=== PATIENT | female | born 1995 | race Caucasian/White ===

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

== ENCOUNTER 2017-04-17 13:39 | Emergency (ER) | payer OTHER ==
[~2017-04-17] VITALS: Ht 167.6 cm; Wt 81.6 kg
[~2017-04-17 13:39] MED LIST changes: +NAPR-695 PO; -NAPR375T3 PO
[2017-04-17 14:49] LABS: BASO # 0.1 x10^3/uL (0.0-0.2); BASO % 1 % (0-3); EOS % 1 % (0-3); HEMATOCRIT 27.6 % (36.0-47.0); HEMOGLOBIN 8.4 g/dL (12.0-15.5); LYMPH # 2.3 x10^3/uL (1.0-4.8); LYMPH % 31 % (24-48); MEAN CORPUSCULAR HEMOGLOBIN 21 pg (25-35); MEAN CORPUSCULAR HGB CONC 30 g/dL (31-37); MEAN CORPUSCULAR VOLUME 68 fL (79-100); MONO # 0.9 x10^3/uL (0.0-1.1); MONO % 13 % (0-9); NEUT % 55 % (31-73); PLATELET COUNT 348 x10^3/uL (140-400); RED BLOOD COUNT 4.08 x10^6/uL (3.50-5.40); RED CELL DISTRIBUTION WIDTH 18.6 % (11.5-14.5); WHITE BLOOD COUNT 7.3 x10^3/uL (4.0-11.0)
[2017-04-17 15:04] LABS: CALCIUM 9.5 mg/dL (8.5-10.1); CREATININE 0.9 mg/dL (0.6-1.0); GFR 80.7; MAGNESIUM 2.2 mg/dL (1.8-2.4); POTASSIUM 3.6 mmol/L (3.5-5.1); TOTAL BILIRUBIN 0.2 mg/dL (0.2-1.0); TOTAL PROTEIN 8.2 g/dL (6.4-8.2)
[2017-04-17] MEDS ORDERED: IV NORMAL SALINE 500ML 500 ML ONE (15:24)
[2017-04-17] MEDS ORDERED: VANCOMYCIN 1 GM VIAL. ONE (15:24)
[2017-04-17] MEDS ORDERED: VANCOMYCIN PER PHARMACY MC PRN (15:30)
[2017-04-17] MEDS ORDERED: PIPERACILLIN/TAZO IV Push 3.375 GM VIAL. IVP ONE (15:30)
[2017-04-17] MEDS ORDERED: PIPERACILLIN/TAZOBACTAM 3.375 GM in IV NORMAL SALINE 50ML 50 ML IV ONE (15:30)
[2017-04-17] MEDS ORDERED: VANCOMYCIN 2 GM in IV NORMAL SALINE 500ML 500 ML IV ONE (15:30)
[2017-04-17] MEDS ORDERED: ONDANSETRON PF 4 MG/2 ML VIAL. IV ONE (15:45)
--- NOTE | 2017-04-17 17:46 | PHYS DOC ---
Past History Past Medical History: Asthma Past Surgical History: No Surgical History Smoking: Cigarettes Alcohol Use: Occasionally Drug Use: Methamphetamine Adult General Chief Complaint Chief Complaint: UPPER EXTREMITY PAIN HPI HPI Patient is a 21-year-old female presenting to the emergency department for evaluation of left arm numbness status post methamphetamine injection 3 days ago. She is a IV drug abuser and has had intermittent numbness before in the past but has never lasted this long and now she is having fevers chills and dizziness weakness and some left shoulder numbness as well. She showed me that she injected to the proximal and superior of her antecubital fossa on the left side and she has numbness on her entire volar surface with intermittent dorsal numbness as well with sparing of her palm. Review of Systems Review of Systems Constitutional: + fever, chills [] Eyes: Denies change in visual acuity, redness, or eye pain [] HENT: Denies nasal congestion or sore throat [] Respiratory: Denies cough or shortness of breath [] Cardiovascular: No additional information not addressed in HPI [] GI: Denies abdominal pain, nausea, vomiting, bloody stools or diarrhea [] : Denies dysuria or hematuria [] Musculoskeletal: Denies back pain. + joint pain [] Integument: Denies rash or skin lesions [] Neurologic: Denies headache, focal weakness. + sensory changes [] All other systems were reviewed and found to be within normal limits, except as documented in this note. Current Medications Current Medications Current Medications Medications (Trade) Dose Ordered Sig/Freedom Start Time Stop Time Status Last Admin Dose Admin Ondansetron HCl (Zofran) 4 mg 1X ONCE 04/17/17 15:45 04/17/17 15:46 DC 04/17/17 15:38 4 MG Piperacillin Sod/ Tazobactam Sod (Zosyn) 3.375 gm 1X ONCE 04/17/17 15:30 04/17/17 15:31 DC 04/17/17 15:38 3.375 GM Piperacillin Sod/ Tazobactam Sod 3.375 gm/Sodium Chloride 50 ml @ 100 mls/hr 1X ONCE 04/17/17 15:30 04/17/17 15:30 DC Sodium Chloride 500 ml @ As Directed STK-MED ONCE 04/17/17 15:24 04/17/17 15:25 DC Vancomycin HCl 1 gm STK-MED ONCE 04/17/17 15:24 04/17/17 15:25 DC Vancomycin HCl (Vanco Per Pharmacy) 1 each PRN DAILY PRN 04/17/17 15:30 Vancomycin HCl 2 gm/Sodium Chloride 500 ml @ 250 mls/hr 1X ONCE 04/17/17 15:30 04/17/17 17:30 DC 04/17/17 15:39 250 MLS/HR Allergies Allergies Allergies Coded Allergies Type Severity Reaction Last Updated Verified No Known Drug Allergies 03/25/14 No Physical Exam Physical Exam Constitutional: Well developed, well nourished, no acute distress, non-toxic appearance. [] HENT: Normocephalic, atraumatic, bilateral external ears normal, oropharynx moist, no oral exudates, nose normal. [] Eyes: PERRLA, EOMI, conjunctiva normal, no discharge. [] Neck: Normal range of motion, no tenderness, supple, no stridor. [] Cardiovascular:Heart rate regular rhythm, no murmur [] Lungs & Thorax: Bilateral breath sounds clear to auscultation [] Abdomen: Bowel sounds normal, soft, no tenderness, no masses, no pulsatile masses. [] Skin: Warm, dry, no erythema, no rash. [] Back: No tenderness, no CVA tenderness. [] Extremities: No tenderness, no cyanosis, no clubbing, ROM intact, no edema. [] Neurologic: Alert and oriented X 3, normal motor function. Numbness to pinprick on the volar forearm. Intact sensation on palm of left hand. Intermittent numbness on the dorsal surface as well. Current Patient Data Lab Results Laboratory Tests Test 04/17/17 14:34 White Blood Count 7.3 x10^3/uL (4.0-11.0) Red Blood Count 4.08 x10^6/uL (3.50-5.40) Hemoglobin 8.4 g/dL (12.0-15.5) L Hematocrit 27.6 % (36.0-47.0) L Mean Corpuscular Volume 68 fL (79-100) L Mean Corpuscular Hemoglobin 21 pg (25-35) L Mean Corpuscular Hemoglobin Concent 30 g/dL (31-37) L Red Cell Distribution Width 18.6 % (11.5-14.5) H Platelet Count 348 x10^3/uL (140-400) Neutrophils (%) (Auto) 55 % (31-73) Lymphocytes (%) (Auto) 31 % (24-48) Monocytes (%) (Auto) 13 % (0-9) H Eosinophils (%) (Auto) 1 % (0-3) Basophils (%) (Auto) 1 % (0-3) Neutrophils # (Auto) 4.0 x10^3uL (1.8-7.7) Lymphocytes # (Auto) 2.3 x10^3/uL (1.0-4.8) Monocytes # (Auto) 0.9 x10^3/uL (0.0-1.1) Eosinophils # (Auto) 0.0 x10^3/uL (0.0-0.7) Basophils # (Auto) 0.1 x10^3/uL (0.0-0.2) Platelet Estimate Pending Prothrombin Time 11.4 SEC (9.4-11.4) Prothrombin Time INR 1.1 (0.9-1.1) PTT 24 SEC (23-33) Sodium Level 139 mmol/L (136-145) Potassium Level 3.6 mmol/L (3.5-5.1) Chloride Level 104 mmol/L (98-107) Carbon Dioxide Level 23 mmol/L (21-32) Anion Gap 12 (6-14) Blood Urea Nitrogen 15 mg/dL (7-20) Creatinine 0.9 mg/dL (0.6-1.0) Estimated GFR (Cockcroft-Gault) 80.7 BUN/Creatinine Ratio 17 (6-20) Glucose Level 83 mg/dL (70-99) Lactic Acid Level 1.8 mmol/L (0.4-2.0) Calcium Level 9.5 mg/dL (8.5-10.1) Magnesium Level 2.2 mg/dL (1.8-2.4) Total Bilirubin 0.2 mg/dL (0.2-1.0) Aspartate Amino Transferase (AST) 17 U/L (15-37) Alanine Aminotransferase (ALT) 15 U/L (14-59) Alkaline Phosphatase 44 U/L (46-116) L Creatine Kinase 73 U/L (26-192) C-Reactive Protein 1.1 mg/L (0-3.3) Total Protein 8.2 g/dL (6.4-8.2) Albumin 4.0 g/dL (3.4-5.0) Albumin/Globulin Ratio 1.0 (1.0-1.7) EKG EKG [] Radiology/Procedures Radiology/Procedures [] Course & Med Decision Making Course & Med Decision Making Patient is starting to have systemic symptoms with this numbness. Most likely she injected right into her nerve possibly her radial nerve. My concern is a numbness that is spreading up proximal to her arm and there is some concern for spinal epidural abscess. She was started on vancomycin and Zosyn and will be transferred to [facility] for possible further imaging studies such as MRI. Patient transferred in guarded condition. Dragon Disclaimer Dragon Disclaimer This electronic medical record was generated, in whole or in part, using a voice recognition dictation system. Departure Departure: Impression: Primary Impression: Numbness and tingling in left arm Additional Impressions: IVDU (intravenous drug user) Anemia Disposition: 05 XFER OTHER ([facility]) Condition: GUARDED Referrals: PCP,NO (PCP) Problem Qualifiers DILCIA COLLAZO DO Apr 17, 2017 17:46
[2017-04-17 20:00] VITALS: BP 109/61
[2017-04-17] MEDS ORDERED: methylPREDNISolone SOD SUCC PF 125 MG/2 ML VIAL. ONE (20:02)
[2017-04-17] MEDS ORDERED: diphenhydrAMINE 50 MG/ML VIAL ONE (20:02)
[2017-04-17] MEDS ORDERED: diphenhydrAMINE 50 MG/ML VIAL IVP ONE (20:30)
[2017-04-17] MEDS ORDERED: methylPREDNISolone SOD SUCC PF 125 MG/2 ML VIAL. IV ONE (20:30)
[2017-04-17 22:12] LABS: OVALOCYTES OCC; PLT ESTIMATE INCREASED (ADEQUATE); POLYCHROMASIA SLIGHT; SCHISTOCYTES OCC
== END 2017-04-17 20:00 | disposition short-term general hospital (02) ==
LOC: ER 13:39
DX: R20.0 Anesthesia of skin (principal); R20.2 Paresthesia of skin; F15.10 Other stimulant abuse, uncomplicated; D64.9 Anemia, unspecified; J45.909 Unspecified asthma, uncomplicated; F17.210 Nicotine dependence, cigarettes, uncomplicated
CPT/HCPCS: 36415; 80053; 82550; 83605; 83735; 85025; 85610; 85730; 86140; 87040; 96365; 96366; 96375; 99285; J1200; J2405; J2543; J2930; J3370; J7040

== ENCOUNTER 2017-05-30 19:58 | Emergency (ER) | payer SELFPAY ==
[~2017-05-30] VITALS: Ht 170.2 cm; Wt 80.5 kg
[2017-05-30 21:15] VITALS: BP 114/76
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
--- NOTE | 2017-05-31 08:00 | RAD ---
3 views of each wrist 05/30/2017 10:27 PM Indication: WRIST PAIN Comparison: None Findings: There is no fracture or dislocation identified. Articular surfaces are uninterrupted. Soft tissues are unremarkable. Impression: No evidence of acute osseous abnormality
== END 2017-05-30 21:23 | disposition home or self-care (01) ==
LOC: ER 19:58
DX: S63.501A Unspecified sprain of right wrist, initial encounter (principal); S63.502A Unspecified sprain of left wrist, initial encounter; F31.9 Bipolar disorder, unspecified; J45.909 Unspecified asthma, uncomplicated; F15.10 Other stimulant abuse, uncomplicated; F17.210 Nicotine dependence, cigarettes, uncomplicated; Z71.6 Tobacco abuse counseling; Y09 Assault by unspecified means; Y93.89 Activity, other specified; Y99.8 Other external cause status; Y92.89 Other specified places as the place of occurrence of the external cause
CPT/HCPCS: 73110; 99284

== ENCOUNTER 2017-09-10 19:12 | Emergency (ER) | payer OTHER ==
[~2017-09-10] VITALS: Ht 167.6 cm; Wt 81.6 kg
--- NOTE | 2017-09-10 19:20 | ED.ADGEN ---
Past History Past Medical History: Asthma, Bipolar Past Surgical History: Tonsillectomy Smoking: Cigarettes Alcohol Use: Occasionally Drug Use: Methamphetamine Adult General Chief Complaint Chief Complaint " .. I had some bleeding and cramping.. I am about 6 weeks.. ... but I had about 1/2 pad of blood on a pad.. and I just wanted get checked out... I had a US... they said it was in the right place at [place] last week.. and got a rhogram shot... " HPI HPI Patient is a 22 year old female who presents with above hx and complaints cramping and vaginal bleeding. Pt. estimated 6 weeks gravid. This is patient' s first . Patient denies any history of STDs. Patient has had 6 lifetime sex partners. No history of trauma. No history of contacts. Has not been taking vitamins. Patient denies drug use. Patient does smoke. Patient localizes pain in lower abdomen. And some back pain. Patient denies any specific ill contacts no recent travel. She states had normal stools. Has had some nausea. No history of bad food intake. Review of Systems Review of Systems Constitutional: Denies fever or chills [] Eyes: Denies change in visual acuity, redness, or eye pain [] HENT: Denies nasal congestion or sore throat [] Respiratory: Denies cough or shortness of breath [] Cardiovascular: No additional information not addressed in HPI [] GI: Complaints of abdominal pain, nausea,. Denies vomiting, bloody stools or diarrhea [] : Denies dysuria or hematuria []history of vaginal bleeding and cramping Musculoskeletal: Denies back pain or joint pain [] Integument: Denies rash or skin lesions [] Neurologic: Denies headache, focal weakness or sensory changes [] Endocrine: Denies polyuria or polydipsia [] All other systems were reviewed and found to be within normal limits, except as documented in this note. Family History Family History Noncontributory Current Medications Current Medications Current Medications Medications (Trade) Dose Ordered Sig/Freedom Start Time Stop Time Status Last Admin Dose Admin Lactated Ringer's 1,000 ml @ 1,000 mls/hr Q1H 09/10/17 19:54 09/10/17 20:53 DC 09/10/17 20:00 1,000 MLS/HR Allergies Allergies Allergies Coded Allergies Type Severity Reaction Last Updated Verified No Known Drug Allergies 03/25/14 No Physical Exam Physical Exam Constitutional: Mild to moderate distress, non-toxic appearance. [] HENT: Normocephalic, atraumatic, bilateral external ears normal, oropharynx moist, no oral exudates, nose normal. [] Eyes: PERRLA, EOMI, conjunctiva normal, no discharge. [] Neck: Normal range of motion, no tenderness, supple, no stridor. [] Cardiovascular:Heart rate regular rhythm, no murmur [] Lungs & Thorax: Bilateral breath sounds equal apex with scattered wheezes auscultation [] Abdomen: Bowel sounds normal, soft lower pelvic tenderness, no masses, no pulsatile masses. [] Vaginal exam shows minimal spotting from os. No significant cervical motion tenderness. No localization to either adnexal area. Rectal nontender. Skin: Warm, dry, no erythema, no rash. [] Back: No tenderness, no CVA tenderness. [] Extremities: No tenderness, no cyanosis, no clubbing, ROM intact, no edema. [] No psoas or obturator sign. Neurologic: Alert and oriented X 3, normal motor function, normal sensory function, no focal deficits noted. [] Psychologic: Affect anxious, judgement normal, mood normal. [] Current Patient Data Vital Signs Vital Signs Date Time Temp Pulse Resp B/P (MAP) Pulse Ox O2 Delivery O2 Flow Rate FiO2 09/10/17 21:35 98.1 88 20 120/62 (81) 99 Room Air Lab Results Laboratory Tests Test 09/10/17 18:54 09/10/17 19:35 09/10/17 20:50 POC Urine HCG, Qualitative hcg positive (Negative) Urine Collection Type Unknown Urine Color Yellow Urine Clarity Cloudy Urine pH 7.0 Urine Specific [place] 1.025 Urine Protein Trace (NEG-TRACE) Urine Glucose (UA) Neg mg/dL (NEG) Urine Ketones (Stick) Neg mg/dL (NEG) Urine Blood Neg (NEG) Urine Nitrite Neg (NEG) Urine Bilirubin Neg (NEG) Urine Urobilinogen Dipstick 1 mg/dL (0.2 mg/dL) Urine Leukocyte Esterase Neg (NEG) Urine RBC 3-5 /HPF (0-2) Urine WBC 1-4 /HPF (0-4) Urine Squamous Epithelial Cells Many /LPF Urine Bacteria Mod /HPF (0-FEW) Urine Mucus Mod /LPF Urine Opiates Screen Neg (NEG) Urine Methadone Screen Neg (NEG) Urine Barbiturates Neg (NEG) Urine Phencyclidine Screen Neg (NEG) Urine Amphetamine/Methamphetamine Neg (NEG) Urine Benzodiazepines Screen Neg (NEG) Urine Cocaine Screen Neg (NEG) Urine Cannabinoids Screen Pos (NEG) Urine Ethyl Alcohol Neg (NEG) Prothrombin Time 10.3 SEC (9.4-11.4) Prothrombin Time INR 1.0 (0.9-1.1) PTT 29 SEC (23-33) Maternal Serum HCG Beta Subunit 84860 mIU/mL (0-6) H Sodium Level 138 mmol/L (136-145) Potassium Level 3.5 mmol/L (3.5-5.1) Chloride Level 105 mmol/L (98-107) Carbon Dioxide Level 20 mmol/L (21-32) L Anion Gap 13 (6-14) Blood Urea Nitrogen 12 mg/dL (7-20) Creatinine 0.7 mg/dL (0.6-1.0) Estimated GFR (Cockcroft-Gault) 106.7 Glucose Level 105 mg/dL (70-99) H Calcium Level 8.0 mg/dL (8.5-10.1) L Total Bilirubin 0.1 mg/dL (0.2-1.0) L Direct Bilirubin < 0.1 mg/dL (0.0-0.2) Aspartate Amino Transferase (AST) 16 U/L (15-37) Alanine Aminotransferase (ALT) 14 U/L (14-59) Alkaline Phosphatase 61 U/L (46-116) Total Protein 7.3 g/dL (6.4-8.2) Albumin 3.5 g/dL (3.4-5.0) Lipase 71 U/L (73-393) L Microbiology 09/10/17 Wet Prep - Final, Complete Microbiology 09/10/17 Wet Prep - Final, Complete EKG EKG [] Radiology/Procedures Radiology/Procedures Ultrasound shows normal adnexal. Intrauterine of 6 weeks 4 days heart rate 124[] Course & Med Decision Making Course & Med Decision Making Pertinent Labs and Imaging studies reviewed. (See chart for details). Patient became inpatient waiting on blood work- begged patient to stay to complete her workup and receive rhogram. Explained risk of auto sensitization. Patient left AMA stated she was going to go eat. Patient to stay return anytime to complete her workup. Begged patient to follow-up cultures taken here. Patient take Tylenol for pain. Patient take vitamin. Patient follow-up with OB. Note- Pt. labs canceled by lab. This was not canceled by nursing. [] Final Impression Final Impression 1. Threaten 2. Blood Type-?? canceled by lab 3. []Marijuana and tobacco use 4. [facility] [place]- [id number] Dragon Disclaimer Chase Disclaimer This electronic medical record was generated, in whole or in part, using a voice recognition dictation system. NINI TRUJILLO MD September 10, 2017 19:20
[2017-09-10] MEDS ORDERED: IV RINGERS SOLUTION,LACTATED 1,000 ML IV SCH (19:54)
[2017-09-10 20:29] LABS: BACTERIA,URINE MOD /HPF (0-FEW); BILIRUBIN,URINE NEG (NEG); CLARITY,URINE CLOUDY; COLOR,URINE YELLOW; GLUCOSE,URINE NEG (NEG); NITRITE,URINE NEG (NEG); SQUAMOUS EPITHELIAL CELL,UR MANY /LPF; UROBILINOGEN,URINE 1 mg/dL (0.2 mg/dL)
[2017-09-10 21:35] VITALS: BP 120/62
--- NOTE | 2017-09-10 21:37 | RAD ---
First trimester OB ultrasound dated 09/10/2017. No comparison available. Clinical indication: Bleeding with . FINDINGS: Transabdominal and transvaginal imaging performed. Uterus measures 7.3 x 7.2 x 5.4 cm and is retroverted in location. Cervical length estimated at 3.2 cm. Gestational sac, yolk sac and pole in the endometrial canal. [place]-rump length measures 0.5 cm, correlating with a 6 week 2 days gestation. Gestational sac measures 1.8 cm, correlating with a 6 week 5 day gestation. Overall the estimated sonographic gestational age is 6 weeks 4 days for an estimated date of delivery of 05/02/2018. No subchorionic collection. pole grossly normal in morphology. Amniotic fluid volume appears appropriate. The placenta is not well evaluated. The right ovary measures 3.0 x 1.6 x 2.2 cm. Left ovary measures 3.4 x 1.5 x 2.0 cm. No adnexal mass or free fluid. IMPRESSION: Single viable intrauterine gestation with estimated sonographic gestational age of 6 weeks 4 days. No acute findings. Electronically signed by: Noé Lewis MD (09/10/2017 9:34 PM) [facility]
[2017-09-10 21:38] LABS: ALBUMIN 3.5 g/dL (3.4-5.0); ALK PHOS 61 U/L (46-116); ALT (SGPT) 14 U/L (14-59); ANION GAP 13 (6-14); AST (SGOT) 16 U/L (15-37); BLOOD UREA NITROGEN 12 mg/dL (7-20); CARBON DIOXIDE 20 mmol/L (21-32); CHLORIDE 105 mmol/L (98-107); CREATININE 0.7 mg/dL (0.6-1.0); GFR 106.7; GLUCOSE 105 mg/dL (70-99); LIPASE 71 U/L (73-393); POTASSIUM 3.5 mmol/L (3.5-5.1); SODIUM 138 mmol/L (136-145); TOTAL BILIRUBIN 0.1 mg/dL (0.2-1.0); TOTAL PROTEIN 7.3 g/dL (6.4-8.2)
[2017-09-10 21:39] LABS: DIRECT BILIRUBIN < 0.1 mg/dL (0.0-0.2)
[2017-09-10 22:03] LABS: BARBITURATES NEG (NEG); BENZODIAZEPINES NEG (NEG); CANNABINOIDS POS (NEG); COCAINE NEG (NEG); METHADONE NEG (NEG); OPIATES NEG (NEG); PHENCYCLIDINE NEG (NEG)
[2017-09-10 22:04] LABS: AMPHETAMINE/METHAMPHETAMINE NEG (NEG)
[2017-09-12 12:11] LABS: HCV ANTIBODY 0.5 s/co ratio (0.0-0.9); HEP A IGM ABDY Negative (Negative)
[2017-09-12 14:11] LABS: CHLAMYDIA PROBE Negative (Negative)
== END 2017-09-10 22:05 | disposition home or self-care (01) ==
LOC: ER 19:12
DX: O20.0 Threatened abortion (principal); O99.511 Diseases of the respiratory system complicating pregnancy, first trimester; O99.321 Drug use complicating pregnancy, first trimester; O99.331 Smoking (tobacco) complicating pregnancy, first trimester; J45.909 Unspecified asthma, uncomplicated; F15.10 Other stimulant abuse, uncomplicated; F31.9 Bipolar disorder, unspecified; Z3A.01 Less than 8 weeks gestation of pregnancy
CPT/HCPCS: 36415; 76801; 76817; 80048; 80074; 80076; 80307; 81001; 81025; 83690; 84702; 85610; 85730; 87491; 87591; 99285; J7120; Q0111; 87086; G0479

== ENCOUNTER 2018-06-10 16:33 | Emergency (ER) | payer OTHER ==
[~2018-06-10] VITALS: Ht 167.6 cm; Wt 92.5 kg
[~2018-06-10 16:33] MED LIST changes: +ALBU2.5V8 INH; -ALBU8.5H8 INH
--- NOTE | 2018-06-10 17:18 | PHYS DOC ---
Past History Past Medical History: Asthma, Bipolar Past Surgical History: Tonsillectomy Smoking: Cigarettes Alcohol Use: None Drug Use: None Adult General Chief Complaint Chief Complaint: WRIST PAIN HPI HPI 22-year-old female presents with left wrist pain. The patient was walking outside when she slipped on some ice and she fell on her outstretched left hand. She has pain along the radial side and there appears to be some ulnar deviation. She took 800 mg by her profound at home but this did not help with the pain. It is painful to the touch and painful to move. It is swollen. She denies any other injuries or complaints. Review of Systems Review of Systems Constitutional: Denies fever or chills [] Eyes: Denies change in visual acuity, redness, or eye pain [] HENT: Denies nasal congestion or sore throat [] Respiratory: Denies cough or shortness of breath [] Cardiovascular: No additional information not addressed in HPI [] GI: Denies abdominal pain, nausea, vomiting, bloody stools or diarrhea [] : Denies dysuria or hematuria [] Musculoskeletal: Left wrist pain[] Integument: Denies rash or skin lesions [] Neurologic: Denies headache, focal weakness or sensory changes [] Endocrine: Denies polyuria or polydipsia [] All other systems were reviewed and found to be within normal limits, except as documented in this note. Allergies Allergies Allergies Coded Allergies Type Severity Reaction Last Updated Verified No Known Drug Allergies 03/25/14 No Physical Exam Physical Exam Constitutional: Well developed, well nourished, no acute distress, non-toxic appearance. [] HENT: Normocephalic, atraumatic, bilateral external ears normal, oropharynx moist, no oral exudates, nose normal. [] Eyes: PERRLA, EOMI, conjunctiva normal, no discharge. [] Neck: Normal range of motion, no tenderness, supple, no stridor. [] Cardiovascular:Heart rate regular rhythm, no murmur [] Lungs & Thorax: Bilateral breath sounds clear to auscultation [] Abdomen: Bowel sounds normal, soft, no tenderness, no masses, no pulsatile masses. [] Skin: Warm, dry, no erythema, no rash. [] Back: No tenderness, no CVA tenderness. [] Extremities: Left wrist tender to palpation, some ulnar deviation at the wrist, swelling of the radial side left wrist. No ecchymosis.[] Neurologic: Alert and oriented X 3, normal motor function, normal sensory function, no focal deficits noted. [] Psychologic: Affect normal, judgement normal, mood normal. [] Current Patient Data Vital Signs Vital Signs Date Time Temp Pulse Resp B/P (MAP) Pulse Ox O2 Delivery O2 Flow Rate FiO2 06/10/18 16:40 97.5 81 16 98 Room Air EKG EKG [] Radiology/Procedures Radiology/Procedures [] Impressions: Pulmonary interpretation: No fracture or dislocation seen in the left wrist. Course & Med Decision Making Course & Med Decision Making Pertinent Labs and Imaging studies reviewed. (See chart for details) The wrist x-rays are negative for fracture. Believe she just has a sprained wrist. I will put her in a splint and give her a short course of [place] for pain relief. If the pain does not improve in one week, she will seek further orthopedic follow-up. [] Dragon Disclaimer Dragon Disclaimer This electronic medical record was generated, in whole or in part, using a voice recognition dictation system. Departure Departure: Impression: Primary Impression: Left wrist sprain Disposition: HOME, SELF-CARE Condition: STABLE Referrals: PCP,NO (PCP) Patient Instructions: Wrist Sprain with Rehab-[facility] Scripts Hydrocodone Bit/Acetaminophen (NORCO 5-325 TABLET) 1 Each Tablet 1 TAB PO PRN Q6HRS PRN for PAIN, #10 TAB 0 Refills Prov: SAWYER THORNE DO 06/10/18 Problem Qualifiers Primary Impression: Left wrist sprain Encounter type: initial encounter Qualified Codes: S63.502A - Unspecified sprain of left wrist, initial encounter SAWYER THORNE DO Jun 10, 2018 17:17
[2018-06-10] MEDS ORDERED: HYDR-3165 PO (17:55)
[2018-06-10] MEDS ORDERED: HYDROcodone/APAP 5/325MG 1 TAB TABLET PO ONE (18:00)
[2018-06-10 18:05] VITALS: BP 136/77
--- NOTE | 2018-06-10 21:25 | RAD ---
Indication: Injury to the left wrist TECHNIQUE: 3 views of the left wrist COMPARISON: None Findings/ impression: No acute fracture or dislocation. Electronically signed by: Jimy Rendon DO (06/10/2018 9:22 PM) [facility]
== END 2018-06-10 18:07 | disposition home or self-care (01) ==
LOC: ER 16:33
DX: S63.502A Unspecified sprain of left wrist, initial encounter (principal); J45.909 Unspecified asthma, uncomplicated; F31.9 Bipolar disorder, unspecified; F17.210 Nicotine dependence, cigarettes, uncomplicated; W00.0XXA Fall on same level due to ice and snow, initial encounter; Y93.01 Activity, walking, marching and hiking; Y92.89 Other specified places as the place of occurrence of the external cause; Y99.8 Other external cause status
CPT/HCPCS: 29125; 73110; 99283

== ENCOUNTER 2018-06-19 14:21 | Emergency (ER) | payer OTHER ==
[~2018-06-19] VITALS: Ht 167.6 cm; Wt 92.5 kg
[~2018-06-19 14:21] MED LIST changes: +HYDR-3165 PO
[2018-06-19 14:32] VITALS: BP 122/88
--- NOTE | 2018-06-19 15:06 | PHYS DOC ---
Past History Past Medical History: No Pertinent History Past Surgical History: Tonsillectomy Smoking: Cigarettes Additional Smoking Information: 04/17 PPD Alcohol Use: None Drug Use: None Adult General Chief Complaint Chief Complaint: UPPER EXTREMITY PAIN HPI HPI Patient is a 22 year old left-handed female who presents with complaining of left wrist pain. Patient states she had a fall 10 days ago and seen in this emergency room and treated for just a strain after negative x-ray with [place] and this is pending but her pain is not getting better and she was not able to see orthopedic physician because of insurance problem. She rated her pain 9/10 and denies focal neuro deficit & states her pain did not get better with ibuprofen. Review of Systems Review of Systems Constitutional: Denies fever or chills [] Eyes: Denies change in visual acuity, redness, or eye pain [] HENT: Denies nasal congestion or sore throat [] Respiratory: Denies cough or shortness of breath [] Cardiovascular: No additional information not addressed in HPI [] GI: Denies abdominal pain, nausea, vomiting, bloody stools or diarrhea [] : Denies dysuria or hematuria [] Musculoskeletal: Denies back pain or joint pain [] Integument: Denies rash or skin lesions [] Neurologic: Denies headache, focal weakness or sensory changes [] Endocrine: Denies polyuria or polydipsia [] All other systems were reviewed and found to be within normal limits, except as documented in this note. Allergies Allergies Allergies Coded Allergies Type Severity Reaction Last Updated Verified No Known Drug Allergies 03/25/14 No Physical Exam Physical Exam Constitutional: Well developed, well nourished, no acute distress, non-toxic appearance. [] HENT: Normocephalic, atraumatic Eyes: PERRLA, EOMI, conjunctiva normal, no discharge. [] Neck: Normal range of motion, no tenderness, supple, no stridor. [] Cardiovascular:Heart rate regular rhythm, no murmur [] Lungs & Thorax: Bilateral breath sounds clear to auscultation [] Extremities: Left wrist with no deformity, mild edema in medial side of his, no neurovascular deficit Neurologic: Alert and oriented X 3, normal motor function, normal sensory function, no focal deficits noted. [] Psychologic: Affect normal, judgement normal, mood normal. [] Current Patient Data Vital Signs Vital Signs Date Time Temp Pulse Resp B/P (MAP) Pulse Ox O2 Delivery O2 Flow Rate FiO2 06/19/18 14:32 98.4 90 14 100 Room Air EKG EKG [] Radiology/Procedures Radiology/Procedures [address] [id number] IMAGING REPORT Signed PATIENT: HARIS ORTA ACCOUNT: [id number] : 1995 LOCATION: ER AGE: 22 SEX: F EXAM STATUS: REG ER ORD. PHYSICIAN: AMARIS CASTRO MD REASON: left wrist injury PROCEDURE: CT UPPR EXTREMTY WO CONTRST LT CT of the left wrist without contrast, 06/19/2018: HISTORY: Previous fall, continued wrist pain Noncontrast scans were obtained with multiplanar reconstructions produced. No fracture or dislocation is identified. No mass or abnormal fluid collection is seen. There is mild subcutaneous edema. IMPRESSION: No acute bony abnormality is detected. RS Compliance Statement: One or more of the following individualized dose reduction techniques were utilized for this examination: 1. Automated exposure control 2. Adjustment of the mA and/or kV according to patient size 3. Use of iterative reconstruction technique Electronically signed by: Spike Maya MD (06/19/2018 3:14 PM) [facility] DICTATED AND SIGNED BY: SPIKE MAYA MD DATE: 06/19/18 1509 CC: AMARIS CASTRO MD; PCP,NO ~ Course & Med Decision Making Course & Med Decision Making Pertinent Imaging studies reviewed. (See chart for details) discharge: I've spoken with the patient and/or caregivers. I've explained the patient's condition, diagnosis and treatment plan based on information available to me at this time. I've answered the patient's and/or caregivers questions and addressed any concerns. The patient and/or caregivers have a good understanding the patient's diagnosis, condition and treatment plan as can be expected at this point. Vital signs have been stabilized. The patient's condition is stable for discharge from the emergency department. The patient will pursue further outpatient evaluation with her primary care provider or other designated consulting physician as outlined in the discharge instructions. Patient and/or caregivers are agreeable to this plan of care and follow-up instructions have been explained in detail. The patient and/or caregivers have received these instructions in written format and expressed understanding of these discharge instructions. The patient and her caregivers are aware that if any significant change in condition or worsening of symptoms should prompt him to immediately return to this of the closest emergency department. If an emergent department is not readily available I would encourage him to call 911. Chase Disclaimer Dragon Disclaimer This electronic medical record was generated, in whole or in part, using a voice recognition dictation system. Departure Departure: Impression: Primary Impression: Left wrist sprain Disposition: HOME, SELF-CARE (at 1527) Condition: STABLE Referrals: PCP,NO (PCP) Patient Instructions: Wrist Sprain with Rehab-SportsMed Additional Instructions: Use home with the splint Follow-up with primary care physician in 2 or 3 days Scripts Naproxen (NAPROSYN) 500 Mg Tablet 500 MG PO BID for pain, #20 TAB Prov: AMARIS CASTRO MD 06/19/18 Cyclobenzaprine Hcl (CYCLOBENZAPRINE HCL) 10 Mg Tablet 1 TAB PO TID for pain, #20 TAB Prov: AMARIS CASTRO MD 06/19/18 AMARIS CASTRO MD Jun 19, 2018 15:06
--- NOTE | 2018-06-19 15:16 | RAD ---
CT of the left wrist without contrast, 06/19/2018: HISTORY: Previous fall, continued wrist pain Noncontrast scans were obtained with multiplanar reconstructions produced. No fracture or dislocation is identified. No mass or abnormal fluid collection is seen. There is mild subcutaneous edema. IMPRESSION: No acute bony abnormality is detected. PQRS Compliance Statement: One or more of the following individualized dose reduction techniques were utilized for this examination: 1. Automated exposure control 2. Adjustment of the mA and/or kV according to patient size 3. Use of iterative reconstruction technique Electronically signed by: Spike Maya MD (06/19/2018 3:14 PM) [facility] [place]
[2018-06-19] MEDS ORDERED: CYCL-331 PO (15:28)
[2018-06-19] MEDS ORDERED: NAPR-683 PO (15:29)
== END 2018-06-19 15:31 | disposition home or self-care (01) ==
LOC: ER 14:21
DX: S63.502D Unspecified sprain of left wrist, subsequent encounter (principal); F17.210 Nicotine dependence, cigarettes, uncomplicated; W18.30XD Fall on same level, unspecified, subsequent encounter
CPT/HCPCS: 73200; 99284-25

== ENCOUNTER 2018-07-31 14:13 | Emergency (ER) | payer OTHER ==
[~2018-07-31] VITALS: Ht 167.6 cm; Wt 102.2 kg
[2018-07-31 14:13] VITALS: BP 120/72
[~2018-07-31 14:13] MED LIST changes: +CYCL-331 PO; +NAPR-683 PO
--- NOTE | 2018-07-31 15:14 | RAD ---
Examination: CT MAXILLOFACIAL WO CONTRAST History: Right jaw, ear, cheek pain after being hit with a softball 07/30/18 Comparison/Correlation: None Findings: Axial images of maxillofacial structures were obtained. Sagittal and coronal reformatted images were provided. Globes and optic nerves are unremarkable. Extra ocular muscles are unremarkable. Submandibular and parotid glands are unremarkable. Pharynx is unremarkable. Minimal mucosal opacification of the left fracture sinus is noted. Maxillary sinus ostia are patent. Temporomandibular joints are symmetric and unremarkable. No displaced fracture or bony destruction. Mastoid air cells and external auditory canals are unremarkable. Piercing involving the left upper lip is present. Right upper first premolar dental caries noted. Impression: No hematoma collection. No fracture. Right upper first premolar dental caries noted. PQRS Compliance Statement: One or more of the following individualized dose reduction techniques were utilized for this examination: 1. Automated exposure control 2. Adjustment of the mA and/or kV according to patient size 3. Use of iterative reconstruction technique Electronically signed by: Jamal Lomeli MD (07/31/2018 3:12 PM) [id number]
[2018-07-31] MEDS ORDERED: MELO7.5T29 PO (15:47)
[2018-07-31] MEDS ORDERED: TRAM50TA PO (15:47)
--- NOTE | 2018-07-31 15:47 | PHYS DOC ---
Past History Past Medical History: No Pertinent History Past Surgical History: Tonsillectomy Smoking: Cigarettes Alcohol Use: None Drug Use: None Adult General Chief Complaint Chief Complaint: FACE PROBLEM HPI HPI Patient is a 23-year-old female presents complaining of right jaw pain after a softball was thrown accidentally striking her in the jaw yesterday. Increased pain with movement. No home medicines have been taken. Patient denies any chance of her being since her IUD was just removed yesterday. Denies any nausea or vomiting. No difficulty swallowing. No head trauma. [] Review of Systems Review of Systems Constitutional: Denies fever or chills [] Eyes: Denies change in visual acuity, redness, or eye pain [] HENT: Denies nasal congestion or sore throat [] Respiratory: Denies cough or shortness of breath [] Cardiovascular: No chest pain or palpitations[] GI: Denies abdominal pain, nausea, vomiting, bloody stools or diarrhea [] : Denies dysuria or hematuria [] Musculoskeletal: Denies back pain or joint pain [] Integument: Denies rash or skin lesions [] Neurologic: Denies headache, focal weakness or sensory changes [] Endocrine: Denies polyuria or polydipsia [] All other systems were reviewed and found to be within normal limits, except as documented in this note. Allergies Allergies Allergies Coded Allergies Type Severity Reaction Last Updated Verified No Known Drug Allergies 03/25/14 No Physical Exam Physical Exam Constitutional: Well developed, well nourished, mild discomfort, non-toxic appearance. [] HENT: Normocephalic, tenderness along the right jaw. There is no step-off along the jaw. Limited mouth opening secondary to pain. No inner oral lesions or bleeding noted, bilateral external ears normal, oropharynx moist, no oral exudates, nose normal. [] Eyes: PERRLA, EOMI, conjunctiva normal, no discharge. [] Neck: Normal range of motion, no tenderness, supple, no stridor. [] Cardiovascular:Heart rate regular rhythm, no murmur [] Lungs & Thorax: Bilateral breath sounds clear to auscultation [] Abdomen: Examined. [] Skin: Warm, dry, no erythema, no rash. [] Back: No tenderness, no CVA tenderness. [] Extremities: No tenderness, no cyanosis, no clubbing, ROM intact, no edema. [] Neurologic: Alert and oriented X 3, normal motor function, normal sensory function, no focal deficits noted. [] Psychologic: Affect normal, judgement normal, mood normal. [] EKG EKG [] Radiology/Procedures Radiology/Procedures PROCEDURE: CT MAXILLOFACIAL WO CONTRAST Examination: CT MAXILLOFACIAL WO CONTRAST History: Right jaw, ear, cheek pain after being hit with a softball 07/30/18 Comparison/Correlation: None Findings: Axial images of maxillofacial structures were obtained. Sagittal and coronal reformatted images were provided. Globes and optic nerves are unremarkable. Extra ocular muscles are unremarkable. Submandibular and parotid glands are unremarkable. Pharynx is unremarkable. Minimal mucosal opacification of the left fracture sinus is noted. Maxillary sinus ostia are patent. Temporomandibular joints are symmetric and unremarkable. No displaced fracture or bony destruction. Mastoid air cells and external auditory canals are unremarkable. Piercing involving the left upper lip is present. Right upper first premolar dental caries noted. Impression: No hematoma collection. No fracture. Right upper first premolar dental caries noted. [] Course & Med Decision Making Course & Med Decision Making Pertinent Labs and Imaging studies reviewed. (See chart for details) Medical decision making: There is no evidence of a fracture or dislocation. We will cover the patient for pain management and have her follow-up with her primary care team.[] Dragon Disclaimer Dragon Disclaimer This electronic medical record was generated, in whole or in part, using a voice recognition dictation system. Departure Departure: Impression: Primary Impression: Contusion of jaw Additional Impression: Dental caries Disposition: 01 HOME, SELF-CARE Condition: IMPROVED Referrals: PCP,NO (PCP) Patient Instructions: Contusion, Dental Caries, Jaw, Range of Motion Exercises , [id number] Additional Instructions: Follow-up with your regular doctor and dentist. If you do not have a regular doctor dentist a list of local providers will be given to you. Return to the ER if worsening pain or any other concerns. Scripts Tramadol Hcl (TRAMADOL HCL) 50 Mg Tablet 50 MG PO PRN Q6HRS PRN for PAIN, #20 TAB Prov: LEIDY TAPIA DO 07/31/18 Meloxicam (MELOXICAM) 7.5 Mg Tablet 7.5 MG PO DAILY for PAIN, #20 TAB Prov: LEIDY TAPIA DO 07/31/18 Problem Qualifiers Primary Impression: Contusion of jaw Encounter type: initial encounter Qualified Codes: S00.83XA - Contusion of other part of head, initial encounter LEIDY TAPIA DO Jul 31, 2018 15:47
[2018-07-31] MEDS ORDERED: IBUPROFEN 600 MG TABLET. PO ONE (16:00)
== END 2018-07-31 15:53 | disposition home or self-care (01) ==
LOC: ER 14:13
DX: S00.83XA Contusion of other part of head, initial encounter (principal); K02.9 Dental caries, unspecified; F17.210 Nicotine dependence, cigarettes, uncomplicated; W21.07XA Struck by softball, initial encounter; Y93.89 Activity, other specified; Y92.89 Other specified places as the place of occurrence of the external cause; Y99.8 Other external cause status
CPT/HCPCS: 70486; 99284-25

== ENCOUNTER 2018-08-07 00:39 | Emergency (ER) | payer SELFPAY ==
[~2018-08-07] VITALS: Ht 167.6 cm; Wt 99.8 kg
[~2018-08-07 00:39] MED LIST changes: +MELO7.5T29 PO; +TRAM50TA PO
--- NOTE | 2018-08-07 00:42 | ED.ADGEN ---
Past History Past Medical History: Asthma Past Surgical History: Tonsillectomy, Other Smoking: Cigarettes Alcohol Use: None Drug Use: None Adult General Chief Complaint Chief Complaint " .. I am vomiting.. may stomach hurt like when I had a hernia.. and the surgery to repair it when I was [age].. and again when I was 17.. .. they said I had a l ot of scar tissue.. I did eat [employer] [place] about three hours ago..." HPI HPI Patient is a 23 year old female who presents with above hx of nausea, vomiting and abd. pain.,. Pain is generalized and described as severe.. Pt. has had previous umbilicus hernia repair age 7, and repeat surgery for scaring and infection in same area age 17. Does have history of previous partial bowel ileus is because of adhesions. History of prior ovarian cysts and recent diagnosed with a persistent complex cyst on right ovarian. Pt. denies any history of bad food intake. No history of vaginal discharge. Did eat approximately 3 hours ago [employer]. Patient had a stool yesterday. Patient denies any trauma. Patient denies any specific ill contacts. Patient actively vomiting in the emergency department what appears to be the [employer]. meal. Pt. has rebound to epigastric and Rt. upper quadrant. Denies history of vaginal discharge. Denies history of STDs. Patient did have reportedly a normal stool yesterday. Patient has had some history of constipation. Review of Systems Review of Systems Constitutional: Denies fever or chills [] Eyes: Denies change in visual acuity, redness, or eye pain [] HENT: Denies nasal congestion or sore throat [] Respiratory: Denies cough or shortness of breath [] Cardiovascular: No additional information not addressed in HPI [] GI: Complains of generalized abdominal pain, nausea, vomiting,. Denies bloody stools or diarrhea [] : Denies dysuria or hematuria [] Musculoskeletal: Denies back pain or joint pain [] Integument: Denies rash or skin lesions [] Neurologic: Denies headache, focal weakness or sensory changes [] Endocrine: Denies polyuria or polydipsia [] All other systems were reviewed and found to be within normal limits, except as documented in this note. Family History Family History Noncontributory Current Medications Current Medications Current Medications Medications (Trade) Dose Ordered Sig/Freedom Start Time Stop Time Status Last Admin Dose Admin Famotidine (Pepcid Vial) 20 mg 1X ONCE 08/07/18 01:00 08/07/18 01:06 DC 08/07/18 01:40 20 MG Info (Do NOT chart on this entry -- for MONITORING) 1 each PRN DAILY PRN 08/07/18 02:30 08/07/18 05:45 DC Iohexol (Omnipaque 240 Mg/ml) 30 ml 1X ONCE 08/07/18 02:30 08/07/18 02:31 DC 08/07/18 03:47 30 ML Iohexol (Omnipaque 300 Mg/ml) 75 ml 1X ONCE 08/07/18 02:30 08/07/18 02:31 DC 08/07/18 03:47 75 ML Lactated Ringer's 1,000 ml @ 1,000 mls/hr 1X ONCE 08/07/18 05:15 08/07/18 05:45 DC 08/07/18 05:07 1,000 MLS/HR Magnesium Hydroxide (Milk Of Magnesia) 2,400 mg 1X ONCE 08/07/18 01:00 08/07/18 01:06 DC 08/07/18 02:29 2,400 MG Morphine Sulfate (Morphine 10mg Syringe) 10 mg 1X ONCE 08/07/18 05:30 08/07/18 05:31 UNV Nicotine (Nicoderm Cq 21mg) 1 patch 1X ONCE 08/07/18 05:30 08/07/18 05:31 DC 08/07/18 05:34 1 PATCH Ondansetron HCl (Zofran) 8 mg 1X ONCE 08/07/18 04:30 08/07/18 04:31 DC 08/07/18 04:24 8 MG Allergies Allergies Allergies Coded Allergies Type Severity Reaction Last Updated Verified No Known Drug Allergies 03/25/14 No Physical Exam Physical Exam Constitutional: in acute distress, non-toxic appearance. [] HENT: Normocephalic, atraumatic, bilateral external ears normal, oropharynx moist, no oral exudates, nose normal. Lip stud. Eyes: PERRLA, EOMI, conjunctiva normal, no discharge. [] Neck: Normal range of motion, no tenderness, supple, no stridor. [] Cardiovascular:Heart rate regular rhythm, no murmur [] Lungs & Thorax: Bilateral breath sounds equal apex scattered wheezes auscultation [] Abdomen: Bowel sounds are proactive, soft, generalized tenderness, no masses, no pulsatile masses. [] Some rebound to epigastric and right upper quadrant. Old umbilicus surgery hernia repair scar. Declined rectal at this time. Skin: Warm, dry, no erythema, no rash. [] Back: No tenderness, no CVA tenderness. [] Extremities: No tenderness, no cyanosis, no clubbing, ROM intact, no edema. [] Neurologic: Alert and oriented X 3, normal motor function, normal sensory function, no focal deficits noted. [] Psychologic: Affect anxious, judgement normal, mood normal. [] Current Patient Data Vital Signs Vital Signs Date Time Temp Pulse Resp B/P (MAP) Pulse Ox O2 Delivery O2 Flow Rate FiO2 08/07/18 05:35 18 100 08/07/18 05:11 97.6 78 130/83 (99) Room Air Lab Results Laboratory Tests Test 08/07/18 00:45 08/07/18 01:07 08/07/18 01:20 Urine Collection Type Unknown Urine Color Yellow Urine Clarity Clear Urine pH 6.0 Urine Specific [place] 1.025 Urine Protein Neg (NEG-TRACE) Urine Glucose (UA) Neg mg/dL (NEG) Urine Ketones (Stick) Neg mg/dL (NEG) Urine Blood Neg (NEG) Urine Nitrite Neg (NEG) Urine Bilirubin Neg (NEG) Urine Urobilinogen Dipstick 0.2 mg/dL (0.2 mg/dL) Urine Leukocyte Esterase Neg (NEG) Urine RBC 0 /HPF (0-2) Urine WBC Occ /HPF (0-4) Urine Squamous Epithelial Cells Few /LPF Urine Bacteria 0 /HPF (0-FEW) Urine Opiates Screen Neg (NEG) Urine Methadone Screen Neg (NEG) Urine Barbiturates Neg (NEG) Urine Phencyclidine Screen Neg (NEG) Urine Amphetamine/Methamphetamine Neg (NEG) Urine Benzodiazepines Screen Pos (NEG) Urine Cocaine Screen Neg (NEG) Urine Cannabinoids Screen Neg (NEG) Urine Ethyl Alcohol Neg (NEG) POC Urine HCG, Qualitative hcg negative (Negative) White Blood Count 9.4 x10^3/uL (4.0-11.0) Red Blood Count 4.21 x10^6/uL (3.50-5.40) Hemoglobin 12.4 g/dL (12.0-15.5) Hematocrit 37.3 % (36.0-47.0) Mean Corpuscular Volume 89 fL (79-100) Mean Corpuscular Hemoglobin 30 pg (25-35) Mean Corpuscular Hemoglobin Concent 33 g/dL (31-37) Red Cell Distribution Width 13.8 % (11.5-14.5) Platelet Count 265 x10^3/uL (140-400) Neutrophils (%) (Auto) 50 % (31-73) Lymphocytes (%) (Auto) 38 % (24-48) Monocytes (%) (Auto) 10 % (0-9) H Eosinophils (%) (Auto) 2 % (0-3) Basophils (%) (Auto) 1 % (0-3) Neutrophils # (Auto) 4.6 x10^3uL (1.8-7.7) Lymphocytes # (Auto) 3.5 x10^3/uL (1.0-4.8) Monocytes # (Auto) 0.9 x10^3/uL (0.0-1.1) Eosinophils # (Auto) 0.2 x10^3/uL (0.0-0.7) Basophils # (Auto) 0.1 x10^3/uL (0.0-0.2) Prothrombin Time 9.7 SEC (9.4-11.4) Prothrombin Time INR 1.0 (0.9-1.1) PTT 27 SEC (23-33) Maternal Serum HCG Beta Subunit < 1 mIU/mL (0-6) Sodium Level 139 mmol/L (136-145) Potassium Level 3.7 mmol/L (3.5-5.1) Chloride Level 105 mmol/L (98-107) Carbon Dioxide Level 25 mmol/L (21-32) Anion Gap 9 (6-14) Blood Urea Nitrogen 13 mg/dL (7-20) Creatinine 0.7 mg/dL (0.6-1.0) Estimated GFR (Cockcroft-Gault) 105.6 Glucose Level 98 mg/dL (70-99) Calcium Level 9.3 mg/dL (8.5-10.1) Total Bilirubin 0.2 mg/dL (0.2-1.0) Direct Bilirubin < 0.1 mg/dL (0.0-0.2) Aspartate Amino Transferase (AST) 8 U/L (15-37) L Alanine Aminotransferase (ALT) 11 U/L (14-59) L Alkaline Phosphatase 54 U/L (46-116) Troponin I Quantitative < 0.017 ng/mL (0-0.055) Total Protein 7.6 g/dL (6.4-8.2) Albumin 3.5 g/dL (3.4-5.0) Amylase Level 72 U/L (25-115) Lipase 71 U/L (73-393) L EKG EKG [] Radiology/Procedures Radiology/Procedures My interpretation of acute abdomen film shows no acute cardiopulmonary findings. No findings of free air under the diaphragm. Nonspecific bowel gas pattern. Does have increased stool throughout the colon cystoscopy constipation. CT interpretation reportedly showed right adnexal cystic lesion-ovarian. No hydronephrosis. Appendix was dilated but no findings of adjacent inflammatory changes.-Possible early appendicitis[] Course & Med Decision Making Course & Med Decision Making Pertinent Labs and Imaging studies reviewed. (See chart for details) Transfer to [facility] - Dr. Fournier accepting. Consult with Dr. Miner. Patient report to have repeat CT and ultrasound [] Final Impression Final Impression 1. Abdomen pain 2. Nausea and vomiting 3. History of umbilicus hernia repair / repeat surgery scar.[] 4. Rt.Ovarian Cyst- Hx. of Ovarian Cysts 5. Appendix Dilated- No definite adjacent inflammatory changes 6. History of prior bowel adhesions and partial ileus 7. History of constipation Dragon Disclaimer Dragon Disclaimer This electronic medical record was generated, in whole or in part, using a voice recognition dictation system. Discharge Summary Visit Information Final Diagnosis Problems Medical Problems: (1) Nausea and vomiting Status: Acute (2) Pain in the abdomen Status: Acute Brief Hospital Course Allergies Allergies Coded Allergies Type Severity Reaction Last Updated Verified No Known Drug Allergies 03/25/14 No Vital Signs Vital Signs Date Time Temp Pulse Resp B/P (MAP) Pulse Ox O2 Delivery O2 Flow Rate FiO2 08/07/18 05:35 18 100 08/07/18 05:11 97.6 78 130/83 (99) Room Air Lab Results Laboratory Tests Test 08/07/18 00:45 08/07/18 01:07 08/07/18 01:20 Urine Collection Type Unknown Urine Color Yellow Urine Clarity Clear Urine pH 6.0 Urine Specific [place] 1.025 Urine Protein Neg (NEG-TRACE) Urine Glucose (UA) Neg mg/dL (NEG) Urine Ketones (Stick) Neg mg/dL (NEG) Urine Blood Neg (NEG) Urine Nitrite Neg (NEG) Urine Bilirubin Neg (NEG) Urine Urobilinogen Dipstick 0.2 mg/dL (0.2 mg/dL) Urine Leukocyte Esterase Neg (NEG) Urine RBC 0 /HPF (0-2) Urine WBC Occ /HPF (0-4) Urine Squamous Epithelial Cells Few /LPF Urine Bacteria 0 /HPF (0-FEW) Urine Opiates Screen Neg (NEG) Urine Methadone Screen Neg (NEG) Urine Barbiturates Neg (NEG) Urine Phencyclidine Screen Neg (NEG) Urine Amphetamine/Methamphetamine Neg (NEG) Urine Benzodiazepines Screen Pos (NEG) Urine Cocaine Screen Neg (NEG) Urine Cannabinoids Screen Neg (NEG) Urine Ethyl Alcohol Neg (NEG) Bedside Urine HCG, Qualitative hcg negative (Negative) White Blood Count 9.4 x10^3/uL (4.0-11.0) Red Blood Count 4.21 x10^6/uL (3.50-5.40) Hemoglobin 12.4 g/dL (12.0-15.5) Hematocrit 37.3 % (36.0-47.0) Mean Corpuscular Volume 89 fL (79-100) Mean Corpuscular Hemoglobin 30 pg (25-35) Mean Corpuscular Hemoglobin Concent 33 g/dL (31-37) Red Cell Distribution Width 13.8 % (11.5-14.5) Platelet Count 265 x10^3/uL (140-400) Neutrophils (%) (Auto) 50 % (31-73) Lymphocytes (%) (Auto) 38 % (24-48) Monocytes (%) (Auto) 10 % (0-9) Eosinophils (%) (Auto) 2 % (0-3) Basophils (%) (Auto) 1 % (0-3) Neutrophils # (Auto) 4.6 x10^3uL (1.8-7.7) Lymphocytes # (Auto) 3.5 x10^3/uL (1.0-4.8) Monocytes # (Auto) 0.9 x10^3/uL (0.0-1.1) Eosinophils # (Auto) 0.2 x10^3/uL (0.0-0.7) Basophils # (Auto) 0.1 x10^3/uL (0.0-0.2) Prothrombin Time 9.7 SEC (9.4-11.4) Prothromb Time International Ratio 1.0 (0.9-1.1) Activated Partial Thromboplast Time 27 SEC (23-33) Maternal Serum HCG Beta Subunit < 1 mIU/mL (0-6) Sodium Level 139 mmol/L (136-145) Potassium Level 3.7 mmol/L (3.5-5.1) Chloride Level 105 mmol/L (98-107) Carbon Dioxide Level 25 mmol/L (21-32) Anion Gap 9 (6-14) Blood Urea Nitrogen 13 mg/dL (7-20) Creatinine 0.7 mg/dL (0.6-1.0) Estimated GFR (Cockcroft-Gault) 105.6 Glucose Level 98 mg/dL (70-99) Calcium Level 9.3 mg/dL (8.5-10.1) Total Bilirubin 0.2 mg/dL (0.2-1.0) Direct Bilirubin < 0.1 mg/dL (0.0-0.2) Aspartate Amino Transf (AST/SGOT) 8 U/L (15-37) Alanine Aminotransferase (ALT/SGPT) 11 U/L (14-59) Alkaline Phosphatase 54 U/L (46-116) Troponin I Quantitative < 0.017 ng/mL (0-0.055) Total Protein 7.6 g/dL (6.4-8.2) Albumin 3.5 g/dL (3.4-5.0) Amylase Level 72 U/L (25-115) Lipase 71 U/L (73-393) Brief Hospital Course Ms. Cutler is a 23 old female who presented with abd. pain. Transfer to [facility] Dr Debbie Fournier - Surgical consult - possible early appendicitis. Dr. Miner -History of complex right Ovarian cyst. Discharge Information Condition at Discharge: Stable Dischare Medications Current Medications Lactated Ringer's 1,000 ml @ 1,000 mls/hr Q1H IV Last administered on 08/07/18at 01:40; Admin Dose 1,000 MLS/HR; Start 08/07/18 at 01:00; Stop 08/07/18 at 01:59; Status DC Ondansetron HCl (Zofran) 8 mg 1X ONCE IV Last administered on 08/07/18at 01:40; Admin Dose 8 MG; Start 08/07/18 at 01:00; Stop 08/07/18 at 01:06; Status DC Famotidine (Pepcid Vial) 20 mg 1X ONCE IVP Last administered on 08/07/18at 01:40; Admin Dose 20 MG; Start 08/07/18 at 01:00; Stop 08/07/18 at 01:06; Stat us DC Magnesium Hydroxide (Milk Of Magnesia) 2,400 mg 1X ONCE PO Last administered on 08/07/18at 02:29; Admin Dose 2,400 MG; Start 08/07/18 at 01:00; Stop 08/07/18 at 01:06; Status DC Iohexol (Omnipaque 240 Mg/ml) 30 ml 1X ONCE PO Last administered on 08/07/18at 03:47; Admin Dose 30 ML; Start 08/07/18 at 02:30; Stop 08/07/18 at 02:31; Status DC Iohexol (Omnipaque 300 Mg/ml) 75 ml 1X ONCE IV Last administered on 08/07/18at 03:47; Admin Dose 75 ML; Start 08/07/18 at 02:30; Stop 08/07/18 at 02:31; Status DC Morphine Sulfate (Morphine 10mg Syringe) 10 mg 1X ONCE SQ Last administered on 08/07/18at 02:36; Admin Dose 10 MG; Start 08/07/18 at 02:30; Stop 08/07/18 at 02:31; Status DC Info (Do NOT chart on this entry -- for MONITORING) 1 each PRN DAILY PRN MC SEE COMMENTS; Start 08/07/18 at 02:30; Stop 08/07/18 at 05:45; Status DC Ondansetron HCl (Zofran) 8 mg 1X ONCE IV Last administered on 08/07/18at 04:24; Admin Dose 8 MG; Start 08/07/18 at 04:30; Stop 08/07/18 at 04:31; Status DC Lactated Ringer's 1,000 ml @ 1,000 mls/hr 1X ONCE IV Last administered on 08/07/18at 05:07; Admin Dose 1,000 MLS/HR; Start 08/07/18 at 05:15; Stop 08/07/18 at 05:45; Status DC Nicotine (Nicoderm Cq 21mg) 1 patch 1X ONCE TD Last administered on 08/07/18at 05:34; Admin Dose 1 PATCH; Start 08/07/18 at 05:30; Stop 08/07/18 at 05:31; Status DC Morphine Sulfate (Morphine 10mg Syringe) 10 mg 1X ONCE SQ Last administered on 08/07/18at 05:35; Admin Dose 10 MG; Start 08/07/18 at 05:30; Stop 08/07/18 at 05:31; Status DC Morphine Sulfate (Morphine 10mg Syringe) 10 mg 1X ONCE SQ ; Start 08/07/18 at 05:30; Stop 08/07/18 at 05:31; Status UNV Active Scripts Active Tramadol Hcl (Tramadol HCl) 50 Mg Tablet 50 Mg PO PRN Q6HRS PRN Meloxicam 7.5 Mg Tablet 7.5 Mg PO DAILY Naprosyn (Naproxen) 500 Mg Tablet 500 Mg PO BID Cyclobenzaprine Hcl 10 Mg Tablet 1 Tab PO TID Carpenter 5-325 Tablet (Hydrocodone Bit/Acetaminophen) 1 Each Tablet 1 Tab PO PRN Q6HRS PRN Doxycycline Hyclate 100 Mg Capsule 1 Cap PO BID Proair Hfa Inhaler (Albuterol Sulfate) 8.5 Gm Hfa.aer.ad 1 Puff INH PRN Q6HRS PRN 30 Days Doxycycline Hyclate 100 Mg Capsule 100 Mg PO BID 10 Days Naproxen 375 Mg Tablet 375 Mg PO BID Reported Ibuprofen 800 Mg Tablet 800 Mg PO 1X Dragon Disclaimer This chart was dictated in whole or in part using Voice Recognition software in a busy, high-work load, and often noisy Emergency Department environment. It may contain unintended and wholly unrecognized errors or omissions. NINI TRUJILLO MD Aug 07, 2018 00:42
[2018-08-07] MEDS ORDERED: IV RINGERS SOLUTION,LACTATED 1,000 ML IV SCH (01:00)
[2018-08-07] MEDS ORDERED: FAMOTIDINE 20 MG/2 ML VIAL IVP ONE (01:00)
[2018-08-07] MEDS ORDERED: MAGNESIUM HYDROXIDE 2,400 MG/30 ML ORAL.SUSP. PO ONE (01:00)
[2018-08-07] MEDS ORDERED: ONDANSETRON PF 4 MG/2 ML VIAL. IV ONE ×2 (01:00→04:30)
[2018-08-07 01:30] LABS: BACTERIA,URINE 0 /HPF (0-FEW); BILIRUBIN,URINE NEG (NEG); CLARITY,URINE CLEAR; COLOR,URINE YELLOW; GLUCOSE,URINE NEG (NEG); NITRITE,URINE NEG (NEG); RBC,URINE 0 /HPF (0-2); SQUAMOUS EPITHELIAL CELL,UR FEW /LPF; UROBILINOGEN,URINE 0.2 mg/dL (0.2 mg/dL); WBC,URINE OCC /HPF (0-4)
[2018-08-07 01:32] LABS: BARBITURATES NEG (NEG); BENZODIAZEPINES POS (NEG); CANNABINOIDS NEG (NEG); COCAINE NEG (NEG); METHADONE NEG (NEG); OPIATES NEG (NEG); PHENCYCLIDINE NEG (NEG)
[2018-08-07 01:36] LABS: AMPHETAMINE/METHAMPHETAMINE NEG (NEG)
[2018-08-07 01:55] LABS: BASO # 0.1 x10^3/uL (0.0-0.2); BASO % 1 % (0-3); EOS # 0.2 x10^3/uL (0.0-0.7); EOS % 2 % (0-3); HEMATOCRIT 37.3 % (36.0-47.0); HEMOGLOBIN 12.4 g/dL (12.0-15.5); LYMPH # 3.5 x10^3/uL (1.0-4.8); LYMPH % 38 % (24-48); MEAN CORPUSCULAR HEMOGLOBIN 30 pg (25-35); MEAN CORPUSCULAR HGB CONC 33 g/dL (31-37); MEAN CORPUSCULAR VOLUME 89 fL (79-100); MONO # 0.9 x10^3/uL (0.0-1.1); MONO % 10 % (0-9); NEUT # 4.6 x10^3uL (1.8-7.7); NEUT % 50 % (31-73); PLATELET COUNT 265 x10^3/uL (140-400); RED BLOOD COUNT 4.21 x10^6/uL (3.50-5.40); RED CELL DISTRIBUTION WIDTH 13.8 % (11.5-14.5); WHITE BLOOD COUNT 9.4 x10^3/uL (4.0-11.0)
[2018-08-07 02:09] LABS: ALBUMIN 3.5 g/dL (3.4-5.0); ALK PHOS 54 U/L (46-116); ALT (SGPT) 11 U/L (14-59); AMYLASE 72 U/L (25-115); ANION GAP 9 (6-14); AST (SGOT) 8 U/L (15-37); BLOOD UREA NITROGEN 13 mg/dL (7-20); CALCIUM 9.3 mg/dL (8.5-10.1); CARBON DIOXIDE 25 mmol/L (21-32); CHLORIDE 105 mmol/L (98-107); CREATININE 0.7 mg/dL (0.6-1.0); GFR 105.6; GLUCOSE 98 mg/dL (70-99); LIPASE 71 U/L (73-393); POTASSIUM 3.7 mmol/L (3.5-5.1); SODIUM 139 mmol/L (136-145); TOTAL BILIRUBIN 0.2 mg/dL (0.2-1.0); TOTAL PROTEIN 7.6 g/dL (6.4-8.2)
[2018-08-07 02:22] LABS: DIRECT BILIRUBIN < 0.1 mg/dL (0.0-0.2)
[2018-08-07] MEDS ORDERED: MORPHINE SULFATE 10 MG/ML SYRINGE. SQ ONE ×3 (02:30→05:30)
[2018-08-07] MEDS ORDERED: IOHEXOL 300 MG/ML 75 ML VIAL. IV ONE (02:30)
[2018-08-07] MEDS ORDERED: CONTRAST GIVEN MC PRN (02:30)
[2018-08-07] MEDS ORDERED: IOHEXOL 240 MG/ML 50ML VIAL. PO ONE (02:30)
--- NOTE | 2018-08-07 04:36 | RAD ---
INDICATION: Omni 300 75cc: Nausea, vomiting, abdomen pain, hx adhesions, prior hernia surg COMPARISON: None. TECHNIQUE: Axial CT images obtained through the abdomen and pelvis with contrast. One or more of the following individualized dose reduction techniques were utilized for this examination: 1. Automated exposure control; 2. Adjustment of the mA and/or kV according to patient size; 3. Use of iterative reconstruction technique. FINDINGS: Abdominal aorta is not aneurysmal. No intrahepatic bile duct dilation. No peripancreatic fluid collection. Spleen unremarkable. No left-sided hydronephrosis. Urinary bladder somewhat distended at time of exam. Fluid attenuation structure left adnexa measuring up to 62 x 30 mm. Suspected appendix measures up to 9 mm. No dilated loops of bowel to suggest obstruction. Suspected smaller cystic lesion right adnexa. Pars defects of L5. IMPRESSION: 1. Fluid attenuation structures in the left greater than right adnexa. Could be from ovarian cystic lesions but it could be helpful to obtain a follow-up pelvic ultrasound to further evaluate for internal complexity. 2. No hydronephrosis. 3. The appendix is dilated however a portion this measurement is secondary to air and debris within the lumen. There is no definite adjacent inflammatory changes at this time. Given the lack of adjacent inflammatory changes this does not fulfill all of the CT criteria for appendicitis given that some patients can have a dilated appendix at baseline. If there is high clinical concern for appendicitis and further imaging evaluation is desired further workup option includes obtaining a follow-up CT at a later time to ensure that there is not further increase in size the appendix or development of adjacent inflammatory changes that would be more diagnostic of appendicitis Electronically signed by: Roc Rodríguez MD (08/07/2018 4:33 AM) [id number]
[2018-08-07 05:11] VITALS: BP 130/83
[2018-08-07] MEDS ORDERED: IV RINGERS SOLUTION,LACTATED 1,000 ML IV ONE (05:15)
[2018-08-07] MEDS ORDERED: NICOTINE 21MG PATCH. TD ONE (05:30)
--- NOTE | 2018-08-07 08:49 | RAD ---
Acute abdominal series without comparison for nausea, vomiting, abdominal pain, history of adhesions, prior hernia surgery. FINDINGS: Lungs are clear. Cardiomediastinum is grossly unremarkable. No free air beneath the diaphragm. Scattered abdominal bowel gas in a nonobstructive pattern with stool seen to the vicinity of the rectum. No radiopaque foreign bodies. No pathologic calcifications. Suggestion of bilateral pars interarticularis defects at L5. This could be better evaluated with radiographs of lumbar spine including oblique views. IMPRESSION: 1. No acute cardiopulmonary abnormality. 2. Nonobstructive bowel gas pattern with a moderate amount of stool. 3. 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 This could be better evaluated with radiographs of the lumbar spine including oblique views. Electronically signed by: Felix Maldonado MD (08/07/2018 8:46 AM) [id number]
== END 2018-08-07 05:44 | disposition short-term general hospital (02) ==
LOC: ER 00:39
DX: R11.2 Nausea with vomiting, unspecified (principal); R10.84 Generalized abdominal pain; N83.201 Unspecified ovarian cyst, right side; J45.909 Unspecified asthma, uncomplicated; F17.210 Nicotine dependence, cigarettes, uncomplicated; Z98.890 Other specified postprocedural states
CPT/HCPCS: 36415; 74022; 74177; 80048; 80076; 80307; 81001; 81025; 82150; 83690; 84484; 84702; 85025; 85610; 85730; 96361; 96372; 96374; 96375; 96376; 99285; J2270; J2405; J3490; J7120; Q9966; Q9967

== ENCOUNTER 2018-08-18 08:11 | Emergency (ER) | payer SELFPAY ==
[~2018-08-18] VITALS: Ht 167.6 cm; Wt 102.2 kg
[2018-08-18] MEDS ORDERED: ACETAMINOPHEN 500 MG TABLET PO ONE ×2 (08:30→08:45)
[2018-08-18 08:33] VITALS: BP 116/67
[2018-08-18] MEDS ORDERED: DICL50TA4 PO (08:37)
--- NOTE | 2018-08-18 08:37 | PHYS DOC ---
Past History Past Medical History: Anxiety, Asthma Past Surgical History: Appendectomy, Tonsillectomy, Other Smoking: Cigarettes Alcohol Use: None Drug Use: None Adult General Chief Complaint Chief Complaint: WOUND CHECK [facility] HPI Patient is a 23-year-old female who presents with complaint of wound dehiscence and pain at wound site. Patient had undergone appendectomy little over a week ago and states that yesterday she noted that the wound had, open. She states that it had been bleeding last night. She states the pain is very bad and states that she is out of the Percocet that was prescribed for her. She denies any nausea, vomiting or fever. Review of Systems Review of Systems Constitutional: Denies fever or chills [] Respiratory: Denies cough or shortness of breath [] Cardiovascular: No additional information not addressed in HPI [] GI: Complains of abdominal wall pain without vomiting or diarrhea [] : Denies dysuria or hematuria [] Integument: Positive wound dehiscence[] Current Medications Current Medications Current Medications Medications (Trade) Dose Ordered Sig/Freedom Start Time Stop Time Status Last Admin Dose Admin Acetaminophen (Tylenol) 500 mg STK-MED ONCE 08/18/18 08:30 08/18/18 08:31 DC Allergies Allergies Allergies Coded Allergies Type Severity Reaction Last Updated Verified No Known Drug Allergies 03/25/14 No Physical Exam Physical Exam Constitutional: Well developed, well nourished, no acute distress, non-toxic appearance. [] Neck: Normal range of motion, no tenderness, supple, no stridor. [] Cardiovascular:Heart rate regular rhythm, no murmur [] Lungs & Thorax: Bilateral breath sounds clear to auscultation [] Abdomen: Bowel sounds normal, soft. Surgical wound and right mid abdomen shows small area of dehiscence extending into subcutaneous tissue no bleeding or other drainage present. No signs of infection. [] Skin: Warm, dry, no erythema, no rash. [] Current Patient Data Vital Signs Vital Signs Date Time Temp Pulse Resp B/P (MAP) Pulse Ox O2 Delivery O2 Flow Rate FiO2 08/18/18 08:11 97.9 86 16 100 Room Air EKG EKG [] Radiology/Procedures Radiology/Procedures [] Course & Med Decision Making Course & Med Decision Making Pertinent Labs and Imaging studies reviewed. (See chart for details) [] Dragon Disclaimer Dragon Disclaimer This electronic medical record was generated, in whole or in part, using a voice recognition dictation system. Departure Departure: Impression: Primary Impression: Wound dehiscence Disposition: 01 HOME, SELF-CARE Condition: STABLE Referrals: RODRI MACE (PCP) Patient Instructions: Wound Dehiscence Scripts Diclofenac Sodium (DICLOFENAC SODIUM) 50 Mg Tablet. 1 TAB PO BID PRN for PAIN, #20 TAB Prov: JUAQUIN PERAZA Jr. DO 08/18/18 JUAQUIN PERAZA Jr. DO August 18, 2018 08:37
== END 2018-08-18 08:49 | disposition home or self-care (01) ==
LOC: ER 08:11
DX: T81.31XA Disruption of external operation (surgical) wound, not elsewhere classified, initial encounter (principal); G89.18 Other acute postprocedural pain; R10.9 Unspecified abdominal pain; F41.9 Anxiety disorder, unspecified; J45.909 Unspecified asthma, uncomplicated; F17.210 Nicotine dependence, cigarettes, uncomplicated; Z90.89 Acquired absence of other organs
CPT/HCPCS: 12001; 99283; 99284

== ENCOUNTER 2018-10-20 00:50 | Emergency (ER) | payer SELFPAY ==
[~2018-10-20] VITALS: Ht 167.6 cm; Wt 104.0 kg
[~2018-10-20 00:50] MED LIST changes: +DICL50TA4 PO
--- NOTE | 2018-10-20 00:52 | ED.ADGEN ---
Past History Past Medical History: Anxiety, Asthma, Bipolar, Depression, UTI Past Surgical History: Appendectomy, Tonsillectomy, Other Smoking: Cigarettes Alcohol Use: None Drug Use: None Adult General Chief Complaint Chief Complaint ".. I was at birthday constitution party.. and had been drinking.. so.. I was not paying attention.. and I accidently took a double dose of BuSpar ... "..." I am feeling a little sleepy... It was no suicide thing.. it was just an accident.." HPI HPI Patient is a 23 year old female who presents with above hx and complaints she accidentally took an overdose dose or 2 times a regular depression med Buspar.. Patient states she she has no suicidal ideation and this was just an accidental overdose. Patient had been drinking tonight. Patient only complaint is that she's feeling sleepy. No recent travel. No significant ill contacts. No history of trauma. Normally follows with [facility] for health care. ( Note dosage of Buspar not consistent with normal dosage regimens) Review of Systems Review of Systems Constitutional: Denies fever or chills [] Eyes: Denies change in visual acuity, redness, or eye pain [] HENT: Denies nasal congestion or sore throat [] Respiratory: Denies cough or shortness of breath [] Cardiovascular: No additional information not addressed in HPI [] GI: Denies abdominal pain, nausea, vomiting, bloody stools or diarrhea [] : Denies dysuria or hematuria [] Musculoskeletal: Denies back pain or joint pain [] Integument: Denies rash or skin lesions [] Neurologic: Denies headache, focal weakness or sensory changes [] " Feels sleepy" Endocrine: Denies polyuria or polydipsia [] All other systems were reviewed and found to be within normal limits, except as documented in this note. Family History Family History Non-contributory Current Medications Current Medications Current Medications Medications (Trade) Dose Ordered Sig/Freedom Start Time Stop Time Status Last Admin Dose Admin Folic Acid (FOLIC ACID SYRINGE for ER) 5 mg STK-MED ONCE 10/20/18 01:18 10/20/18 01:19 DC Lactated Ringer's 1,000 ml @ 1,000 mls/hr Q1H 10/20/18 01:30 10/20/18 02:29 DC 10/20/18 01:22 1,000 MLS/HR Magnesium Hydroxide (Milk Of Magnesia) 2,400 mg STK-MED ONCE 10/20/18 01:21 10/20/18 01:22 DC Multivitamins/ Minerals (Infuvite Adult) 10 ml STK-MED ONCE 10/20/18 01:18 10/20/18 01:19 DC Multivitamins/ Minerals 10 ml/ Folic Acid 1 mg/ Thiamine HCl 100 mg/Lactated Ringer's 1,011.2 ml @ 1,011.2 mls/hr 1X ONCE 10/20/18 01:30 10/20/18 02:29 DC 10/20/18 01:22 1,011.2 MLS/HR Potassium Chloride (KCl Oral Soln) 40 meq 1X ONCE 10/20/18 03:00 10/20/18 03:00 DC 10/20/18 02:28 40 MEQ Sodium Bicarbonate (Sodium Bicarb Adult 8.4% Syr) 50 meq 1X ONCE 10/20/18 01:30 10/20/18 01:31 DC 10/20/18 01:22 50 MEQ Thiamine HCl (Thiamine Vial) 200 mg STK-MED ONCE 10/20/18 01:18 10/20/18 01:19 DC Trimethoprim/ Sulfamethoxazole (Bactrim Ds) 1 tab 1X ONCE 10/20/18 03:00 10/20/18 03:00 DC 10/20/18 02:28 1 TAB See Nursing for home meds. Allergies Allergies Allergies Coded Allergies Type Severity Reaction Last Updated Verified No Known Drug Allergies 03/25/14 No Physical Exam Physical Exam Constitutional: Well developed, well nourished, no acute distress, non-toxic appearance. [] HENT: Normocephalic, atraumatic, bilateral external ears normal, oropharynx moist, no oral exudates, nose normal. [] Eyes: PERRLA, EOMI, conjunctiva normal, no discharge. [] Neck: Normal range of motion, no tenderness, supple, no stridor. [] Cardiovascular:Heart rate regular rhythm, no murmur [] Lungs & Thorax: Bilateral breath sounds equal with scattered wheezes on auscultation [] Abdomen: Bowel sounds normal, soft, no tenderness, no masses, no pulsatile masses. [] Skin: Warm, dry, no erythema, no rash. [] Back: No tenderness, no CVA tenderness. [] Extremities: No tenderness, no cyanosis, no clubbing, ROM intact, no edema. [] Neurologic: Alert and oriented X 3, normal motor function, normal sensory function, no focal deficits noted. []DTR + 2 patella and brachial. Ambulatory without problem. Psychologic: Affect anxious., judgement normal, mood normal. [] Current Patient Data Vital Signs Vital Signs Date Time Temp Pulse Resp B/P (MAP) Pulse Ox O2 Delivery O2 Flow Rate FiO2 10/20/18 02:34 94 18 99 10/20/18 00:50 98.2 Lab Results Laboratory Tests Test 10/20/18 01:00 10/20/18 01:10 10/20/18 01:21 Urine Collection Type Unknown Urine Color Yellow Urine Clarity Hazy Urine pH 6.0 Urine Specific [place] 1.010 Urine Protein Neg (NEG-TRACE) Urine Glucose (UA) Neg mg/dL (NEG) Urine Ketones (Stick) Neg mg/dL (NEG) Urine Blood Trace (NEG) Urine Nitrite Neg (NEG) Urine Bilirubin Neg (NEG) Urine Urobilinogen Dipstick 0.2 mg/dL (0.2 mg/dL) Urine Leukocyte Esterase Mod (NEG) Urine RBC 1-2 /HPF (0-2) Urine WBC 20-40 /HPF (0-4) Urine Squamous Epithelial Cells Many /LPF Urine Bacteria Mod /HPF (0-FEW) Urine Opiates Screen Neg (NEG) Urine Methadone Screen Neg (NEG) Urine Barbiturates Neg (NEG) Urine Phencyclidine Screen Neg (NEG) Urine Amphetamine/Methamphetamine Neg (NEG) Urine Benzodiazepines Screen Neg (NEG) Urine Cocaine Screen Neg (NEG) Urine Cannabinoids Screen Neg (NEG) Urine Ethyl Alcohol Pos (NEG) White Blood Count 12.4 x10^3/uL (4.0-11.0) H Red Blood Count 4.18 x10^6/uL (3.50-5.40) Hemoglobin 11.6 g/dL (12.0-15.5) L Hematocrit 36.0 % (36.0-47.0) Mean Corpuscular Volume 86 fL (79-100) Mean Corpuscular Hemoglobin 28 pg (25-35) Mean Corpuscular Hemoglobin Concent 32 g/dL (31-37) Red Cell Distribution Width 15.6 % (11.5-14.5) H Platelet Count 221 x10^3/uL (140-400) Neutrophils (%) (Auto) 65 % (31-73) Lymphocytes (%) (Auto) 26 % (24-48) Monocytes (%) (Auto) 8 % (0-9) Eosinophils (%) (Auto) 1 % (0-3) Basophils (%) (Auto) 1 % (0-3) Neutrophils # (Auto) 8.1 x10^3uL (1.8-7.7) H Lymphocytes # (Auto) 3.2 x10^3/uL (1.0-4.8) Monocytes # (Auto) 0.9 x10^3/uL (0.0-1.1) Eosinophils # (Auto) 0.1 x10^3/uL (0.0-0.7) Basophils # (Auto) 0.1 x10^3/uL (0.0-0.2) Prothrombin Time 10.2 SEC (9.4-11.4) Prothrombin Time INR 1.0 (0.9-1.1) PTT 26 SEC (23-33) Sodium Level 140 mmol/L (136-145) Potassium Level 3.3 mmol/L (3.5-5.1) L Chloride Level 106 mmol/L (98-107) Carbon Dioxide Level 20 mmol/L (21-32) L Anion Gap 14 (6-14) Blood Urea Nitrogen 14 mg/dL (7-20) Creatinine 0.8 mg/dL (0.6-1.0) Estimated GFR (Cockcroft-Gault) 109.6 Glucose Level 88 mg/dL (70-99) Calcium Level 8.9 mg/dL (8.5-10.1) Magnesium Level 2.0 mg/dL (1.8-2.4) Total Bilirubin 0.1 mg/dL (0.2-1.0) L Direct Bilirubin < 0.1 mg/dL (0.0-0.2) Aspartate Amino Transferase (AST) 17 U/L (15-37) Alanine Aminotransferase (ALT) 16 U/L (14-59) Alkaline Phosphatase 53 U/L (46-116) Total Protein 7.8 g/dL (6.4-8.2) Albumin 3.8 g/dL (3.4-5.0) Salicylates Level 3.2 mg/dL (2.8-20.0) Salicylate Last Dose Date Unknown Salicylate Last Dose Time Unknown Acetaminophen Level < 2 mcg/mL (10-30) L Acetaminophen Last Dose Date Unknown Acetaminophen Last Dose Time Unknown Ethyl Alcohol Level 95 mg/dL (0-10) H POC Urine HCG, Qualitative hcg negative (Negative) EKG EKG Interpretation EKG shows a sinus rhythm at 93 beats per minute. No acute morphology appreciated.[] Radiology/Procedures Radiology/Procedures [] Course & Med Decision Making Course & Med Decision Making Pertinent Labs and Imaging studies reviewed. (See chart for details) Contacted Poison Control. 0230 hrs. Pt. demanding discharge. [] Final Impression Final Impression 1. Accident Over dosage[]- 2. Hypokalemia 3.3 3. Alcohol 95 4. Mild Leukocytosis 12.4 5. Anemia 11.6 6 UTI ? Dragon Disclaimer Dragon Disclaimer This electronic medical record was generated, in whole or in part, using a voice recognition dictation system. Discharge Summary Visit Information Final Diagnosis Problems Medical Problems: (1) Accidental drug overdose Status: Acute Brief Hospital Course Allergies Allergies Coded Allergies Type Severity Reaction Last Updated Verified No Known Drug Allergies 03/25/14 No Vital Signs Vital Signs Date Time Temp Pulse Resp B/P (MAP) Pulse Ox O2 Delivery O2 Flow Rate FiO2 10/20/18 02:34 94 18 99 10/20/18 00:50 98.2 Lab Results Laboratory Tests Test 10/20/18 01:00 10/20/18 01:10 10/20/18 01:21 Urine Collection Type Unknown Urine Color Yellow Urine Clarity Hazy Urine pH 6.0 Urine Specific [place] 1.010 Urine Protein Neg (NEG-TRACE) Urine Glucose (UA) Neg mg/dL (NEG) Urine Ketones (Stick) Neg mg/dL (NEG) Urine Blood Trace (NEG) Urine Nitrite Neg (NEG) Urine Bilirubin Neg (NEG) Urine Urobilinogen Dipstick 0.2 mg/dL (0.2 mg/dL) Urine Leukocyte Esterase Mod (NEG) Urine RBC 1-2 /HPF (0-2) Urine WBC 20-40 /HPF (0-4) Urine Squamous Epithelial Cells Many /LPF Urine Bacteria Mod /HPF (0-FEW) Urine Opiates Screen Neg (NEG) Urine Methadone Screen Neg (NEG) Urine Barbiturates Neg (NEG) Urine Phencyclidine Screen Neg (NEG) Urine Amphetamine/Methamphetamine Neg (NEG) Urine Benzodiazepines Screen Neg (NEG) Urine Cocaine Screen Neg (NEG) Urine Cannabinoids Screen Neg (NEG) Urine Ethyl Alcohol Pos (NEG) White Blood Count 12.4 x10^3/uL (4.0-11.0) Red Blood Count 4.18 x10^6/uL (3.50-5.40) Hemoglobin 11.6 g/dL (12.0-15.5) Hematocrit 36.0 % (36.0-47.0) Mean Corpuscular Volume 86 fL (79-100) Mean Corpuscular Hemoglobin 28 pg (25-35) Mean Corpuscular Hemoglobin Concent 32 g/dL (31-37) Red Cell Distribution Width 15.6 % (11.5-14.5) Platelet Count 221 x10^3/uL (140-400) Neutrophils (%) (Auto) 65 % (31-73) Lymphocytes (%) (Auto) 26 % (24-48) Monocytes (%) (Auto) 8 % (0-9) Eosinophils (%) (Auto) 1 % (0-3) Basophils (%) (Auto) 1 % (0-3) Neutrophils # (Auto) 8.1 x10^3uL (1.8-7.7) Lymphocytes # (Auto) 3.2 x10^3/uL (1.0-4.8) Monocytes # (Auto) 0.9 x10^3/uL (0.0-1.1) Eosinophils # (Auto) 0.1 x10^3/uL (0.0-0.7) Basophils # (Auto) 0.1 x10^3/uL (0.0-0.2) Prothrombin Time 10.2 SEC (9.4-11.4) Prothromb Time International Ratio 1.0 (0.9-1.1) Activated Partial Thromboplast Time 26 SEC (23-33) Sodium Level 140 mmol/L (136-145) Potassium Level 3.3 mmol/L (3.5-5.1) Chloride Level 106 mmol/L (98-107) Carbon Dioxide Level 20 mmol/L (21-32) Anion Gap 14 (6-14) Blood Urea Nitrogen 14 mg/dL (7-20) Creatinine 0.8 mg/dL (0.6-1.0) Estimated GFR (Cockcroft-Gault) 109.6 Glucose Level 88 mg/dL (70-99) Calcium Level 8.9 mg/dL (8.5-10.1) Magnesium Level 2.0 mg/dL (1.8-2.4) Total Bilirubin 0.1 mg/dL (0.2-1.0) Direct Bilirubin < 0.1 mg/dL (0.0-0.2) Aspartate Amino Transf (AST/SGOT) 17 U/L (15-37) Alanine Aminotransferase (ALT/SGPT) 16 U/L (14-59) Alkaline Phosphatase 53 U/L (46-116) Total Protein 7.8 g/dL (6.4-8.2) Albumin 3.8 g/dL (3.4-5.0) Salicylates Level 3.2 mg/dL (2.8-20.0) Salicylate Last Dose Date Unknown Salicylate Last Dose Time Unknown Acetaminophen Level < 2 mcg/mL (10-30) Acetaminophen Last Dose Date Unknown Acetaminophen Last Dose Time Unknown Ethyl Alcohol Level 95 mg/dL (0-10) Bedside Urine HCG, Qualitative hcg negative (Negative) Brief Hospital Course Ms. Cutler is a 23 old female who presented with hx accident ingestion of depression med 2 x her usual dosage. Discharge Information Condition at Discharge: Improved Disposition/Orders: D/C to Home Dischare Medications Current Medications Lactated Ringer's 1,000 ml @ 1,000 mls/hr Q1H IV Last administered on 10/20/18at 01:22; Admin Dose 1,000 MLS/HR; Start 10/20/18 at 01:30; Stop 10/20/18 at 02:29; Status DC Multivitamins/ Minerals 10 ml/ Folic Acid 1 mg/ Thiamine HCl 100 mg/Lactated Ringer's 1,011.2 ml @ 1,011.2 mls/hr 1X ONCE IV Last administered on 10/20/18at 01:22; Admin Dose 1,011.2 MLS/HR; Start 10/20/18 at 01:30; Stop 10/20/18 at 02:29; Status DC Sodium Bicarbonate (Sodium Bicarb Adult 8.4% Syr) 50 meq 1X ONCE IV Last administered on 10/20/18at 01:22; Admin Dose 50 MEQ; Start 10/20/18 at 01:30; Stop 10/20/18 at 01:31; Status DC Magnesium Hydroxide (Milk Of Magnesia) 2,400 mg 1X ONCE PO Last administered on 10/20/18at 01:22; Admin Dose 2,400 MG; Start 10/20/18 at 01:30; Stop 10/20/18 at 01:31; Status DC Thiamine HCl (Thiamine Vial) 200 mg STK-MED ONCE IV ; Start 10/20/18 at 01:18; Stop 10/20/18 at 01:19; Status DC Multivitamins/ Minerals (Infuvite Adult) 10 ml STK-MED ONCE IV ; Start 10/20/18 at 01:18; Stop 10/20/18 at 01:19; Status DC Folic Acid (FOLIC ACID SYRINGE for ER) 5 mg STK-MED ONCE IV ; Start 10/20/18 at 01:18; Stop 10/20/18 at 01:19; Status DC Magnesium Hydroxide (Milk Of Magnesia) 2,400 mg STK-MED ONCE .ROUTE ; Start 10/20/18 at 01:21; Stop 10/20/18 at 01:22; Status DC Trimethoprim/ Sulfamethoxazole (Bactrim Ds) 1 tab 1X ONCE PO Last administered on 10/20/18at 02:28; Admin Dose 1 TAB; Start 10/20/18 at 03:00; Stop 10/20/18 at 03:00; Status DC Potassium Chloride (KCl Oral Soln) 40 meq 1X ONCE PO Last administered on 10/20/18at 02:28; Admin Dose 40 MEQ; Start 10/20/18 at 03:00; Stop 10/20/18 at 03:00; Status DC Active Scripts Active Bactrim Ds Tablet (Sulfamethoxazole/Trimethoprim) 1 Each Tablet 1 Tab PO BID Diclofenac Sodium 50 Mg Tablet.dr 1 Tab PO BID PRN Tramadol Hcl (Tramadol HCl) 50 Mg Tablet 50 Mg PO PRN Q6HRS PRN Meloxicam 7.5 Mg Tablet 7.5 Mg PO DAILY Naprosyn (Naproxen) 500 Mg Tablet 500 Mg PO BID Cyclobenzaprine Hcl 10 Mg Tablet 1 Tab PO TID [place] 5-325 Tablet (Hydrocodone Bit/Acetaminophen) 1 Each Tablet 1 Tab PO PRN Q6HRS PRN Doxycycline Hyclate 100 Mg Capsule 1 Cap PO BID Proair Hfa Inhaler (Albuterol Sulfate) 8.5 Gm Hfa.aer.ad 1 Puff INH PRN Q6HRS PRN 30 Days Doxycycline Hyclate 100 Mg Capsule 100 Mg PO BID 10 Days Naproxen 375 Mg Tablet 375 Mg PO BID Reported Ibuprofen 800 Mg Tablet 800 Mg PO 1X Dragon Disclaimer This chart was dictated in whole or in part using Voice Recognition software in a busy, high-work load, and often noisy Emergency Department environment. It may contain unintended and wholly unrecognized errors or omissions. NINI TRUJILLO MD Oct 20, 2018 00:51
[2018-10-20] MEDS ORDERED: FOLIC ACID 5 MG/ML SYRINGE for ER IV ONE (01:18)
[2018-10-20] MEDS ORDERED: MVI, ADULT NO.4 WITH VIT K 10 ML VIAL IV ONE (01:18)
[2018-10-20] MEDS ORDERED: THIAMINE 200 MG/2 ML VIAL. IV ONE (01:18)
[2018-10-20] MEDS ORDERED: MAGNESIUM HYDROXIDE 2,400 MG/30 ML ORAL.SUSP. ONE (01:21)
[2018-10-20] MEDS ORDERED: MVI, ADULT NO.4 WITH VIT K 10 ML, FOLIC ACID SYRINGE for ER 1 MG, THIAMINE INJ 100 MG i... IV ONE ×4 (01:30)
[2018-10-20] MEDS ORDERED: IV RINGERS SOLUTION,LACTATED 1,000 ML IV SCH (01:30)
[2018-10-20] MEDS ORDERED: MAGNESIUM HYDROXIDE 2,400 MG/30 ML ORAL.SUSP. PO ONE (01:30)
[2018-10-20] MEDS ORDERED: SODIUM BICARB ADULT 8.4% 50 MEQ/50 ML DISP.SYRIN. IV ONE (01:30)
[2018-10-20 01:36] LABS: BARBITURATES NEG (NEG); BENZODIAZEPINES NEG (NEG); CANNABINOIDS NEG (NEG); COCAINE NEG (NEG); METHADONE NEG (NEG); OPIATES NEG (NEG); PHENCYCLIDINE NEG (NEG)
[2018-10-20 01:41] LABS: BASO # 0.1 x10^3/uL (0.0-0.2); BASO % 1 % (0-3); EOS # 0.1 x10^3/uL (0.0-0.7); EOS % 1 % (0-3); HEMOGLOBIN 11.6 g/dL (12.0-15.5); LYMPH # 3.2 x10^3/uL (1.0-4.8); LYMPH % 26 % (24-48); MEAN CORPUSCULAR HEMOGLOBIN 28 pg (25-35); MEAN CORPUSCULAR HGB CONC 32 g/dL (31-37); MEAN CORPUSCULAR VOLUME 86 fL (79-100); MONO # 0.9 x10^3/uL (0.0-1.1); MONO % 8 % (0-9); NEUT # 8.1 x10^3uL (1.8-7.7); NEUT % 65 % (31-73); PLATELET COUNT 221 x10^3/uL (140-400); RED BLOOD COUNT 4.18 x10^6/uL (3.50-5.40); RED CELL DISTRIBUTION WIDTH 15.6 % (11.5-14.5); WHITE BLOOD COUNT 12.4 x10^3/uL (4.0-11.0)
[2018-10-20 01:43] LABS: ACETAMIN < 2 mcg/mL (10-30); ALBUMIN 3.8 g/dL (3.4-5.0); ALK PHOS 53 U/L (46-116); ALT (SGPT) 16 U/L (14-59); ANION GAP 14 (6-14); AST (SGOT) 17 U/L (15-37); BLOOD UREA NITROGEN 14 mg/dL (7-20); CALCIUM 8.9 mg/dL (8.5-10.1); CARBON DIOXIDE 20 mmol/L (21-32); CHLORIDE 106 mmol/L (98-107); CREATININE 0.8 mg/dL (0.6-1.0); DIRECT BILIRUBIN < 0.1 mg/dL (0.0-0.2); GFR 109.6; GLUCOSE 88 mg/dL (70-99); POTASSIUM 3.3 mmol/L (3.5-5.1); SALIC 3.2 mg/dL (2.8-20.0); SODIUM 140 mmol/L (136-145); TOTAL BILIRUBIN 0.1 mg/dL (0.2-1.0); TOTAL PROTEIN 7.8 g/dL (6.4-8.2)
[2018-10-20 01:46] LABS: AMPHETAMINE/METHAMPHETAMINE NEG (NEG)
[2018-10-20 01:56] LABS: BILIRUBIN,URINE NEG (NEG); CLARITY,URINE HAZY; COLOR,URINE YELLOW; GLUCOSE,URINE NEG (NEG); NITRITE,URINE NEG (NEG); UROBILINOGEN,URINE 0.2 mg/dL (0.2 mg/dL)
[2018-10-20 01:57] LABS: BACTERIA,URINE MOD /HPF (0-FEW); SQUAMOUS EPITHELIAL CELL,UR MANY /LPF; WBC,URINE 20-40 /HPF (0-4)
[2018-10-20] MEDS ORDERED: SULF1TAB24 PO (02:23)
[2018-10-20 02:34] VITALS: BP 163/99
[2018-10-20] MEDS ORDERED: POTASSIUM CHLORIDE 20 MEQ/15 ML ORAL LIQUID. PO ONE (03:00)
[2018-10-20] MEDS ORDERED: SMZ/TMP 800/160MG TABLET. PO ONE (03:00)
== END 2018-10-20 02:35 | disposition home or self-care (01) ==
LOC: ER 00:50
DX: T43.591A Poisoning by other antipsychotics and neuroleptics, accidental (unintentional), initial encounter (principal); E87.6 Hypokalemia; D72.829 Elevated white blood cell count, unspecified; D64.9 Anemia, unspecified; F41.9 Anxiety disorder, unspecified; J45.909 Unspecified asthma, uncomplicated; F31.9 Bipolar disorder, unspecified; F17.210 Nicotine dependence, cigarettes, uncomplicated; Z87.440 Personal history of urinary (tract) infections; Z79.899 Other long term (current) drug therapy; Y92.89 Other specified places as the place of occurrence of the external cause
CPT/HCPCS: 36415; 80048; 80076; 80307; 80329; 81001; 81025; 83735; 84443; 85025; 85610; 85730; 87086; 93005; 96365; 96375; 99285; G0480; J7120; 82003

== ENCOUNTER 2018-12-19 10:27 | Emergency (ER) | payer SELFPAY ==
[~2018-12-19] VITALS: Ht 167.6 cm; Wt 101.6 kg
[~2018-12-19 10:27] MED LIST changes: +SULF1TAB24 PO
--- NOTE | 2018-12-19 11:07 | PHYS DOC ---
Past History Past Medical History: Anxiety, Asthma, Bipolar, Depression, UTI Past Surgical History: Appendectomy, Tonsillectomy, Other Smoking: Cigarettes Alcohol Use: None Drug Use: None Adult General Chief Complaint Chief Complaint: SHORTNESS OF BREATH HPI HPI 23-year-old female presents with cough. The patient has had cough and congestion for the past 3 or 4 days. She has a history of asthma. She has been using her albuterol inhaler multiple times daily. She is still having quite a bit of coughing at night and it is keeping her awake. She denies fever or chills. Review of Systems Review of Systems Constitutional: Denies fever or chills [] Eyes: Denies change in visual acuity, redness, or eye pain [] HENT: Nasal congestion. Denies sore throat [] Respiratory: Cough with shortness of breath [] Cardiovascular: No additional information not addressed in HPI [] GI: Denies abdominal pain, nausea, vomiting, bloody stools or diarrhea [] : Denies dysuria or hematuria [] Musculoskeletal: Denies back pain or joint pain [] Integument: Denies rash or skin lesions [] Neurologic: Denies headache, focal weakness or sensory changes [] Endocrine: Denies polyuria or polydipsia [] All other systems were reviewed and found to be within normal limits, except as documented in this note. Allergies Allergies Allergies Coded Allergies Type Severity Reaction Last Updated Verified No Known Drug Allergies 03/25/14 No Physical Exam Physical Exam Constitutional: Well developed, well nourished, no acute distress, non-toxic appearance. [] HENT: Normocephalic, atraumatic, bilateral external ears normal, oropharynx moist, no oral exudates, nose normal. [] Eyes: PERRLA, EOMI, conjunctiva normal, no discharge. [] Neck: Normal range of motion, no tenderness, supple, no stridor. [] Cardiovascular:Heart rate regular rhythm, no murmur [] Lungs & Thorax: Bilateral breath sounds clear to auscultation [] Abdomen: Bowel sounds normal, soft, no tenderness, no masses, no pulsatile masses. [] Skin: Warm, dry, no erythema, no rash. [] Back: No tenderness, no CVA tenderness. [] Extremities: No tenderness, no cyanosis, no clubbing, ROM intact, no edema. [] Neurologic: Alert and oriented X 3, normal motor function, normal sensory function, no focal deficits noted. [] Psychologic: Affect normal, judgement normal, mood normal. [] Current Patient Data Vital Signs Vital Signs Date Time Temp Pulse Resp B/P (MAP) Pulse Ox O2 Delivery O2 Flow Rate FiO2 12/19/18 10:44 98.6 89 24 99 Room Air EKG EKG [] Radiology/Procedures Radiology/Procedures [] Impressions: Primary interpretation: Chest x-ray, no acute cardiopulmonary findings. Course & Med Decision Making Course & Med Decision Making Pertinent Labs and Imaging studies reviewed. (See chart for details) The patient's labs are unremarkable except for some mild anemia. Her chest x-ray is negative for acute findings. I will treat the patient with prednisone 40 mg for 3 days to see if this helps. I will also give her a prescription for Tessalon Perles. She is stable for discharge at this time. [] Dragon Disclaimer Dragon Disclaimer This electronic medical record was generated, in whole or in part, using a voice recognition dictation system. Departure Departure: Impression: Primary Impression: Cough Disposition: 01 HOME, SELF-CARE Condition: STABLE Referrals: RODRI MACE (PCP) Patient Instructions: Cough, Adult, [id number] Scripts Benzonatate (TESSALON PERLE) 100 Mg Capsule 1 CAP PO TID PRN for COUGH, #30 CAP Prov: SAWYER THORNE DO 12/19/18 Prednisone (PREDNISONE) 10 Mg Tablet 40 MG PO DAILY for cough for 3 Days, #12 TAB Prov: SAWYER THORNE DO 12/19/18 SAWYER THORNE DO Dec 19, 2018 11:07
[2018-12-19] MEDS ORDERED: IPRATRPIUM/ALBUTEROL 0.5/2.5MG 3 ML NEBU. NEB ONE (11:15)
[2018-12-19 12:23] LABS: BASO % 1 % (0-3); EOS # 0.2 x10^3/uL (0.0-0.7); EOS % 2 % (0-3); HEMATOCRIT 34.5 % (36.0-47.0); HEMOGLOBIN 11.2 g/dL (12.0-15.5); LYMPH # 2.2 x10^3/uL (1.0-4.8); LYMPH % 23 % (24-48); MEAN CORPUSCULAR HEMOGLOBIN 28 pg (25-35); MEAN CORPUSCULAR HGB CONC 33 g/dL (31-37); MEAN CORPUSCULAR VOLUME 87 fL (79-100); MONO # 0.8 x10^3/uL (0.0-1.1); MONO % 8 % (0-9); NEUT # 6.6 x10^3uL (1.8-7.7); NEUT % 67 % (31-73); PLATELET COUNT 229 x10^3/uL (140-400); RED BLOOD COUNT 3.98 x10^6/uL (3.50-5.40); RED CELL DISTRIBUTION WIDTH 16.5 % (11.5-14.5); WHITE BLOOD COUNT 9.8 x10^3/uL (4.0-11.0)
[2018-12-19 12:41] LABS: ALBUMIN 3.7 g/dL (3.4-5.0); ALBUMIN/GLOBULIN RATIO 0.9 (1.0-1.7); CALCIUM 8.8 mg/dL (8.5-10.1); CREATININE 0.9 mg/dL (0.6-1.0); GFR 95.6; POTASSIUM 3.1 mmol/L (3.5-5.1); TOTAL BILIRUBIN 0.2 mg/dL (0.2-1.0); TOTAL PROTEIN 7.7 g/dL (6.4-8.2)
[2018-12-19] MEDS ORDERED: PRED-220 PO (13:15)
[2018-12-19] MEDS ORDERED: BENZ100C PO (13:15)
[2018-12-19] MEDS ORDERED: PROM118S9 PO (13:21)
[2018-12-19 13:29] VITALS: BP 116/67
--- NOTE | 2018-12-19 13:48 | RAD ---
EXAM: PA and Lateral Views of the Chest DATE: 12/19/2018 11:38 AM INDICATION: Shortness of breath, cough COMPARISON: No Prior FINDINGS: The heart is not enlarged. Mediastinal and hilar contours are normal. No focal parenchymal airspace opacity. No pleural effusion or pneumothorax. IMPRESSION: 1. No radiographic evidence for acute cardiopulmonary process. Electronically signed by: Tolu Patterson MD (12/19/2018 1:45 PM) [facility]
== END 2018-12-19 13:29 | disposition home or self-care (01) ==
LOC: ER 10:27
DX: R05 Cough (principal); R09.81 Nasal congestion; R06.02 Shortness of breath; J45.909 Unspecified asthma, uncomplicated; F17.210 Nicotine dependence, cigarettes, uncomplicated; Z87.440 Personal history of urinary (tract) infections; Z90.89 Acquired absence of other organs
CPT/HCPCS: 36415; 71046; 80053; 85025; 94640; 99285; J7620

== ENCOUNTER 2019-01-25 12:51 | Emergency (ER) | payer SELFPAY ==
[~2019-01-25 12:51] MED LIST changes: +BENZ100C PO; +PRED-220 PO; +PROM118S9 PO
[2019-01-25] MEDS ORDERED: OXYC1TAB15 PO (13:26)
--- NOTE | 2019-01-25 13:26 | PHYS DOC ---
Past History Past Medical History: Anxiety, Asthma, Bipolar, Depression, UTI Past Surgical History: Appendectomy, Tonsillectomy, Other Smoking: Cigarettes Alcohol Use: None Drug Use: None Adult General Chief Complaint Chief Complaint: HAND PROBLEM HPI HPI 23-year-old female presents with report of pain to left hand at base of some after accidentally shutting her hand in the car door at 0900 this morning. Reports some subsequent swelling and bruising. Denies numbness or tingling. Reports pain significant and therefore decided to present to the ER for further evaluation. Denies . Review of Systems Review of Systems Constitutional: Denies fever or chills Eyes: Denies redness or eye pain HENT: Denies nasal congestion or sore throat Respiratory: Denies cough or shortness of breath Cardiovascular: Denies chest pain or palpitations GI: Denies abdominal pain, nausea, or vomiting : Denies dysuria or hematuria Musculoskeletal: Denies back pain; reports left hand pain Integument: Reports bruising and swelling to left hand denies laceration Neurologic: Denies headache, focal weakness or sensory changes Complete systems were reviewed and found to be within normal limits, except as documented in this note. Current Medications Current Medications Current Medications Medications (Trade) Dose Ordered Sig/Freedom Start Time Stop Time Status Last Admin Dose Admin Oxycodone/ Acetaminophen (Percocet 5/325) 1 tab 1X ONCE 01/25/19 13:30 01/25/19 13:31 Allergies Allergies Allergies Coded Allergies Type Severity Reaction Last Updated Verified No Known Drug Allergies 03/25/14 No Physical Exam Physical Exam Constitutional: Well developed, well nourished, no acute distress, non-toxic appearance HENT: Normocephalic, atraumatic Eyes: Conjunctiva normal, no discharge Neck: Normal range of motion, supple Cardiovascular: Left radial pulse +2, CR < 2 sec Lungs & Thorax: No respiratory distress Skin: Warm, dry, mild ecchymosis noted to palmar aspect of left 1st metacarpal Extremities: Mild tenderness on palpation of left 1st metacarpal, ROM intact, mild swelling to 1st metacarpal Neurologic: Alert and oriented X 3, no focal deficits noted Psychologic: Affect normal, judgement normal EKG EKG [] Radiology/Procedures Radiology/Procedures PROCEDURE: HAND LEFT 3V HAND LEFT 3V History: Pain in first metacarpal Comparison: None FINDINGS: 3 views of the left hand are submitted. No acute fracture or dislocation is identified. Joint spaces are maintained. Impression: 1. No acute osseous abnormality is identified by radiographs. Electronically signed by: Osito Light MD (01/25/2019 1:23 PM) [facility] Course & Med Decision Making Course & Med Decision Making Pertinent Imaging studies reviewed. (See chart for details) Patient presents with crush injury to left hand. Focal tenderness along left first metacarpal. Ice applied. Pain addressed. X-ray without acute fracture or dislocation. Corey wrap applied. Patient stable for discharge with outpatient follow-up with PCP/orthopedics. Orthopedic referral provided. Discussed findings and plan with patient, who acknowledges understanding and agreement. Dragon Disclaimer Dragon Disclaimer This electronic medical record was generated, in whole or in part, using a voice recognition dictation system. Splinting Splinting : Location: Left hand Pre-Made Type: COREY bandage Pre-Proc Neuro Vasc Exam: normal Post-Proc Neuro Vasc Exam: normal, unchanged from pre-exam Departure Departure: Impression: Primary Impression: Hand contusion Disposition: 01 HOME, SELF-CARE Condition: STABLE Referrals: RODRI MACE (PCP) DIALLO ORTEGA MD Patient Instructions: Hand Contusion, [id number] Scripts Oxycodone Hcl/Acetaminophen (PERCOCET 5-325 MG TABLET ) 1 Each Tablet 0.5-1 TAB PO Q6HRS PRN for MODERATE PAIN 4-6 MDD 2 Tablet(s), #10 TAB 0 Refills Prov: JANA POWERS DO 01/25/19 Problem Qualifiers Primary Impression: Hand contusion Encounter type: initial encounter Laterality: left Qualified Codes: S60.222A - Contusion of left hand, initial encounter JANA POWERS DO Jan 25, 2019 13:26
[2019-01-25] MEDS ORDERED: oxyCODONE/APAP 5/325 1 TAB TABLET PO ONE (13:30)
[2019-01-25 13:42] VITALS: BP 111/69
== END 2019-01-25 13:33 | disposition home or self-care (01) ==
LOC: ER 12:51
DX: S60.222A Contusion of left hand, initial encounter (principal); J45.909 Unspecified asthma, uncomplicated; F17.210 Nicotine dependence, cigarettes, uncomplicated; Z87.440 Personal history of urinary (tract) infections; W23.0XXA Caught, crushed, jammed, or pinched between moving objects, initial encounter; Y93.89 Activity, other specified; Y92.89 Other specified places as the place of occurrence of the external cause; Y99.8 Other external cause status
CPT/HCPCS: 73130; 99284

== ENCOUNTER 2019-03-31 16:11 | Emergency (ER) | payer OTHER ==
[~2019-03-31] VITALS: Ht 167.6 cm; Wt 103.5 kg
[~2019-03-31 16:11] MED LIST changes: +OXYC1TAB15 PO
--- NOTE | 2019-03-31 17:11 | RAD ---
RIGHT HAND, VIEWS 3 RIGHT WRIST, 3 VIEWS Indication: Pain Hand Findings: Views of the hand demonstrate normal alignment. No fractures or osseous lesions are present. No joint space narrowing. Mineralization is normal. There are no erosive changes. There is soft tissue swelling of the dorsal hand. Wrist findings: There is no acute fracture or dislocation. No osseous lesion is identified. The bony articulations are normal. The mineralization is normal. There is no soft tissue swelling or radiopaque foreign body IMPRESSION: No acute fracture or dislocation. Electronically signed by: Charly Agrawal MD (03/31/2019 5:08 PM) [facility]
[2019-03-31] MEDS ORDERED: ACETAMINOPHEN 500 MG TABLET PO ONE ×2 (17:18→17:30)
[2019-03-31] MEDS ORDERED: TRAM50TA PO (17:26)
--- NOTE | 2019-03-31 17:26 | PHYS DOC ---
Past History Past Medical History: Asthma Past Surgical History: Appendectomy, Tonsillectomy, Other Additional Past Surgical Histo: abd hernia repair Smoking: Cigarettes Alcohol Use: None Drug Use: None Adult General Chief Complaint Chief Complaint: HAND PROBLEM HPI HPI Patient is a[23-year-old right-handed who presents with a isolated right hand pain tenderness swelling/trauma to slipping on ice and falling with an outstretched hand. Injury occurred earlier this morning. Patient with tenderness swelling as well as right hand. Pain with palpation and movement. No wrist pain tenderness pain with range of motion. [] Review of Systems Review of Systems Review symptoms as per history of present illness. All other review symptoms are negative.] All other systems were reviewed and found to be within normal limits, except as documented in this note. Current Medications Current Medications Current Medications Medications (Trade) Dose Ordered Sig/Freedom Start Time Stop Time Status Last Admin Dose Admin Acetaminophen (Tylenol) 500 mg STK-MED ONCE 03/31/19 17:18 03/31/19 17:19 DC Ondansetron HCl (Zofran Odt) 4 mg 1X ONCE 03/31/19 17:30 03/31/19 17:31 UNV Allergies Allergies Allergies Coded Allergies Type Severity Reaction Last Updated Verified No Known Drug Allergies 03/25/14 No Physical Exam Physical Exam Constitutional: Well developed, well nourished, no acute distress, non-toxic appearance. [] HENT: Normocephalic, atraumatic, bilateral external ears normal, oropharynx moist, no oral exudates, nose normal. [] Eyes: PERRLA, EOMI, conjunctiva normal, no discharge. [] Extremities: Right Hand, tenderness swelling bruising of dorsum right hand, no obvious deformity, right wrist, no bony tenderness, pain on range of motion. [] Neurologic: Alert and oriented X 3, normal motor function, normal sensory function, no focal deficits noted. [] Psychologic: Affect normal, judgement normal, mood normal. [] Current Patient Data Vital Signs Vital Signs Date Time Temp Pulse Resp B/P (MAP) Pulse Ox O2 Delivery O2 Flow Rate FiO2 03/31/19 16:15 98.9 88 18 98 Room Air EKG EKG [] Radiology/Procedures Radiology/Procedures [Right hand/wrist x-ray: No obvious displaced fracture.] Course & Med Decision Making Course & Med Decision Making Pertinent Labs and Imaging studies reviewed. (See chart for details) [Patient placed in compression wrap given Tylenol. Recommendations are supportive care with PCP follow-up as needed.] Dragon Disclaimer Dragon Disclaimer This electronic medical record was generated, in whole or in part, using a voice recognition dictation system. Departure Departure: Impression: Primary Impression: Contusion of right hand Disposition: HOME, SELF-CARE Condition: STABLE Referrals: RODRI MACE (PCP) Patient Instructions: Contusion, [id number] Additional Instructions: Wear compression wrap, apply ice and take pain and tramadol as needed for additional relief. Follow up with PCP in 2-3 days if symptoms continue. Scripts Tramadol Hcl (TRAMADOL HCL) 50 Mg Tablet 50 MG PO PRN Q6HRS PRN for PAIN, #10 TAB Prov: SAWYER HARMAN DO 03/31/19 SAWYER HARMAN DO Mar 31, 2019 17:26
[2019-03-31] MEDS ORDERED: ONDANSETRON ODT 4 MG TAB.RAPDIS PO ONE (17:30)
[2019-03-31 17:46] VITALS: BP 104/57
== END 2019-03-31 17:30 | disposition home or self-care (01) ==
LOC: ER 16:11
DX: S60.221A Contusion of right hand, initial encounter (principal); J45.909 Unspecified asthma, uncomplicated; F17.210 Nicotine dependence, cigarettes, uncomplicated; Z90.49 Acquired absence of other specified parts of digestive tract; W01.0XXA Fall on same level from slipping, tripping and stumbling without subsequent striking against object, initial encounter; Y93.89 Activity, other specified; Y92.89 Other specified places as the place of occurrence of the external cause; Y99.8 Other external cause status
CPT/HCPCS: 73110; 73130; 99284; Q0162

== ENCOUNTER 2019-04-02 18:13 | Emergency (ER) | payer OTHER ==
[~2019-04-02] VITALS: Ht 167.6 cm; Wt 103.5 kg
[2019-04-02 18:25] VITALS: BP 142/61
[2019-04-02] MEDS ORDERED: HYDROcodone/APAP 5/325MG 1 TAB TABLET PO ONE (18:45)
[2019-04-02] MEDS ORDERED: HYDR-3165 PO (18:50)
--- NOTE | 2019-04-02 18:50 | PHYS DOC ---
Past History Past Medical History: Asthma Past Surgical History: Appendectomy, Tonsillectomy, Other Additional Past Surgical Histo: abd hernia repair Smoking: Cigarettes Alcohol Use: None Drug Use: None Adult General Chief Complaint Chief Complaint: HAND PROBLEM HPI HPI 23-year-old female presents for reevaluation of continued swelling and pain to dorsum of right hand. Patient was seen 2 days ago for same after mechanical slip striking the back of her hand. [facility] review noted patient reports seems x- rays of both hand and wrist without acute fracture or dislocation. Patient did receive an Corey bandage. Reports it is painful to wear. Denies additional trauma. Reports his been taking tramadol without improvement. Denies . Review of Systems Review of Systems Constitutional: Denies fever or chills Eyes: Denies redness or eye pain HENT: Denies nasal congestion or sore throat Respiratory: Denies cough or shortness of breath Cardiovascular: Denies chest pain or palpitations GI: Denies abdominal pain, nausea, or vomiting : Denies dysuria or hematuria Musculoskeletal: Denies back pain; reports right hand pain Integument: Reports bruising and swelling Neurologic: Denies headache, focal weakness or sensory changes Complete systems were reviewed and found to be within normal limits, except as documented in this note. Current Medications Current Medications Current Medications Medications (Trade) Dose Ordered Sig/Freedom Start Time Stop Time Status Last Admin Dose Admin Acetaminophen/ Hydrocodone Bitart (Lortab 5/325) 1 tab 1X ONCE 04/02/19 18:45 04/02/19 18:46 DC Allergies Allergies Allergies Coded Allergies Type Severity Reaction Last Updated Verified No Known Drug Allergies 03/25/14 No Physical Exam Physical Exam Constitutional: Well developed, well nourished, no acute distress, non-toxic appearance HENT: Normocephalic, atraumatic, oropharynx moist Eyes: Conjunctiva normal, no discharge Neck: Normal range of motion, no tenderness, supple Cardiovascular: Right radial pulse +2, CR < 2 sec Lungs & Thorax: No respiratory distress, atraumatic Skin: Warm, dry, no erythema, ecchymosis to dorsum of right hand Extremities: Pain to palpation of dorsum of right hand, full ROM of hand, no deformity Neurologic: Alert and oriented X 3, no focal deficits noted Psychologic: Affect normal, judgement normal Current Patient Data Vital Signs Vital Signs Date Time Temp Pulse Resp B/P (MAP) Pulse Ox O2 Delivery O2 Flow Rate FiO2 04/02/19 18:25 98.2 98 16 99 Room Air EKG EKG [] Radiology/Procedures Radiology/Procedures [] Course & Med Decision Making Course & Med Decision Making Patient presents with continued right hand pain and swelling after mechanical slip and fall 2 days ago. Patient had previously been seen in the ER and underwent x-ray imaging of both hand and wrist without acute fracture or dislocation. Patient was also prescribed tramadol. Patient was also placed in an Corey wrap previously. Patient reports unable to wear Corey wrap due to discomfort. Will hold repeat imaging at this time. Wrist splint applied. Ice given. Pain addressed. Patient stable for discharge with outpatient follow-up with PCP. Discussed findings and plan with patient, who acknowledges understanding and agreement. Dragon Disclaimer Dragon Disclaimer This electronic medical record was generated, in whole or in part, using a voice recognition dictation system. Splinting Splinting : Location: right hand Pre-Made Type: [place] wrist splint Pre-Proc Neuro Vasc Exam: normal Post-Proc Neuro Vasc Exam: normal, unchanged from pre-exam Departure Departure: Impression: Primary Impression: Hand contusion Disposition: HOME, SELF-CARE Condition: STABLE Referrals: RODRI MACE (PCP) Patient Instructions: Hand Contusion, [id number], Splint Care, [id number] Scripts Hydrocodone Bit/Acetaminophen (NORCO 5-325 TABLET) 1 Each Tablet 0.5-1 TAB PO Q6HRS PRN for PAIN, #6 TAB Prov: JANA POWERS DO 04/02/19 Problem Qualifiers Primary Impression: Hand contusion Encounter type: initial encounter Laterality: right Qualified Codes: S60.221A - Contusion of right hand, initial encounter JANA POWERS DO Apr 02, 2019 18:50
== END 2019-04-02 18:57 | disposition home or self-care (01) ==
LOC: ER 18:13
DX: S60.221D Contusion of right hand, subsequent encounter (principal); J45.909 Unspecified asthma, uncomplicated; F17.210 Nicotine dependence, cigarettes, uncomplicated; W01.198D Fall on same level from slipping, tripping and stumbling with subsequent striking against other object, subsequent encounter
CPT/HCPCS: 29125; 99283

== ENCOUNTER 2019-04-16 19:44 | Emergency (ER) | payer OTHER ==
[~2019-04-16] VITALS: Ht 167.6 cm; Wt 99.8 kg
--- NOTE | 2019-04-16 20:08 | PHYS DOC ---
Past History Past Medical History: Asthma, Gallstones, GERD Past Surgical History: Appendectomy, Tonsillectomy, Other Additional Past Surgical Histo: abd hernia repair Smoking: Cigarettes Alcohol Use: None Drug Use: None Adult General Chief Complaint Chief Complaint: FLANK PAIN... " Its.. my gall bladder.. same place.. I did eat a lot of greasey foods the last couple days.. youve seen me before for this... My aunt, and my mom, might grandmother they will have a gallbladder out... " HPI HPI Patient is a 23 year old female who presents with above hx and complaints nausea, vomiting, right upper quadrant and flank after intake of some greasy meals. Patient has had previous history of biliary colic. Has had previous previous appendectomy. No history of trauma. No history of bad food but high fat meals. No recent travel. Patient immunosuppression. Patient does continue to smoke. She denies any tarry stools. No history of renal stones. Pt. follow with [facility]. Review of Systems Review of Systems Constitutional: Denies fever or chills [] Eyes: Denies change in visual acuity, redness, or eye pain [] HENT: Denies nasal congestion or sore throat [] Respiratory: Denies cough or shortness of breath [] Cardiovascular: No additional information not addressed in HPI [] GI: Complaints of abdominal pain, nausea, vomiting,. Patient denies bloody stools or diarrhea [] : Denies dysuria or hematuria [] Musculoskeletal: Denies back pain or joint pain [] Integument: Denies rash or skin lesions [] Neurologic: Denies headache, focal weakness or sensory changes [] Endocrine: Denies polyuria or polydipsia [] All other systems were reviewed and found to be within normal limits, except as documented in this note. Family History Family History Multiple family members have had their gallbladder surgically removed Current Medications Current Medications See nursing for home meds Allergies Allergies Allergies Coded Allergies Type Severity Reaction Last Updated Verified No Known Drug Allergies 03/25/14 No Physical Exam Physical Exam Constitutional: in acute distress, non-toxic appearance. [] HENT: Normocephalic, atraumatic, bilateral external ears normal, oropharynx moist, no oral exudates, nose normal. [] Eyes: PERRLA, EOMI, conjunctiva normal, no discharge. [] Neck: Normal range of motion, no tenderness, supple, no stridor. [] Cardiovascular:Heart rate regular rhythm, no murmur [] Lungs & Thorax: Bilateral breath sounds equal at apexes with scattered wheezes on auscultation [] Abdomen: Bowel sounds hyperactive,, soft, epigastric and right upper quadrant tenderness, no masses, no pulsatile masses. [] Rebound to right upper quadrant and right flank. Old surgical scars from appendectomy. Skin: Warm, dry, no erythema, no rash. [] Back: No tenderness, no CVA tenderness. [] Extremities: No tenderness, no cyanosis, no clubbing, ROM intact, no edema. [] Mild psoas sign on right. Neurologic: Alert and oriented X 3, normal motor function, normal sensory function, no focal deficits noted. [] Psychologic: Affect anxious, judgement normal, mood normal. [] EKG EKG [] Radiology/Procedures Radiology/Procedures []IMAGING REPORT Signed PATIENT: HARIS ORTA ACCOUNT: [id number] : 1995 LOCATION: ER AGE: 23 SEX: F EXAM STATUS: REG ER ORD. PHYSICIAN: NINI TRUJILLO MD REASON: Severe right sided abdomen pain, hx biliary colic PROCEDURE: CT ABD PELV W/ORAL&IV CONTRAST Study: CT abdomen/pelvis with intravenous contrast Indication: Severe right-sided abdominal pain. Comparison: 08/07/2018 Technique: Helical CT imaging performed of the abdomen and pelvis after the intravenous administration of 74 cc Omnipaque 300 contrast. Sagittal and coronal reformats were obtained. One or more of the following individualized dose reduction techniques were utilized for this examination: 1. Automated exposure control 2. Adjustment of the mA and/or kV according to patient size 3. Use of iterative reconstruction technique. Findings: Portions of the study are degraded by motion artifact. No focal abnormality of the liver. Unremarkable gallbladder, pancreas, spleen and adrenal glands. Unremarkable kidneys and urinary bladder. No suspicious abnormality of the uterus or ovaries taking into consideration patient age. Unremarkable colon. Status post appendectomy. No findings to suggest small bowel obstruction. Contrast within the stomach that does not pass into the small bowel.Low-attenuation at the distal stomach/proximal duodenum, image 20 series 2, presumably ingested material. Unremarkable major vasculature. No free fluid is identified. No free air. No lymphadenopathy. Subcutaneous fatty reticulation with intermixed foci of air at the right lower quadrant ventral abdominal wall. A similar finding was present previously at the left lower quadrant and this is presumably injection related. Less pronounced subcutaneous fat stranding at the lower abdominal midline relative to the prior. No acute osseous abnormality. Impression: 1. Degraded study secondary to motion artifact however diagnostic utility is mostly maintained. 2. No acute abnormality is seen throughout the abdomen or pelvis. No CT evidence for acute cholecystitis and there are no findings of bowel obstruction. Note is made that oral contrast does not pass into the small bowel. This could be related to the timing of imaging after administration not allowing time for expected propagation. Additional consideration would be gastroparesis. No mechanical cause for obstruction is identified. Electronically signed by: BARBARA BERNAL MD (04/17/2019 1:50 AM) [facility] DICTATED AND SIGNED BY: BARBARA BERNAL MD DATE: 04/17/19 0150 CC: NINI TRUJILLO MD; RODRI MACE ~ Course & Med Decision Making Course & Med Decision Making Pertinent Labs and Imaging studies reviewed. (See chart for details) Patient to remain on a clear fluid diet only for the next 48 hours. Take Tylenol and ibuprofen for pain. Take Zofran for active vomiting. Follow-up primary care. Follow-up with surgery clinic and consider outpatient evaluation for biliary colic. Patient encouraged to stop smoking. Patient return of any concerns. Patient did leave before final CT results available because of child's nurse issues. Impression: 1. Abdomen Pain 2. Biliary Colic 3. Tobacco and Marijuana Use 4. Anemia Hgb 11.3 [] Dragon Disclaimer Dragon Disclaimer This electronic medical record was generated, in whole or in part, using a voice recognition dictation system. Departure Departure: Disposition: HOME/RESIDENCE PRIOR TO ADM Condition: STABLE Referrals: RODRI MACE (PCP) Scripts Ranitidine Hcl (ZANTAC) 150 Mg Tablet 150 MG PO BID for gastritis, #30 TAB Prov: NINI TRUJILLO MD 04/17/19 Ondansetron Hcl (ZOFRAN) 8 Mg Tablet 8 MG PO qidp for Active vomiting, #30 BOTTLE Prov: NINI TRUJILLO MD 04/17/19 [place] Disclaimer This chart was dictated in whole or in part using Voice Recognition software in a busy, high-work load, and often noisy Emergency Department environment. It may contain unintended and wholly unrecognized errors or omissions. NINI TRUJILLO MD Apr 16, 2019 20:08
[2019-04-16] MEDS ORDERED: IV RINGERS SOLUTION,LACTATED 1,000 ML IV SCH (20:44)
[2019-04-16] MEDS ORDERED: ONDANSETRON PF 4 MG/2 ML VIAL. ONE (20:44)
[2019-04-16] MEDS ORDERED: ONDANSETRON PF 4 MG/2 ML VIAL. IVP ONE ×2 (20:45→23:30)
[2019-04-16] MEDS ORDERED: MAGNESIUM HYDROXIDE 2,400 MG/30 ML ORAL.SUSP. PO ONE (20:45)
[2019-04-16] MEDS ORDERED: FAMOTIDINE 20 MG/2 ML VIAL IVP ONE (20:45)
[2019-04-16 21:23] LABS: BASO # 0.2 x10^3/uL (0.0-0.2); BASO % 2 % (0-3); EOS # 0.1 x10^3/uL (0.0-0.7); EOS % 2 % (0-3); HEMATOCRIT 34.7 % (36.0-47.0); HEMOGLOBIN 11.3 g/dL (12.0-15.5); LYMPH # 2.6 x10^3/uL (1.0-4.8); LYMPH % 27 % (24-48); MEAN CORPUSCULAR HEMOGLOBIN 27 pg (25-35); MEAN CORPUSCULAR HGB CONC 33 g/dL (31-37); MEAN CORPUSCULAR VOLUME 83 fL (79-100); MONO # 0.8 x10^3/uL (0.0-1.1); MONO % 9 % (0-9); NEUT # 5.7 x10^3uL (1.8-7.7); NEUT % 60 % (31-73); PLATELET COUNT 264 x10^3/uL (140-400); RED BLOOD COUNT 4.21 x10^6/uL (3.50-5.40); RED CELL DISTRIBUTION WIDTH 16.2 % (11.5-14.5); WHITE BLOOD COUNT 9.5 x10^3/uL (4.0-11.0)
[2019-04-16 21:26] LABS: CALCIUM 9.1 mg/dL (8.5-10.1); CREATININE 0.8 mg/dL (0.6-1.0); GFR 109.6
[2019-04-16 21:31] LABS: ALBUMIN 3.9 g/dL (3.4-5.0); DIRECT BILIRUBIN 0.1 mg/dL (0.0-0.2); TOTAL BILIRUBIN 0.2 mg/dL (0.2-1.0); TOTAL PROTEIN 7.7 g/dL (6.4-8.2)
[2019-04-16] MEDS ORDERED: MORPHINE SULFATE 10 MG/ML SYRINGE. SQ ONE ×2 (22:00)
[2019-04-16 22:38] LABS: BARBITURATES NEG (NEG); BENZODIAZEPINES NEG (NEG); CANNABINOIDS POS (NEG); COCAINE NEG (NEG); METHADONE NEG (NEG); OPIATES NEG (NEG); PHENCYCLIDINE NEG (NEG)
[2019-04-16 22:40] LABS: AMORPHOUS SEDIMENT,UR PRESENT /HPF; AMPHETAMINE/METHAMPHETAMINE NEG (NEG); BACTERIA,URINE 0 /HPF (0-FEW); BILIRUBIN,URINE NEG (NEG); CLARITY,URINE HAZY; COLOR,URINE YELLOW; GLUCOSE,URINE NEG (NEG); NITRITE,URINE NEG (NEG); SQUAMOUS EPITHELIAL CELL,UR OCC /LPF
[2019-04-16] MEDS ORDERED: IOHEXOL 240 MG/ML 50ML VIAL. PO ONE (23:15)
[2019-04-16] MEDS ORDERED: IOHEXOL 300 MG/ML 75 ML VIAL. IV ONE (23:15)
[2019-04-16] MEDS ORDERED: CONTRAST GIVEN MC PRN (23:30)
[2019-04-17] MEDS ORDERED: RANI-376 PO (00:28)
[2019-04-17] MEDS ORDERED: ONDA8TAB9 PO (00:28)
[2019-04-17 01:00] VITALS: BP 124/68
--- NOTE | 2019-04-17 01:53 | RAD ---
Study: CT abdomen/pelvis with intravenous contrast Indication: Severe right-sided abdominal pain. Comparison: 08/07/2018 Technique: Helical CT imaging performed of the abdomen and pelvis after the intravenous administration of 74 cc Omnipaque 300 contrast. Sagittal and coronal reformats were obtained. One or more of the following individualized dose reduction techniques were utilized for this examination: 1. Automated exposure control 2. Adjustment of the mA and/or kV according to patient size 3. Use of iterative reconstruction technique. Findings: Portions of the study are degraded by motion artifact. No focal abnormality of the liver. Unremarkable gallbladder, pancreas, spleen and adrenal glands. Unremarkable kidneys and urinary bladder. No suspicious abnormality of the uterus or ovaries taking into consideration patient age. Unremarkable colon. Status post appendectomy. No findings to suggest small bowel obstruction. Contrast within the stomach that does not pass into the small bowel.Low-attenuation at the distal stomach/proximal duodenum, image 20 series 2, presumably ingested material. Unremarkable major vasculature. No free fluid is identified. No free air. No lymphadenopathy. Subcutaneous fatty reticulation with intermixed foci of air at the right lower quadrant ventral abdominal wall. A similar finding was present previously at the left lower quadrant and this is presumably injection related. Less pronounced subcutaneous fat stranding at the lower abdominal midline relative to the prior. No acute osseous abnormality. Impression: 1. Degraded study secondary to motion artifact however diagnostic utility is mostly maintained. 2. No acute abnormality is seen throughout the abdomen or pelvis. No CT evidence for acute cholecystitis and there are no findings of bowel obstruction. Note is made that oral contrast does not pass into the small bowel. This could be related to the timing of imaging after administration not allowing time for expected propagation. Additional consideration would be gastroparesis. No mechanical cause for obstruction is identified. Electronically signed by: BARBARA BERNAL MD (04/17/2019 1:50 AM) [facility]
--- NOTE | 2019-04-17 07:45 | RAD ---
Examination: ACUTE ABDOMEN SERIES History: Right flank pain Comparison/Correlation: 08/07/2018 obstruction series Findings: Frontal view chest was obtained. Heart size and pulmonary vessels are normal. No infiltrate or pleural effusion. Supine and upright views of the abdomen were obtained. Moderate quantity of stool proximal colon noted. No obstruction. Fluid levels are present within nondistended bowel. No intraluminal gas. No abdominal calcifications identified. Surgical clips are present overlying the right L5-S1 level. Bony structures are unremarkable. Impression: No infiltrate. Fluid levels in nondistended bowel which may represent gastroenteritis. No obstruction. Electronically signed by: Jamal Lomeli MD (04/17/2019 7:42 AM) [facility]
[2019-04-17] MEDS ORDERED: DICY20TA3 PO (12:58)
== END 2019-04-17 01:00 | disposition home or self-care (01) ==
LOC: ER 19:44
DX: K80.50 Calculus of bile duct without cholangitis or cholecystitis without obstruction (principal); D64.9 Anemia, unspecified; J45.909 Unspecified asthma, uncomplicated; K21.9 Gastro-esophageal reflux disease without esophagitis; F17.210 Nicotine dependence, cigarettes, uncomplicated; R11.2 Nausea with vomiting, unspecified; Z90.89 Acquired absence of other organs
CPT/HCPCS: 36415; 74022; 74177; 80048; 80076; 80307; 81001; 81025; 82150; 83690; 84484; 85025; 85610; 85730; 96361; 96372; 96374; 96375; 96376; 99285; J2270; J2405; J3490; J7120; Q9966; Q9967

== ENCOUNTER 2019-04-17 10:19 | Emergency (ER) | payer OTHER ==
[~2019-04-17] VITALS: Ht 167.6 cm; Wt 103.5 kg
[~2019-04-17 10:19] MED LIST changes: +ONDA8TAB9 PO; +RANI-376 PO
--- NOTE | 2019-04-17 11:21 | PHYS DOC ---
Past History Past Medical History: Asthma, Gallstones, GERD Past Surgical History: Appendectomy, Tonsillectomy, Other Additional Past Surgical Histo: abd hernia repair Smoking: Cigarettes Alcohol Use: None Drug Use: None Adult General Chief Complaint Chief Complaint: [facility] Patient is a 23-year-old female who presented to ER today for evaluation of nausea, vomiting, abdominal pain radiated to her back and right shoulder for several Days. She was evaluated here last night for same symptom, CT scan of abdomen and pelvic did not show a problem. She denies any fever, no chest pain, no trouble breathing. She says she has history of gallbladder problem when she was . Denied Any recent travel or operation, no history of blood clot disorder. All other ROS is negative unless otherwise noted in HPI Review of Systems Review of Systems See above Allergies Allergies Allergies Coded Allergies Type Severity Reaction Last Updated Verified No Known Drug Allergies 03/25/14 No Physical Exam Physical Exam See above Constitutional: Well developed, well nourished, no acute distress, non-toxic appearance. [] HENT: Normocephalic, atraumatic, bilateral external ears normal, oropharynx moist, no oral exudates, nose normal. [] Eyes: PERRLA, EOMI, conjunctiva normal, no discharge. [] Neck: Normal range of motion, no tenderness, supple, no stridor. [] Cardiovascular:Heart rate regular rhythm, no murmur [] Lungs & Thorax: Bilateral breath sounds clear to auscultation [] Abdomen: Bowel sounds normal, soft, There is tenderness to palpation IN RUQ, no masses, no pulsatile masses. [] Skin: Warm, dry, no erythema, no rash. [] Back: No tenderness, no CVA tenderness. [] Extremities: No tenderness, no cyanosis, no clubbing, ROM intact, no edema. [] Neurologic: Alert and oriented X 3, normal motor function, normal sensory function, no focal deficits noted. [] Psychologic: Affect normal, judgement normal, mood normal. [] Current Patient Data Vital Signs Vital Signs Date Time Temp Pulse Resp B/P (MAP) Pulse Ox O2 Delivery O2 Flow Rate FiO2 04/17/19 10:29 98.2 64 16 97 Room Air EKG EKG [] Radiology/Procedures Radiology/Procedures [][address] [address] IMAGING REPORT Signed PATIENT: HARIS ORTA ACCOUNT: [id number] : 1995 LOCATION: ER AGE: 23 SEX: F EXAM STATUS: REG ER ORD. PHYSICIAN: LIBERTAD DE LA TORRE DO REASON: RUQ abdominal pain with nausea and vomiting PROCEDURE: ABDOMEN LTD EXAM: Abdomen sonogram. HISTORY: Pain. TECHNIQUE: Sonographic imaging of the abdomen was performed. COMPARISON: 04/16/2019. FINDINGS: The liver is normal in size. No focal hepatic lesion is seen. The common bile duct is normal in caliber. The gallbladder, pancreas, right kidney, and inferior cava are unremarkable. The aorta is not formally assessed. IMPRESSION: Unremarkable abdomen sonogram. Electronically signed by: Josiane Johnson MD (04/17/2019 12:17 PM) [facility] DICTATED AND SIGNED BY: JOSIANE JOHNSON MD DATE: 04/17/19 1217 CC: LIBERTAD DE LA TORRE DO; RODRI MACE ~ Course & Med Decision Making Course & Med Decision Making Pertinent Labs and Imaging studies reviewed. (See chart for details) [] Dragon Disclaimer Dragon Disclaimer This electronic medical record was generated, in whole or in part, using a voice recognition dictation system. Departure Departure: Impression: Primary Impression: Abdominal pain Disposition: HOME, SELF-CARE Condition: STABLE Referrals: RODRI MACE (PCP) please follow up with your doctor for further evaluation, GI REFERRAL. Patient Instructions: Abdominal Pain Scripts Dicyclomine Hcl (DICYCLOMINE HCL) 20 Mg Tablet 20 MG PO TID for ABDOMINAL CRAMPING, #30 TAB Prov: LIBERTAD DE LA TORRE DO 04/17/19 LIBERTAD DE LA TORRE DO Apr 17, 2019 11:21
[2019-04-17] MEDS ORDERED: IV NORMAL SALINE 1,000ML 1,000 ML IV ONE (11:30)
[2019-04-17] MEDS ORDERED: FAMOTIDINE 20 MG/2 ML VIAL IVP ONE (11:30)
[2019-04-17] MEDS ORDERED: MORPHINE SULFATE 4 MG/ML DISP.SYRIN. IV ONE (11:30)
[2019-04-17] MEDS ORDERED: METOCLOPRAMIDE HCL 10 MG/2 ML VIAL. IVP ONE (11:30)
[2019-04-17 11:51] LABS: BASO # 0.1 x10^3/uL (0.0-0.2); BASO % 1 % (0-3); EOS # 0.2 x10^3/uL (0.0-0.7); EOS % 2 % (0-3); HEMATOCRIT 33.6 % (36.0-47.0); HEMOGLOBIN 10.9 g/dL (12.0-15.5); LYMPH # 1.4 x10^3/uL (1.0-4.8); LYMPH % 21 % (24-48); MEAN CORPUSCULAR HEMOGLOBIN 27 pg (25-35); MEAN CORPUSCULAR HGB CONC 32 g/dL (31-37); MEAN CORPUSCULAR VOLUME 83 fL (79-100); MONO # 0.8 x10^3/uL (0.0-1.1); MONO % 11 % (0-9); NEUT # 4.4 x10^3uL (1.8-7.7); NEUT % 65 % (31-73); PLATELET COUNT 234 x10^3/uL (140-400); RED BLOOD COUNT 4.05 x10^6/uL (3.50-5.40); RED CELL DISTRIBUTION WIDTH 15.8 % (11.5-14.5); WHITE BLOOD COUNT 6.8 x10^3/uL (4.0-11.0)
[2019-04-17 11:56] LABS: CALCIUM 8.7 mg/dL (8.5-10.1); CREATININE 0.8 mg/dL (0.6-1.0); GFR 109.6; POTASSIUM 3.8 mmol/L (3.5-5.1)
[2019-04-17 12:01] LABS: ALBUMIN 3.6 g/dL (3.4-5.0); TOTAL BILIRUBIN 0.4 mg/dL (0.2-1.0); TOTAL PROTEIN 7.3 g/dL (6.4-8.2)
--- NOTE | 2019-04-17 12:20 | RAD ---
EXAM: Abdomen sonogram. HISTORY: Pain. TECHNIQUE: Sonographic imaging of the abdomen was performed. COMPARISON: 04/16/2019. FINDINGS: The liver is normal in size. No focal hepatic lesion is seen. The common bile duct is normal in caliber. The gallbladder, pancreas, right kidney, and inferior cava are unremarkable. The aorta is not formally assessed. IMPRESSION: Unremarkable abdomen sonogram. Electronically signed by: Josiane Stephens MD (04/17/2019 12:17 PM) [place] [id number]
[2019-04-17] MEDS ORDERED: DICY20TA3 PO (12:58)
[2019-04-17 13:10] VITALS: BP 121/67
== END 2019-04-17 13:12 | disposition home or self-care (01) ==
LOC: ER 10:19
DX: R11.2 Nausea with vomiting, unspecified (principal); J45.909 Unspecified asthma, uncomplicated; K21.9 Gastro-esophageal reflux disease without esophagitis; F17.210 Nicotine dependence, cigarettes, uncomplicated; Z90.89 Acquired absence of other organs
CPT/HCPCS: 36415; 76705; 80053; 83690; 85025; 96361; 96374; 96375; 99285; J2270; J2765; J3490; J7030

== ENCOUNTER → 2019-05-28 | Outpatient (CLI) | payer OTHER ==
[~2019-05-28] VITALS: Ht 167.6 cm; Wt 104.3 kg
[~2019-05-28] MED LIST changes: +DICY20TA3 PO; +SINCALIDE 2.09 MCG in IV NORMAL SALINE 50ML 30 ML IV ONE
--- NOTE | 2019-05-28 12:24 | RAD ---
HEPATOBILIARY SCAN WITH EJECTION FRACTION 05/28/2019 12:20 PM History: Epigastric pain Procedure: Serial static images are obtained of the liver and biliary system in the frontal projection following IV administration of 5.5 mCi of Technetium 99m Choletec. After filling of the gallbladder, 09 mcg of sincalide were infused over 30 minutes and dynamic imaging continued over this period. The gallbladder ejection fraction was calculated. Findings: There is prompt hepatic clearance of tracer from the blood pool. There is homogeneous distribution throughout the liver. The gallbladder ejection fraction measures 91% (normal gallbladder EF is 35% or greater). IMPRESSION: 1. The cystic duct and common bile duct are patent. Negative for acute cholecystitis. 2. The gallbladder ejection fraction is normal Electronically signed by: Dalton Lopez MD (05/28/2019 12:21 PM) [id number]
== END | disposition home or self-care (01) ==
LOC: NM 07:21
PROVIDERS: ATTEND Internal Medicine Gastroenterology
DX: R10.13 Epigastric pain (principal)
CPT/HCPCS: 78227; A9537; J2805

== ENCOUNTER 2019-08-25 16:56 | Emergency (ER) | payer OTHER ==
[~2019-08-25] VITALS: Ht 167.6 cm; Wt 103.5 kg
[~2019-08-25 16:56] MED LIST changes: -SINCALIDE 2.09 MCG in IV NORMAL SALINE 50ML 30 ML IV ONE
[2019-08-25] MEDS ORDERED: IBUPROFEN 600 MG TABLET. PO ONE (17:15)
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
--- NOTE | 2019-08-25 17:52 | RAD ---
Right wrist x-rays 3 views HISTORY: Right wrist pain and injury. FINDINGS: No fracture. No dislocation. No arthritic change. Soft tissues are unremarkable. IMPRESSION: Normal exam. Left hand x-rays 3 views. HISTORY: Left hand pain, left fifth digit pain, second MCP joint pain. FINDINGS: Only apparent on the frontal view at the ulnar sided cortex base fifth distal phalanx adjacent of the DIP joint there is a small linear 2 mm fragment which could be a small fracture, secondarily this could be ligamentous or joint capsule calcification. The remainder of the hand is intact without fracture evident. No dislocation. IMPRESSION: Possible small acute traumatic fracture at the base of the fifth distal phalanx as described above. Right hip AP lateral x-rays 2 views HISTORY: Right hip pain and injury. FINDINGS: No fracture. No dislocation. No arthritic change. The soft tissues are unremarkable. IMPRESSION: No acute osseous injury of the right hip. Electronically signed by: Miguelito Back MD (08/25/2019 5:49 PM) [facility]
== END 2019-08-25 18:17 | disposition home or self-care (01) ==
LOC: EEVIPCON 16:56 → ER 16:56
DX: S10.93XA Contusion of unspecified part of neck, initial encounter (principal); S70.11XA Contusion of right thigh, initial encounter; S70.01XA Contusion of right hip, initial encounter; S60.052A Contusion of left little finger without damage to nail, initial encounter; S60.022A Contusion of left index finger without damage to nail, initial encounter; S60.212A Contusion of left wrist, initial encounter; J45.909 Unspecified asthma, uncomplicated; K21.9 Gastro-esophageal reflux disease without esophagitis; F17.210 Nicotine dependence, cigarettes, uncomplicated; Y04.0XXA Assault by unarmed brawl or fight, initial encounter; Y93.89 Activity, other specified; Y92.89 Other specified places as the place of occurrence of the external cause; Y99.8 Other external cause status
CPT/HCPCS: 73110; 73130; 73502; 99284

== ENCOUNTER → 2019-10-23 | Outpatient (CLI) | payer OTHER ==
[~2019-10-23] MED LIST changes: +PROM118S10 PO; -PROM118S9 PO
[2019-10-23 13:50] LABS: AMPHETAMINE/METHAMPHETAMINE NEG (NEG); BARBITURATES NEG (NEG); BENZODIAZEPINES NEG (NEG); CANNABINOIDS NEG (NEG); COCAINE NEG (NEG); METHADONE NEG (NEG); OPIATES NEG (NEG); PHENCYCLIDINE NEG (NEG)
== END | disposition home or self-care (01) ==
LOC: LAB 13:17
PROVIDERS: ATTEND Physician Assistant Medical
DX: T74.91XA Unspecified adult maltreatment, confirmed, initial encounter (principal); Z02.83 Encounter for blood-alcohol and blood-drug test; X58.XXXA Exposure to other specified factors, initial encounter; Y92.89 Other specified places as the place of occurrence of the external cause; Y93.89 Activity, other specified; Y99.8 Other external cause status
CPT/HCPCS: 36415; 80307

== ENCOUNTER 2020-02-08 14:55 | Emergency (ER) | payer OTHER ==
[~2020-02-08] VITALS: Ht 167.6 cm; Wt 103.5 kg
[2020-02-08 15:06] VITALS: BP 131/49
[2020-02-08] MEDS ORDERED: IOHEXOL 300 MG/ML 75 ML VIAL. IV ONE (15:45)
[2020-02-08 15:53] LABS: COLOR,URINE COLORLESS
[2020-02-08 15:54] LABS: BACTERIA,URINE FEW /HPF (0-FEW); BILIRUBIN,URINE NEG (NEG); CLARITY,URINE CLEAR; GLUCOSE,URINE NEG (NEG); NITRITE,URINE NEG (NEG); RBC,URINE 0 /HPF (0-2); SQUAMOUS EPITHELIAL CELL,UR FEW /LPF; UROBILINOGEN,URINE 0.2 mg/dL (0.2 mg/dL)
[2020-02-08] MEDS ORDERED: ONDANSETRON PF 4 MG/2 ML VIAL. IVP ONE (16:00)
--- NOTE | 2020-02-08 16:35 | RAD ---
Chest AP only at 1615: Reason for examination: Short of breath. Hemoptysis. Comparison is made to previous study dated 12/19/2018. The heart size is normal. Mediastinum is unremarkable. Lung delaney are clear. No acute bony abnormalities are seen. Impression: No acute cardiopulmonary disease. Electronically signed by: Rosangela Raymond MD (02/08/2020 4:32 PM) [id number]
--- NOTE | 2020-02-08 16:39 | RAD ---
CT abdomen pelvis with contrast dated 02/08/2020. Comparison made to 04/16/2019. CLINICAL INDICATION: Epigastric pain. TECHNIQUE: Contiguous axial imaging the abdomen pelvis performed after the administration of 75 cc Omnipaque 300. One or more of the following individualized dose reduction techniques were utilized for this examination: 1. Automated exposure control 2. Adjustment of the mA and/or kV according to patient size 3. Use of iterative reconstruction technique FINDINGS: Limited images of lung bases are clear. Heart size within normal limits. No pleural or pericardial effusion. Liver, spleen, pancreas, adrenal glands and kidneys are unremarkable. No hydronephrosis. Gallbladder surgically absent. Unopacified GI tract normal in caliber and contour. No focal bowel wall thickening. Appendix is surgically absent. No free fluid or lymphadenopathy. Abdominal aorta normal in caliber. Images of pelvis show nondistended urinary bladder. Uterus is retroflexed. There is a small amount of free fluid. No pelvic adenopathy. Bone windows show no acute findings. Mild multilevel spondylosis. IMPRESSION: 1. No acute abnormality of abdomen or pelvis. 2. Small amount of free pelvic fluid, nonspecific. 3. Status post appendectomy and cholecystectomy. Electronically signed by: Noé Lewis MD (02/08/2020 4:36 PM) [facility]
--- NOTE | 2020-02-08 16:50 | PHYS DOC ---
Past History Past Medical History: Asthma, Gallstones, GERD Past Surgical History: Appendectomy, Tonsillectomy, Other Additional Past Surgical Histo: abd hernia repair Smoking: Cigarettes Alcohol Use: None Drug Use: None Adult General Chief Complaint Chief Complaint: HEMATEMESIS/VOMITING BLOOD [facility] HPI Patient is a 24-year-old female who presents for hemoptysis. She reports approximately 4 days of URI-like symptoms. She has had x2 - Covid tests in the past week. Reports ongoing nausea, vomit, and epigastric pain. Patient suffered x2 episodes of bright red bloody emesis which she quantifies as 18 ounces total this morning. A family member is a nurse and advised she seek immediate medical attention for this. She has never suffered anything like this before. Has no other risk factors for hemoptysis, no recent long distance travel or any concerning signs or risk factors for pulmonary embolism, does not abuse alcohol or NSAIDs, admits being nauseous with intermittent episodes of vomit but no retching. She has never had an EGD. She has no known coagulopathies. She has history of chronic abdominal pain for which she has had her appendix and gallbladder removed Review of Systems Review of Systems Fourteen body systems of review of systems have been reviewed. See HPI for pertinent positives and negative responses, other oakley all other systems are negative, non-pertinent or non-contributory Current Medications Current Medications Current Medications Medications (Trade) Dose Ordered Sig/Freedom Start Time Stop Time Status Last Admin Dose Admin Fentanyl Citrate (Fentanyl 2ml Vial) 50 mcg 1X ONCE 02/08/20 16:00 02/08/20 16:01 DC 02/08/20 16:03 50 MCG Iohexol (Omnipaque 300 Mg/ml) 75 ml 1X ONCE 02/08/20 15:45 02/08/20 15:48 DC Ondansetron HCl (Zofran) 4 mg 1X ONCE 02/08/20 16:00 02/08/20 16:01 DC 02/08/20 16:03 4 MG Allergies Allergies Allergies Coded Allergies Type Severity Reaction Last Updated Verified No Known Drug Allergies 03/25/14 No Physical Exam Physical Exam Constitutional: Well developed, well nourished, non-toxic appearance. Playing on phone throughout duration of ER visit in no acute distress HENT: Normocephalic, atraumatic, bilateral external ears normal, oropharynx moist, no oral exudates, nose normal. Eyes: PERRLA, EOMI, conjunctiva normal, no discharge. Neck: Normal range of motion, no tenderness, supple, no stridor. Cardiovascular: Heart rate regular, sinus rhythm, no murmurs rubs or gallops Lungs & Thorax: Bilateral breath sounds clear to auscultation Abdomen: Bowel sounds normal, soft, epigastric tenderness on palpation without guarding or rebound, no masses, no pulsatile masses. Nonsurgical abdomen, no peritoneal signs Skin: Warm, dry, no erythema, no rash. Back: No tenderness, no CVA tenderness. Extremities: No tenderness, no cyanosis, no clubbing, ROM intact, no edema. Neurologic: Alert and oriented X 3, grossly normal motor & sensory function, no focal deficits noted. Psychologic: Affect normal, judgement normal, mood normal. Current Patient Data Vital Signs Vital Signs Date Time Temp Pulse Resp B/P (MAP) Pulse Ox O2 Delivery O2 Flow Rate FiO2 02/08/20 16:03 16 98 02/08/20 15:06 98.3 97 131/49 (76) Room Air Lab Results Laboratory Tests Test 02/08/20 15:24 02/08/20 15:43 Urine Collection Type Unknown Urine Color Colorless Urine Clarity Clear Urine pH 8.0 Urine Specific [place] 1.025 Urine Protein Neg (NEG-TRACE) Urine Glucose (UA) Neg mg/dL (NEG) Urine Ketones (Stick) Neg mg/dL (NEG) Urine Blood Neg (NEG) Urine Nitrite Neg (NEG) Urine Bilirubin Neg (NEG) Urine Urobilinogen Dipstick 0.2 mg/dL (0.2 mg/dL) Urine Leukocyte Esterase Trace (NEG) Urine RBC 0 /HPF (0-2) Urine WBC 1-4 /HPF (0-4) Urine Squamous Epithelial Cells Few /LPF Urine Bacteria Few /HPF (0-FEW) POC Urine HCG, Qualitative hcg negative (Negative) EKG EKG [] Radiology/Procedures Radiology/Procedures PROCEDURE: CT ABD PELV W/ IV CONTRST ONLY CT abdomen pelvis with contrast dated 02/08/2020. Comparison made to 04/16/2019. CLINICAL INDICATION: Epigastric pain. TECHNIQUE: Contiguous axial imaging the abdomen pelvis performed after the administration of 75 cc Omnipaque 300. One or more of the following individualized dose reduction techniques were utilized for this examination: 1. Automated exposure control 2. Adjustment of the mA and/or kV according to patient size 3. Use of iterative reconstruction technique FINDINGS: Limited images of lung bases are clear. Heart size within normal limits. No pleural or pericardial effusion. Liver, spleen, pancreas, adrenal glands and kidneys are unremarkable. No hydronephrosis. Gallbladder surgically absent. Unopacified GI tract normal in caliber and contour. No focal bowel wall thickening. Appendix is surgically absent. No free fluid or lymphadenopathy. Abdominal aorta normal in caliber. Images of pelvis show nondistended urinary bladder. Uterus is retroflexed. There is a small amount of free fluid. No pelvic adenopathy. Bone windows show no acute findings. Mild multilevel spondylosis. IMPRESSION: 1. No acute abnormality of abdomen or pelvis. 2. Small amount of free pelvic fluid, nonspecific. 3. Status post appendectomy and cholecystectomy. Electronically signed by: Noé Lewis MD (02/08/2020 4:36 PM) [facility] Heart Score HEART Score for Chest Pain: HEART Score for Chest Pain Response (Comments) Value History Slighlty/Non-Suspicious 0 ECG Normal 0 Age < 45 0 Total 0 Risk Factors: Risk Factors: DM, Current or recent (<one month) smoker, HTN, HLP, family history of CAD, obesity. Risk Scores: Risk Factors: DM, Current or recent (<one month) smoker, HTN, HLP, family history of CAD, obesity. Course & Med Decision Making Course & Med Decision Making Pertinent Labs and Imaging studies reviewed. (See chart for details) I discussed most likely diagnosis of nausea and vomiting from likely self- limiting disease versus gastritis. I do not feel patient's reported hemoptysis was the amount specified and/or emergent in nature as she has been well- appearing, nontoxic, hemodynamically stable without recurrence I did disclose this might be an acute presentation more concerning pathology and thus outpatient follow-up is advised with an upcoming 7 days. I discussed potential role for future ultrasonography of the abdomen and/or GI referral I gave patient fluids, pain medication and PPI in ER with moderate relief in symptoms. At this time I feel safe discharging patient with close follow-up and new prescription for short-term PPI use All questions and concerns addressed prior to ER departure, strict return precautions were discussed with good understanding, patient discharged home in stable condition Chase Disclaimer Dragon Disclaimer This electronic medical record was generated, in whole or in part, using a voice recognition dictation system. Departure Departure: Impression: Primary Impression: Unspecified abdominal pain Additional Impression: Nausea & vomiting Disposition: 01 DC HOME SELF CARE/HOMELESS Condition: STABLE Referrals: RODRI MACE (PCP) Patient Instructions: Abdominal Pain (Nonspecific), Nausea and Vomiting Additional Instructions: You have been evaluated in the Emergency Department today for abdominal pain. Your evaluation was not suggestive of any emergent condition requiring medical intervention at this time. However, some abdominal problems make take more time to appear. Therefore, it is important for you to watch for any new symptoms or worsening of your current condition. As discussed prior to departure, please call your primary care physician first thing tomorrow morning to schedule outpatient follow-up for upcoming 1 to 14 days for repeat examination. If pain is still unresolved, I would discuss need for pelvic ultrasound and/or GI referral Return to the Emergency Department if you experience worsening pain, persistent fevers greater than 100.4, recurrent vomiting, blood in vomit, blood in stool, dark tarry stool, chest pain, difficulty breathing, or any other concerning symptoms. Scripts Omeprazole (OMEPRAZOLE) 40 Mg Capsule.dr 1 CAP PO DAILY for AP PAIN, #30 CAP 3 Refills Prov: DORA CELESTIN DO 02/08/20 Problem Qualifiers DORA CELESTIN DO Feb 08, 2020 16:50
[2020-02-08 18:01] LABS: BASO # 0.1 x10^3/uL (0.0-0.2); BASO % 1 % (0-3); EOS # 0.1 x10^3/uL (0.0-0.7); EOS % 1 % (0-3); HEMATOCRIT 35.4 % (36.0-47.0); LYMPH # 2.9 x10^3/uL (1.0-4.8); LYMPH % 29 % (24-48); MEAN CORPUSCULAR HEMOGLOBIN 25 pg (25-35); MEAN CORPUSCULAR HGB CONC 31 g/dL (31-37); MEAN CORPUSCULAR VOLUME 81 fL (79-100); MONO # 0.8 x10^3/uL (0.0-1.1); MONO % 8 % (0-9); NEUT # 6.4 x10^3uL (1.8-7.7); NEUT % 62 % (31-73); PLATELET COUNT 270 x10^3/uL (140-400); RED BLOOD COUNT 4.38 x10^6/uL (3.50-5.40); RED CELL DISTRIBUTION WIDTH 16.6 % (11.5-14.5); WHITE BLOOD COUNT 10.3 x10^3/uL (4.0-11.0)
[2020-02-08 18:10] LABS: CALCIUM 9.3 mg/dL (8.5-10.1); GFR 83.9
[2020-02-08 18:15] LABS: ALBUMIN 4.3 g/dL (3.4-5.0); ALBUMIN/GLOBULIN RATIO 1.1 (1.0-1.7); TOTAL BILIRUBIN 0.2 mg/dL (0.2-1.0); TOTAL PROTEIN 8.3 g/dL (6.4-8.2)
[2020-02-08] MEDS ORDERED: OMEP40CA45 PO (18:20)
[2020-02-08] MEDS ORDERED: PANTOPRAZOLE IV 40 MG VIAL. IVP ONE (18:30)
== END 2020-02-08 18:33 | disposition home or self-care (01) ==
LOC: ER 14:55
DX: R10.13 Epigastric pain (principal); R11.2 Nausea with vomiting, unspecified; R04.2 Hemoptysis; J45.909 Unspecified asthma, uncomplicated; K21.9 Gastro-esophageal reflux disease without esophagitis; F17.210 Nicotine dependence, cigarettes, uncomplicated; Z90.89 Acquired absence of other organs; Z98.890 Other specified postprocedural states
CPT/HCPCS: 36415; 71045; 74177; 80053; 81001; 81025; 83690; 85025; 87086; 96374; 96375; 96376; 99285; J2405; J3010

== ENCOUNTER 2020-03-01 19:59 | Emergency (ER) | payer OTHER ==
[~2020-03-01] VITALS: Ht 167.6 cm; Wt 103.5 kg
[~2020-03-01 19:59] MED LIST changes: +OMEP40CA45 PO
[2020-03-01 20:05] VITALS: BP 120/59
--- NOTE | 2020-03-01 20:13 | PHYS DOC ---
Past History Past Medical History: Asthma, Gallstones, GERD Past Surgical History: Appendectomy, Tonsillectomy, Other Additional Past Surgical Histo: abd hernia repair Smoking: Cigarettes Alcohol Use: None Drug Use: None General Adult EDM: Chief Complaint: FOOT INJURY PAIN HPI: HPI: Patient is a 24 year old female who presents for evaluation of left foot injury. Patient had been moving a dresser fell on her foot. She states that she had moderate to severe pain in that affected foot. She is unable to bear weight due to pain. She had taken ibuprofen prior to arrival. She currently rates her pain a 7 out of 10. There is some swelling present but no visible deformity. She has no specific ankle pain on that side. Review of Systems: Review of Systems: Constitutional: Denies fever or chills Eyes: Denies change in visual acuity HENT: Denies nasal congestion or sore throat Respiratory: Denies cough or shortness of breath Cardiovascular: Denies chest pain or edema GI: Denies abdominal pain, nausea, vomiting, bloody stools or diarrhea : Denies dysuria Musculoskeletal: Denies back pain or joint pain Integument: Denies rash Neurologic: Denies headache, focal weakness or sensory changes Endocrine: Denies polyuria or polydipsia Lymphatic: Denies swollen glands Psychiatric: Denies depression or anxiety Current Medications: Current Meds: Current Medications Medications (Trade) Dose Ordered Sig/Freedom Start Time Stop Time Status Last Admin Dose Admin Tramadol HCl (Ultram) 50 mg 1X ONCE 03/01/20 20:15 03/01/20 20:16 UNV Allergies: Allergies: Allergies Coded Allergies Type Severity Reaction Last Updated Verified No Known Drug Allergies 03/25/14 No Physical Exam: PE: Constitutional: Well developed, well nourished, mild acute distress, non-toxic appearance. [] HENT: Normocephalic, atraumatic, bilateral external ears normal, oropharynx moist, nose normal. [] Eyes: PERRL, EOMI, conjunctiva normal, no discharge. [] Neck: Normal range of motion, no tenderness, supple, no stridor. [] Cardiovascular:Heart rate regular rhythm, no murmur [] Lungs & Thorax: Bilateral breath sounds clear to auscultation [] Abdomen: Bowel sounds normal, soft, no tenderness, no masses. [] Skin: Warm, dry, small area of cellulitis developing around her left forearm tattoo site. [] Back: No tenderness. [] Extremities: moderate top of left foot tenderness, no cyanosis, ROM intact, minimal edema. [] Neurologic: Alert and oriented, normal motor function, normal sensory function, no focal deficits noted. [] Psychologic: Affect normal, judgement normal, mood normal. [] EKG: EKG: [] Radiology/Procedures: Radiology/Procedures: [address] [address] IMAGING REPORT Signed PATIENT: HARIS ORTA ACCOUNT: [id number] : 1995 LOCATION: ER AGE: 24 SEX: F EXAM STATUS: REG ER ORD. PHYSICIAN: HARIKA BROWN DO REASON: pain, crush injury, LATERAL DISTAL FOOT PAIN PROCEDURE: FOOT LEFT 3V Examination: FOOT LEFT 3V History: Reason: pain, crush injury, LATERAL DISTAL FOOT PAIN / Spl. Instructions: / History: Comparison/Correlation: None Findings: 3 images of the left foot were obtained. Joint spaces are normal. No fracture or bone obstruction. No soft tissue swelling. No radiopaque foreign body. Impression: No suspicious process. Electronically signed by: Jamal Monroe MD (03/01/2020 8:37 PM) [facility] DICTATED AND SIGNED BY: JAMAL MONROE MD DATE: 03/01/202036 CC: RODRI MACE; HARIKA BROWN DO ~ [] Heart Score: Risk Factors: Risk Factors: DM, Current or recent (<one month) smoker, HTN, HLP, family history of CAD, obesity. Risk Scores: Score 0 - 3: 2.5% MACE over next 6 weeks - Discharge Home Score 4 - 6: 20.3% MACE over next 6 weeks - Admit for Clinical Observation Score 7 - 10: 72.7% MACE over next 6 weeks - Early Invasive Strategies Course & Med Decision Making: Course & Med Decision Making Pertinent Labs and Imaging studies reviewed. (See chart for details) [] Dragon Disclaimer: Dragon Disclaimer: This electronic medical record was generated, in whole or in part, using a voice recognition dictation system. 2053 stable, patient feeling better at this time. Patient was concerned about a small area of redness to her left forearm. She has some developing cellulitis. Prescription for clindamycin given. There is no fracture noted on her left foot. She was given an Corey wrap for comfort. She states she is not able to bear weight due to pain so she was given crutches to use for the next several days. She has for something stronger for pain but advised her that she needs to use gvin-dpt-mnuicsr ibuprofen or Tylenol. Departure Departure: Impression: Primary Impression: Contusion of left foot Qualified Codes: S90.32XA - Contusion of left foot, initial encounter Additional Impression: Cellulitis of left forearm Disposition: DC HOME SELF CARE/HOMELESS Condition: STABLE Referrals: RODRI MACE (PCP) Patient Instructions: Cellulitis, [id number], Contusion, Crutch Use Additional Instructions: Rest, ice and elevate the injured left foot, take antibiotic as directed to treat your early left forearm skin infection. Use dgfu-kqn-klicosg ibuprofen up to 800 mg 3 times a day for pain or swelling. You may also take Tylenol ayvz-wcm-xmguidy for pain Scripts Clindamycin Hcl (CLINDAMYCIN HCL) 150 Mg Capsule 1 CAP PO QID for skin infection, #28 CAP Prov: HARIKA BROWN DO 03/01/20 HARIKA BROWN DO Mar 01, 2020 20:13
[2020-03-01] MEDS ORDERED: traMADol 50 MG TABLET PO ONE (20:15)
--- NOTE | 2020-03-01 20:40 | RAD ---
Examination: FOOT LEFT 3V History: Reason: pain, crush injury, LATERAL DISTAL FOOT PAIN / Spl. Instructions: / History: Comparison/Correlation: None Findings: 3 images of the left foot were obtained. Joint spaces are normal. No fracture or bone obstruction. No soft tissue swelling. No radiopaque foreign body. Impression: No suspicious process. Electronically signed by: Jamal Lomeli MD (03/01/2020 8:37 PM) [facility]
[2020-03-01] MEDS ORDERED: CLIN150C14 PO (20:58)
== END 2020-03-01 21:05 | disposition home or self-care (01) ==
LOC: ER 19:59
DX: S90.32XA Contusion of left foot, initial encounter (principal); L03.114 Cellulitis of left upper limb; J45.909 Unspecified asthma, uncomplicated; K21.9 Gastro-esophageal reflux disease without esophagitis; F17.210 Nicotine dependence, cigarettes, uncomplicated; W18.39XA Other fall on same level, initial encounter; Y93.89 Activity, other specified; Y92.89 Other specified places as the place of occurrence of the external cause; Y99.8 Other external cause status
CPT/HCPCS: 73630; 99283

== ENCOUNTER 2020-03-04 13:49 | Emergency (ER) | payer OTHER ==
[~2020-03-04] VITALS: Ht 167.6 cm; Wt 103.5 kg
[~2020-03-04 13:49] MED LIST changes: +CLIN150C14 PO
--- NOTE | 2020-03-04 14:03 | PHYS DOC ---
Past History Past Medical History: Asthma, Gallstones, GERD Past Surgical History: Appendectomy, Cholecystectomy, Tonsillectomy, Other Additional Past Surgical Histo: abd hernia repair Smoking: Cigarettes Alcohol Use: None Drug Use: None Adult General Chief Complaint Chief Complaint: abscess HPI HPI Patient is a 24-year-old female presents to the emergency room for evaluation of abscess to the left forearm. She reports that she first noticed it last Sunday. She was seen in this emergency room 3 days ago and put on clindamycin. She followed up with her primary care doctor yesterday who gave her an IM antibiotic in the office and recommended she continue on the clindamycin. She states the pain is radiating throughout the forearm now. She feels that it is getting worse instead of better. She believes her tetanus immunization was approximately 2 years ago. Review of Systems Review of Systems Constitutional: Denies fever or chills [] Eyes: Denies change in visual acuity, redness, or eye pain [] HENT: Denies nasal congestion or sore throat [] Respiratory: Denies cough or shortness of breath [] Cardiovascular: No additional information not addressed in HPI [] GI: Denies abdominal pain, vomiting, bloody stools or diarrhea [] : Denies dysuria or hematuria [] Musculoskeletal: Denies back pain or joint pain [] Integument: abscess left forearm Neurologic: Denies headache, focal weakness or sensory changes [] Endocrine: Denies polyuria or polydipsia [] All other systems were reviewed and found to be within normal limits, except as documented in this note. Allergies Allergies Allergies Coded Allergies Type Severity Reaction Last Updated Verified No Known Drug Allergies 03/25/14 No Physical Exam Physical Exam Constitutional: Well developed, well nourished, no acute distress, non-toxic appearance. [] HENT: Normocephalic, atraumatic, bilateral external ears normal, oropharynx moist, no oral exudates, nose normal. [] Eyes: PERRLA, EOMI, conjunctiva normal, no discharge. [] Skin: left forearm 1 cm fluctuant abscess c surrounding erythema Neurologic: Alert and oriented X 3, normal motor function, normal sensory function, no focal deficits noted. [] Psychologic: Affect normal, judgement normal, mood normal. [] EKG EKG [] Radiology/Procedures Radiology/Procedures [left forearm abscess I&D, 1 ml lidocaine 1%, cleaned c betadine, abscess probed and loculations broke up, small amount purulent drainage, clean dry dressing placed] Heart Score Risk Factors: Risk Factors: DM, Current or recent (<one month) smoker, HTN, HLP, family history of CAD, obesity. Risk Scores: Risk Factors: DM, Current or recent (<one month) smoker, HTN, HLP, family history of CAD, obesity. Course & Med Decision Making Course & Med Decision Making Pertinent Labs and Imaging studies reviewed. (See chart for details) [keep clean and dry, f/u c pcp in 2-3 days, finish Clindamycin as prescribed] Dragon Disclaimer Dragon Disclaimer This electronic medical record was generated, in whole or in part, using a voice recognition dictation system. Departure Departure: Impression: Primary Impression: Abscess Disposition: 01 DC HOME SELF CARE/HOMELESS Condition: GOOD Referrals: RODRI MACE (PCP) Patient Instructions: Abscess Additional Instructions: finish Clindamycin as previously prescribed BI LATHAM [employer] Mar 04, 2020 14:03
[2020-03-04 14:14] VITALS: BP 120/59
[2020-03-04] MEDS ORDERED: LIDOCAINE 1% PF 30 ML VIAL. INJ ONE (14:15)
== END 2020-03-04 15:01 | disposition home or self-care (01) ==
LOC: ER 13:49
DX: L02.414 Cutaneous abscess of left upper limb (principal); J45.909 Unspecified asthma, uncomplicated; K21.9 Gastro-esophageal reflux disease without esophagitis; F17.210 Nicotine dependence, cigarettes, uncomplicated
CPT/HCPCS: 10060; 99282; J2001

== ENCOUNTER 2020-03-21 15:43 | Emergency (ER) | payer OTHER ==
[~2020-03-21] VITALS: Ht 167.6 cm; Wt 103.5 kg
[2020-03-21 15:43] VITALS: BP 126/63
--- NOTE | 2020-03-21 15:48 | PHYS DOC ---
Past History Past Medical History: Asthma, Gallstones, GERD Past Surgical History: Appendectomy, Cholecystectomy, Tonsillectomy, Other Additional Past Surgical Histo: abd hernia repair Smoking: Cigarettes Alcohol Use: None Drug Use: None Adult General Chief Complaint Chief Complaint: FOOT INJURY PAIN HPI HPI Patient is a 24-year-old female complains of left foot pain after she dropped a guitar amp onto her non-shoed foot approximately 30 minutes prior to arrival. Patient reports a 10/10 on a 1-10 pain scale, states she took 400 mg of ibu profen immediately after the injury which has not helped her pain. Patient denies any other injuries or physical complaints. Patient reports that she would like to have a work excuse for the next 2 days. Review of Systems Review of Systems 14 body systems of review of systems have been reviewed. See HPI for pertinent positives and negative responses, otherwise all other systems are negative, nonpertinent or noncontributory. Current Medications Current Medications See nursing documentation for current med list. Allergies Allergies Allergies Coded Allergies Type Severity Reaction Last Updated Verified No Known Drug Allergies 03/25/14 No Physical Exam Physical Exam Constitutional: Well developed, well nourished, no acute distress, non-toxic appearance. HENT: Normocephalic, atraumatic, bilateral external ears normal, oropharynx moist, no oral exudates, nose normal. Eyes: PERRLA, EOMI, conjunctiva normal, no discharge. Neck: Normal range of motion, no tenderness, supple, no stridor. Cardiovascular:Heart rate regular rhythm, no murmur Lungs & Thorax: Bilateral breath sounds clear to auscultation Abdomen: Bowel sounds normal, soft, no tenderness, no masses, no pulsatile masses. Skin: Warm, dry, no erythema, no rash. Back: No tenderness, no CVA tenderness. Extremities: No tenderness, no cyanosis, no clubbing, ROM intact, no edema. Left foot pain to palpation ventral surfaces, no deformity, no swelling, no cretipus, no contusions noted, 2+ dorsalis pedis and posterior tibial pulses, distal cap refill <2 sec. Neurologic: Alert and oriented X 3, normal motor function, normal sensory function, no focal deficits noted. Psychologic: Affect normal, judgement normal, mood normal. EKG EKG [] Radiology/Procedures Radiology/Procedures []STATUS: REG ERORD. PHYSICIAN: JANA SMITH APRN REASON: BLUNT TRAUMA PROCEDURE: FOOT LEFT 3V Left foot 3 views: Reason for examination: Blunt trauma. Comparison is made to previous study dated 03/01/2020. No acute fracture or dislocation is evident. The bone density is normal. No abnormal periosteal reaction is seen. Joint spaces are maintained. IMPRESSION: No acute abnormality evident at the left foot. Electronically signed by: Rosangela Khan MD (03/21/2020 4:14 PM) [id number] DICTATED AND SIGNED BY: ROSANGELA KHAN MD DATE: 03/21/20 1614 CC: JANA SMITH APRN; DORA CELESTIN DO; RODRI MACE ~MTH0 0 Heart Score Risk Factors: Risk Factors: DM, Current or recent (<one month) smoker, HTN, HLP, family history of CAD, obesity. Risk Scores: Risk Factors: DM, Current or recent (<one month) smoker, HTN, HLP, family history of CAD, obesity. Course & Med Decision Making Course & Med Decision Making Pertinent Labs and Imaging studies reviewed. (See chart for details) 24yo female, vitals reviewed, physical exam unremarkable, x-ray imaging negative for acute process or fracture per house radiologist interpretation, pt given one 5/325 norco in ED, re-exam pt was reporting less pain, ED nurse applies ice pack, tamiko wrap, postop shoe. Pt gave verbal understanding of D/C home instructions, Rx prescriptiosns, RTER precautions, work excuse two days, pt had no other questions or concerns, home without incident. Dx, Left foot contusion, left foot pain, unlikely occult Fx or osseous infectious process or compartment syndrome Dragon Disclaimer Dragon Disclaimer This electronic medical record was generated, in whole or in part, using a voice recognition dictation system. Departure Departure: Impression: Primary Impression: Left foot pain Additional Impression: Contusion of left foot Disposition: 01 DC HOME SELF CARE/HOMELESS Condition: IMPROVED Referrals: RODRI MACE (PCP) Patient Instructions: Elastic Bandage and RICE, RICE - Routine Care for Injuries Additional Instructions: Please take prescriptions as directed, use ice and elevation to the left foot and postop shoe for pain and discomfort, return to emergency department for worsening symptoms or other concerns, please see your primary care doctor soon for reevaluation of your left foot pain if it continues on longer than the next 5 or so days. You will be given a work excuse for the next 2 days. EMERGENCY DEPARTMENT GENERAL DISCHARGE INSTRUCTIONS Thank you for coming to [facility] (ED) today and trusting us with you care. We trust that you had a positivie experience in our Emergency Department. If you wish to speak to the department management, you may call the director at [phone]. YOUR FOLLOW UP INSTRUCTIONS ARE FOLLOWS: 1. Do you have a private Doctor? If you do not have a private doctor, please ask for a resource list of physicians or clinics that may be able to assist you with follow up care. 2. The Emergency Physician has interpreted your x-rays. The X-Ray specialist will also review them. If there is a change in the findings, you will be notified in 48 hours when at all possible. 3. A lab test or culture has been done, your results will be reviewed and you will be notified if you need a change in treatment. ADDITIONAL INSTRUCTIONS AND INFORMATION: 1. Your care today has been supervised by a physician who is specially trained in emergency care. Many problems require more than one evaluation for a complete diagnosis and treatment. We recommend that you schedule your follow up appointment as recommended to ensure complete treatment of you illness or injury. If you are unable to obtain follow up care and continue to have a problem, or if your condition worsens, we recommend that you return to the ED. 2. We are not able to safely determine your condition over the phone nor are we able to give sound medical advice over the phone. For these safety reasons, if you call for medical advice we will ask you to come to the ED for further evaluation. 3. If you have any questions regarding these discharge instructions please call the ED at [phone]. SAFETY INFORMATION: In the interest of safety, wellness, and injury prevention; we encourage you to wear your sealbelt, if you smoke; quite smoking, and we encourage family to use a protective helmet for bicycling and other sporting events that present an increased risk for head injury. IF YOUR SYMPTOMS WORSEN OR NEW SYMPTOMS DEVELOP, OR YOU HAVE CONCERNS ABOUT YOUR CONDITION; OR IF YOUR CONDITION WORSENS WHILE YOU ARE WAITING FOR YOUR FOLLOW UP APPOINTMENT; EITHER CONTACT YOUR PRIMARY CARE DOCTOR, THE PHYSICIAN WHOSE NAME AND NUMBER YOU WERE Erik PICKETT, OR RETURN TO THE ED IMMEDIATELY. Scripts Ibuprofen (IBUPROFEN) 200 Mg Tablet 600 MG PO QIDPRN PRN for PAIN, #15 TAB 0 Refills Prov: JANA SMITH APRN 03/21/20 Problem Qualifiers Additional Impression: Contusion of left foot Encounter type: initial encounter Qualified Codes: S90.32XA - Contusion of left foot, initial encounter JANA SMITH APRN Mar 21, 2020 15:48
[2020-03-21] MEDS ORDERED: HYDROcodone/APAP 5/325MG 1 TAB TABLET PO ONE (16:00)
--- NOTE | 2020-03-21 16:17 | RAD ---
Left foot 3 views: Reason for examination: Blunt trauma. Comparison is made to previous study dated 03/01/2020. No acute fracture or dislocation is evident. The bone density is normal. No abnormal periosteal reaction is seen. Joint spaces are maintained. IMPRESSION: No acute abnormality evident at the left foot. Electronically signed by: Rosangela Raymond MD (03/21/2020 4:14 PM) [id number]
[2020-03-21] MEDS ORDERED: IBUP-1673 PO (16:47)
== END 2020-03-21 16:50 | disposition home or self-care (01) ==
LOC: ER 15:43
DX: S90.32XA Contusion of left foot, initial encounter (principal); J45.909 Unspecified asthma, uncomplicated; K21.9 Gastro-esophageal reflux disease without esophagitis; F17.210 Nicotine dependence, cigarettes, uncomplicated; W20.8XXA Other cause of strike by thrown, projected or falling object, initial encounter; Y93.89 Activity, other specified; Y92.89 Other specified places as the place of occurrence of the external cause; Y99.8 Other external cause status
CPT/HCPCS: 73630; 99283

== ENCOUNTER 2020-08-09 16:05 | Emergency (ER) | payer OTHER ==
[~2020-08-09] VITALS: Ht 167.6 cm; Wt 102.0 kg
[~2020-08-09 16:05] MED LIST changes: -CLIN150C14 PO; +CLIN150C15 PO; +IBUP-1673 PO
--- NOTE | 2020-08-09 16:52 | PHYS DOC ---
Past History Past Medical History: Anemia, Asthma, Gallstones, GERD (CHUCK ORTIZ APRN) Past Surgical History: Appendectomy, Cholecystectomy, Tonsillectomy, Other Additional Past Surgical Histo: abd hernia repair (CHUCK ORTIZ APRN) Smoking: Cigarettes Alcohol Use: Occasionally Drug Use: None (CHUCK ORTIZ APRN) General Adult EDM: Chief Complaint: MULTIPLE COMPLAINTS HPI: HPI: Patient is a 25-year-old female who presents with nausea, abdominal pain, weakness and chest pain. Patient states that she supposed to have a upper and lower scope next month due to vomiting and blood and blood in her stool. Patient states that abdominal pain has gotten worse in the last 2 days. Patient also reports a syncopal episode this morning. Abdominal pain is a constant, cr amping. Patient has had to have blood transfusions in the past. Patient took ibuprofen prior to arrival for pain. Patient has history of GI bleeding, gastritis, asthma (CHUCK ORTIZ APRN) Review of Systems: Review of Systems: Constitutional: Denies fever or chills Eyes: Denies change in visual acuity HENT: Denies nasal congestion or sore throat Respiratory: Denies cough or shortness of breath Cardiovascular: Reports chest pain, denies edema GI: Reports generalized abdominal pain, nausea, vomiting, bloody stools and diarrhea : Denies dysuria Musculoskeletal: Denies back pain or joint pain Integument: Denies rash Neurologic: Reports headache. Denies focal weakness or sensory changes Endocrine: Denies polyuria or polydipsia Lymphatic: Denies swollen glands Psychiatric: Denies depression or anxiety (CHUCK ORTIZ APRN) Allergies: Allergies: Allergies Coded Allergies Type Severity Reaction Last Updated Verified No Known Drug Allergies 08/09/20 No (CHUCK ORTIZ APRN) Physical Exam: PE: Constitutional: Well developed, well nourished, no acute distress, non-toxic appearance. [] HENT: Normocephalic, atraumatic, bilateral external ears normal, oropharynx moist, no oral exudates, nose normal. [] Eyes: PERRLA, EOMI, conjunctiva normal, no discharge. [] Neck: Normal range of motion, no tenderness, supple, no stridor. [] Cardiovascular:Heart rate regular rhythm, no murmur [] Lungs & Thorax: Bilateral breath sounds clear to auscultation [] Abdomen: Bowel sounds normal, soft, generalized tenderness Skin: Warm, dry, no erythema, no rash. Back: No tenderness, no CVA tenderness. Extremities: No tenderness, no cyanosis, no clubbing, ROM intact, no edema. Neurologic: Alert and oriented X 3, normal motor function, normal sensory functi on, no focal deficits noted. Psychologic: Affect normal, judgement normal, mood normal. (CHUCK ORTIZ APRN) Current Patient Data: Vital Signs: Vital Signs Date Time Temp Pulse Resp B/P (MAP) Pulse Ox O2 Delivery O2 Flow Rate FiO2 08/09/20 16:15 98.5 72 16 154/63 (93) 99 (CHUCK ORTIZ APRN) EKG: EKG: Sinus rhythm. Heart rate 73 bpm. [] (CHUCK ORTIZ APRN) Radiology/Procedures: Radiology/Procedures: []EXAM: CHEST 1 VIEW History: Chest pain COMPARISON: 02/08/2020. TECHNIQUE: Single portable radiograph of the chest FINDINGS: The cardiac silhouette is unremarkable. The lungs are clear bila terally. The costophrenic sulci are clear and well demarcated. IMPRESSION: No radiographic evidence of an acute cardiopulmonary process. Electronically signed by: Renan Almeida MD (08/09/2020 5:30 PM) [id number] EXAM: CT Abdomen and Pelvis without IV contrast CLINICAL HISTORY: Abdominal pain COMPARISON: 02/08/2020 04/16/2019 TECHNIQUE: Helical CT of the abdomen and pelvis without intravenous contrast. Axial, coronal and sagittal reformatted images were generated. PQRS compliance statement - One or more of the following individualized dose reduction techniques were utilized for this study: 1. Automated exposure control 2. Adjustment of the mA and/or kV according to patient size 3. Use of iterative reconstruction technique FINDINGS: Lack of intravenous contrast limits evaluation of solid organs, vasculature, and lymph nodes. Lower chest: Lung bases are clear. Abdomen and Pelvis: No focal liver lesion. Cholecystectomy clips are seen. No biliary ductal dilatation. Pancreas, spleen, adrenal glands are normal in appearance. No focal renal lesion. No hydronephrosis. No hydroureter. Mild bladder wall thickening may be seen with cystitis. There has been an appendectomy. Moderate colonic stool content is seen. No small or large bowel dilatation. No bowel obstruction. No abdominal or pelvic ascites. No abdominal or pelvic lymphadenopathy. Bones: Sclerotic focus left iliac bone likely bone island. No aggressive osseous lesion is seen. IMPRESSION: 1. Mild bladder wall thickening may be seen with cystitis. 2. No definite renal tract calculus. No hydronephrosis or hydroureter. 3. Moderate colonic stool content. No bowel obstruction. Electronically signed by: Tolu Patterson MD (08/09/2020 5:30 PM) [facility] (CHUCK ORTIZ APRN) Heart Score: C/O Chest Pain: Yes HEART Score for Chest Pain: HEART Score for Chest Pain Response (Comments) Value History Slighlty/Non-Suspicious 0 Age < 45 0 Risk Factors No Risk Factors 0 Total 0 Risk Factors: Risk Factors: DM, Current or recent (<one month) smoker, HTN, HLP, family history of CAD, obesity. Risk Scores: Score 0 - 3: 2.5% MACE over next 6 weeks - Discharge Home Score 4 - 6: 20.3% MACE over next 6 weeks - Admit for Clinical Observation Score 7 - 10: 72.7% MACE over next 6 weeks - Early Invasive Strategies (CHUCK ORTIZ APRN) Course & Med Decision Making: Course & Med Decision Making Pertinent Labs and Imaging studies reviewed. (See chart for details) [] Patient presents to emergency room for blood in her stool and emesis. Patient states that she has been dealing with GI issues for a few months and have EGD scheduled for the beginning of next month. Patient states symptoms have been worse for the last 2 days. Reporting weakness, dizziness, chest pain, cramping abdominal pain. Patient states she has been having 4-5, bloody, loose stools a day. Patient reports that she has had to have blood transfusions in the past. Patient states that she had a syncopal episode this morning. CT of abdomen and pelvis ordered to rule out acute abnormalities. Patient is requesting something for pain. Morphine and Zofran ordered. EKG ordered to rule out any cardiac arrhythmias. EKG shows sinus rhythm. Heart rate 73 bpm. Chest x-ray was negative for any acute abnormalities. CT of abdomen pelvis are negative.Labs unremarkable. Hemoglobin 10.1. Instructed patient to follow-up with GI. Patient has EGD and colonoscopy scheduled for the beginning of next month. Sending patient home with Zofran for nausea. Patient needs to follow-up with PCP for further pain management. Patient to return to emergency room with worsening symptoms or concerns. Patient is alert and oriented x4. Patient is hemodynamically stable. Patient symptoms have improved after medication administration. Patient is appreciative and okay with discharge plan. (CHUCK ORTIZ APRN) Dragon Disclaimer: Dragon Disclaimer: This electronic medical record was generated, in whole or in part, using a voice recognition dictation system. (CHUCK ORTIZ APRN) Departure Departure: Impression: Primary Impression: Abdominal pain Qualified Codes: R10.84 - Generalized abdominal pain Disposition: HOME / SELF CARE / HOMELESS Condition: STABLE Referrals: PRATEEK REDDY APRN (PCP) Patient Instructions: Abdominal Pain Additional Instructions: You were seen in the emergency room for abdominal pain, vomiting blood and blood in your stool. Please keep your appointment for the beginning of next month with your GI doctor for further evaluation. I am sending you home with Zofran for nausea. Please follow-up with your PCP for further pain management. Return to emergency room with worsening symptoms or concerns. EMERGENCY DEPARTMENT GENERAL DISCHARGE INSTRUCTIONS Thank you for coming to [facility] (ED) today and trusting us with you care. We trust that you had a positivie experience in our Emergency Department. If you wish to speak to the department management, you may call the director at [phone]. YOUR FOLLOW UP INSTRUCTIONS ARE FOLLOWS: 1. Do you have a private Doctor? If you do not have a private doctor, please ask for a resource list of physicians or clinics that may be able to assist you with follow up care. 2. The Emergency Physician has interpreted your x-rays. The X-Ray specialist will also review them. If there is a change in the findings, you will be notified in 48 hours when at all possible. 3. A lab test or culture has been done, your results will be reviewed and you will be notified if you need a change in treatment. ADDITIONAL INSTRUCTIONS AND INFORMATION: 1. Your care today has been supervised by a physician who is specially trained in emergency care. Many problems require more than one evaluation for a complete diagnosis and treatment. We recommend that you schedule your follow up appointment as recommended to ensure complete treatment of you illness or injury. If you are unable to obtain follow up care and continue to have a problem, or if your condition worsens, we recommend that you return to the ED. 2. We are not able to safely determine your condition over the phone nor are we able to give sound medical advice over the phone. For these safety reasons, if you call for medical advice we will ask you to come to the ED for further evaluation. 3. If you have any questions regarding these discharge instructions please call the ED at [phone]. SAFETY INFORMATION: In the interest of safety, wellness, and injury prevention; we encourage you to wear your sealbelt, if you smoke; quite smoking, and we encourage family to use a protective helmet for bicycling and other sporting events that present an increased risk for head injury. IF YOUR SYMPTOMS WORSEN OR NEW SYMPTOMS DEVELOP, OR YOU HAVE CONCERNS ABOUT YOUR CONDITION; OR IF YOUR CONDITION WORSENS WHILE YOU ARE WAITING FOR YOUR FOLLOW UP APPOINTMENT; EITHER CONTACT YOUR PRIMARY CARE DOCTOR, THE PHYSICIAN WHOSE NAME AND NUMBER YOU WERE GIVEN, OR RETURN TO THE ED IMMEDIATELY. Scripts Ondansetron Hcl (ZOFRAN) 4 Mg Tablet 4 MG PO TID PRN PRN for NAUSEA, #9 TAB Prov: CHUCK ORTIZ APRN 08/09/20 Attending Signature Attending Signature I have reviewed the PA/PATHOLOGY TEACHER's note and plan of care. I was available for consultation as needed during the patient's visit in the emergency department. I agree with the clinical impression, plan, and disposition. (JANA POWERS DO) CHUCK ORTIZ APRN, Apr 26, 2021 16:52 JANA POWERS DO Aug 09, 2020 20:24
[2020-08-09] MEDS ORDERED: IV NORMAL SALINE 1,000ML 1,000 ML IV ONE (17:00)
[2020-08-09] MEDS ORDERED: ONDANSETRON PF 4 MG/2 ML VIAL. IVP ONE ×2 (17:00→19:30)
[2020-08-09] MEDS ORDERED: MORPHINE SULFATE 4 MG/ML DISP.SYRIN. IV ONE ×2 (17:00→19:30)
--- NOTE | 2020-08-09 17:10 | EKG ---
[address] [address] Test Date: 2020-08-09 Test Time: 17:00:53 Pat Name: HARIS ORTA Department: Room: Gender: F Medicaid Nurse: ELAINA : 1995 Requested By: CHUCK ORTIZ Order Number: [id number] Reading MD: Measurements Intervals [place] Rate: 73 P: 52 NH: 160 QRS: 39 QRSD: 96 T: 34 QT: 368 QTc: 409 Interpretive Statements SINUS RHYTHM OTHERWISE NORMAL ECG RI6.02 No previous ECG available for comparison
[2020-08-09 17:17] LABS: BASO # 0.1 x10^3/uL (0.0-0.2); BASO % 1 % (0-3); EOS # 0.1 x10^3/uL (0.0-0.7); EOS % 1 % (0-3); HEMATOCRIT 32.4 % (36.0-47.0); HEMOGLOBIN 10.1 g/dL (12.0-15.5); LYMPH # 2.6 x10^3/uL (1.0-4.8); LYMPH % 25 % (24-48); MEAN CORPUSCULAR HEMOGLOBIN 24 pg (25-35); MEAN CORPUSCULAR HGB CONC 31 g/dL (31-37); MEAN CORPUSCULAR VOLUME 78 fL (79-100); MONO # 0.9 x10^3/uL (0.0-1.1); MONO % 8 % (0-9); NEUT # 6.8 x10^3uL (1.8-7.7); NEUT % 65 % (31-73); PLATELET COUNT 239 x10^3/uL (140-400); RED BLOOD COUNT 4.18 x10^6/uL (3.50-5.40); RED CELL DISTRIBUTION WIDTH 18.5 % (11.5-14.5); WHITE BLOOD COUNT 10.4 x10^3/uL (4.0-11.0)
[2020-08-09 17:26] LABS: CALCIUM 8.7 mg/dL (8.5-10.1); CREATININE 1.1 mg/dL (0.6-1.0); GFR 74.5; POTASSIUM 4.1 mmol/L (3.5-5.1)
[2020-08-09 17:30] LABS: CLARITY,URINE BLOODY; COLOR,URINE RED
[2020-08-09 17:31] LABS: BACTERIA,URINE 0 /HPF (0-FEW); RBC,URINE TNTC /HPF (0-2); WBC,URINE 0 /HPF (0-4)
[2020-08-09 17:32] LABS: ALBUMIN 3.7 g/dL (3.4-5.0); TOTAL BILIRUBIN 0.2 mg/dL (0.2-1.0); TOTAL PROTEIN 7.4 g/dL (6.4-8.2)
--- NOTE | 2020-08-09 17:32 | RAD ---
EXAM: CHEST 1 VIEW History: Chest pain COMPARISON: 02/08/2020. TECHNIQUE: Single portable radiograph of the chest FINDINGS: The cardiac silhouette is unremarkable. The lungs are clear bilaterally. The costophrenic sulci are clear and well demarcated. IMPRESSION: No radiographic evidence of an acute cardiopulmonary process. Electronically signed by: Renan Almeida MD (08/09/2020 5:30 PM) [id number]
--- NOTE | 2020-08-09 17:33 | RAD ---
EXAM: CT Abdomen and Pelvis without IV contrast CLINICAL HISTORY: Abdominal pain COMPARISON: 02/08/2020 04/16/2019 TECHNIQUE: Helical CT of the abdomen and pelvis without intravenous contrast. Axial, coronal and sagi ttal reformatted images were generated. PQRS compliance statement - One or more of the following individualized dose reduction techniques wer e utilized for this study: 1. Automated exposure control 2. Adjustment of the mA and/or kV according to patient size 3. Use of iterative reconstruction technique FINDINGS: Lack of intravenous contrast limits evaluation of solid organs, vasculature, and lymph nodes. Lower chest: Lung bases are clear. Abdomen and Pelvis: No focal liver lesion. Cholecystectomy clips are seen. No biliary ductal dilatation. Pancreas, spleen , adrenal glands are normal in appearance. No focal renal lesion. No hydronephrosis. No hydroureter. Mild bladder wall thickening may be seen with cystitis. There has been an appendectomy. Moderate colonic stool content is seen. No small or large bowel dilat ation. No bowel obstruction. No abdominal or pelvic ascites. No abdominal or pelvic lymphadenopathy. Bones: Sclerotic focus left iliac bone likely bone island. No aggressive osseous lesion is seen. IMPRESSION: 1. Mild bladder wall thickening may be seen with cystitis. 2. No definite renal tract calculus. No hydronephrosis or hydroureter. 3. Moderate colonic stool content. No bowel obstruction. Electronically signed by: Tolu Patterson MD (08/09/2020 5:30 PM) JORGE
[2020-08-09] MEDS ORDERED: ONDA4TAB7 PO (18:29)
[2020-08-09 19:00] VITALS: BP 120/72
[2020-08-10] MEDS ORDERED: HYDR-2759 PO (19:59)
== END 2020-08-09 19:31 | disposition home or self-care (01) ==
LOC: ER 16:05
DX: R10.84 Generalized abdominal pain (principal); R07.89 Other chest pain; R53.1 Weakness; J45.909 Unspecified asthma, uncomplicated; K21.9 Gastro-esophageal reflux disease without esophagitis; F17.210 Nicotine dependence, cigarettes, uncomplicated
CPT/HCPCS: 36415; 71045; 74176; 80053; 81001; 81025; 85025; 86850; 86900; 86901; 93005; 96361; 96374; 96375; 96376; 99285; J2270; J2405; J7030

== ENCOUNTER 2020-08-10 17:01 | Emergency (ER) | payer OTHER ==
[~2020-08-10] VITALS: Ht 167.6 cm; Wt 102.0 kg
[~2020-08-10 17:01] MED LIST changes: +ONDA4TAB7 PO
[2020-08-10] MEDS ORDERED: HYDR-2759 PO (19:59)
[2020-08-10 20:10] VITALS: BP 123/64
== END 2020-08-10 20:10 | disposition home or self-care (01) ==
LOC: ER 17:01
DX: K62.5 Hemorrhage of anus and rectum (principal); D64.9 Anemia, unspecified; R10.32 Left lower quadrant pain; R10.31 Right lower quadrant pain; R11.2 Nausea with vomiting, unspecified; J45.909 Unspecified asthma, uncomplicated; K21.9 Gastro-esophageal reflux disease without esophagitis; F17.210 Nicotine dependence, cigarettes, uncomplicated; Z90.89 Acquired absence of other organs; Z90.49 Acquired absence of other specified parts of digestive tract; W18.39XA Other fall on same level, initial encounter; Y93.89 Activity, other specified; Y92.89 Other specified places as the place of occurrence of the external cause; Y99.8 Other external cause status
CPT/HCPCS: 36415; 71045; 80053; 82274; 85025; 93005; 99285

== ENCOUNTER 2020-08-12 10:24 | Emergency (ER) | payer OTHER ==
[~2020-08-12] VITALS: Ht 167.6 cm; Wt 102.0 kg
[~2020-08-12 10:24] MED LIST changes: +HYDR-2759 PO
[2020-08-12 11:04] VITALS: BP 115/71
--- NOTE | 2020-08-12 11:25 | PHYS DOC ---
Past History Past Medical History: Anemia, Asthma, Gallstones, GERD, Other Additional Past Medical Histor: chronic GI bleed Past Surgical History: Appendectomy, Cholecystectomy, Tonsillectomy, Other Additional Past Surgical Histo: abd hernia repair Smoking: Cigarettes Alcohol Use: Occasionally Drug Use: None General Adult EDM: Chief Complaint: DIZZY/LIGHT HEADED HPI: HPI: Patient is a 25-year-old female coming in for 30 ER visit this week. Last seen 2 days ago. Patient states she is coming today because she is feeling increased chest pain, lightheadedness, and had a syncopal episode yesterday. Patient states she was washing dishes at her sink when she fell to the ground. Denies any head pain or trauma. Patient has a history of GI bleeding and anemia. Hemoglobin this week is 10 to down from 10.1 3 days ago to 9.5 2 days ago. Patient states she still is having blood with her bowel movements. Was scheduled to get iron infusion per her primary care provider but was unable to get due to prior authorization. Spoke with her instructor painting Dr. Nolasco who has been given for a scope but when she called the office back she was told he was out of town for the week. States she stopped taking NSAIDs a few days ago. Review of Systems: Review of Systems: All other systems within normal limits except for as noted in the HPI Allergies: Allergies: Allergies Coded Allergies Type Severity Reaction Last Updated Verified No Known Drug Allergies 08/09/20 No Physical Exam: PE: Constitutional: Well developed, well nourished, no acute distress, non-toxic appearance. [] HENT: Normocephalic, atraumatic, bilateral external ears normal, nose normal. [] Eyes: PERRLA, conjunctiva normal, no discharge. [] Neck: No rigidity, supple, no stridor. [] Cardiovascular: Regular rate and rhythm, brisk cap refill [] Lungs & Thorax: Non labored symmetric respirations, no tachypnea or respiratory distress [] Abdomen: Soft, nondistended. Skin: Warm, dry, no erythema, no rash. [] Back: Unremarkable Extremities: No deformities, range of motion grossly intact, no lower extremity edema [] Neurologic: Alert and oriented X 3, no focal deficits noted. [] Psychologic: Affect normal, judgement normal, mood normal. [] Current Patient Data: Vital Signs: Vital Signs Date Time Temp Pulse Resp B/P (MAP) Pulse Ox O2 Delivery O2 Flow Rate FiO2 08/12/20 11:04 97.9 73 18 115/71 (86) 99 Room Air EKG: EKG: Sinus rhythm, heart rate 60 bpm, normal axis, no ST elevation or depression, no ectopy. [] Radiology/Procedures: Radiology/Procedures: [] Heart Score: C/O Chest Pain: Yes HEART Score for Chest Pain: HEART Score for Chest Pain Response (Comments) Value History Slighlty/Non-Suspicious 0 ECG Normal 0 Age < 45 0 Risk Factors No Risk Factors 0 Troponin < Normal Limit 0 Total 0 Risk Factors: Risk Factors: DM, Current or recent (<one month) smoker, HTN, HLP, family history of CAD, obesity. Risk Scores: Score 0 - 3: 2.5% MACE over next 6 weeks - Discharge Home Score 4 - 6: 20.3% MACE over next 6 weeks - Admit for Clinical Observation Score 7 - 10: 72.7% MACE over next 6 weeks - Early Invasive Strategies Course & Med Decision Making: Course & Med Decision Making Patient states she can follow-up with the GI doctor for initial evaluation this afternoon. 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 Chase Disclaimer: Chase Disclaimer: This electronic medical record was generated, in whole or in part, using a voice recognition dictation system. Departure Departure: Impression: Primary Impression: Postural dizziness with presyncope Disposition: HOME / SELF CARE / HOMELESS Condition: STABLE Referrals: [facility] [place] (PCP) Patient Instructions: Anemia, FAQs Scripts Ascorbic Acid (VITAMIN C) 100 Mg Tablet 1 TAB PO DAILY for suppliment for 30 Days, #30 TAB 0 Refills Prov: ANN MA MD 08/12/20 Omeprazole (OMEPRAZOLE) 40 Mg Capsule. 1 CAP PO DAILY for antacid for 30 Days, #30 CAP 3 Refills Prov: ANN MA MD 08/12/20 ANN MA MD Aug 12, 2020 11:25
[2020-08-12 11:54] LABS: BASO # 0.1 x10^3/uL (0.0-0.2); BASO % 1 % (0-3); EOS % 0 % (0-3); HEMATOCRIT 31.2 % (36.0-47.0); HEMOGLOBIN 9.6 g/dL (12.0-15.5); LYMPH # 1.8 x10^3/uL (1.0-4.8); LYMPH % 22 % (24-48); MEAN CORPUSCULAR HEMOGLOBIN 24 pg (25-35); MEAN CORPUSCULAR HGB CONC 31 g/dL (31-37); MEAN CORPUSCULAR VOLUME 78 fL (79-100); MONO # 0.6 x10^3/uL (0.0-1.1); MONO % 7 % (0-9); NEUT # 5.9 x10^3uL (1.8-7.7); NEUT % 71 % (31-73); PLATELET COUNT 246 x10^3/uL (140-400); RED BLOOD COUNT 3.98 x10^6/uL (3.50-5.40); RED CELL DISTRIBUTION WIDTH 18.5 % (11.5-14.5); WHITE BLOOD COUNT 8.4 x10^3/uL (4.0-11.0)
[2020-08-12 12:02] LABS: CALCIUM 8.8 mg/dL (8.5-10.1); CREATININE 0.9 mg/dL (0.6-1.0); GFR 93.9; POTASSIUM 4.1 mmol/L (3.5-5.1)
[2020-08-12 12:15] LABS: ALBUMIN 3.8 g/dL (3.4-5.0); ALBUMIN/GLOBULIN RATIO 1.1 (1.0-1.7); MAGNESIUM 2.1 mg/dL (1.8-2.4); TOTAL BILIRUBIN 0.2 mg/dL (0.2-1.0); TOTAL PROTEIN 7.3 g/dL (6.4-8.2)
[2020-08-12 12:46] LABS: BILIRUBIN,URINE NEG (NEG); CLARITY,URINE CLEAR; COLOR,URINE YELLOW; GLUCOSE,URINE NEG (NEG)
[2020-08-12 12:47] LABS: BACTERIA,URINE 0 /HPF (0-FEW); NITRITE,URINE NEG (NEG); SQUAMOUS EPITHELIAL CELL,UR MANY /LPF; UROBILINOGEN,URINE 0.2 mg/dL (0.2 mg/dL); WBC,URINE OCC /HPF (0-4)
--- NOTE | 2020-08-12 12:55 | EKG ---
[address] [address] Test Date: 2020-08-12 Test Time: 11:15:15 Pat Name: HARIS ORTA Department: Room: Gender: F [employer]: ED3 : 1995 Requested By: ANN MA Order Number: [id number] Reading MD: Measurements Intervals [place] Rate: 69 P: 60 HI: 184 QRS: 28 QRSD: 84 T: 19 QT: 378 QTc: 411 Interpretive Statements SINUS RHYTHM NORMAL ECG RI6.02 No previous ECG available for comparison
[2020-08-12] MEDS ORDERED: ASCO100T4 PO (13:19)
[2020-08-12] MEDS ORDERED: OMEP40CA45 PO (13:19)
== END 2020-08-12 13:30 | disposition home or self-care (01) ==
LOC: ER 10:24
DX: R55 Syncope and collapse (principal); R42 Dizziness and giddiness; R07.89 Other chest pain; J45.909 Unspecified asthma, uncomplicated; K21.9 Gastro-esophageal reflux disease without esophagitis; F17.210 Nicotine dependence, cigarettes, uncomplicated; Z86.2 Personal history of diseases of the blood and blood-forming organs and certain disorders involving the immune mechanism
CPT/HCPCS: 36415; 80053; 81001; 83605; 83735; 83880; 84484; 85025; 85379; 93005; 99284

== ENCOUNTER → 2020-12-09 | Outpatient (CLI) | payer OTHER ==
[~2020-12-09] MED LIST changes: +ASCO100T4 PO; -CLIN150C15 PO; +CLIN150C16 PO; -DOXY100C2 PO; +DOXY100C3 PO; -OMEP40CA45 PO; +OMEP40CA7 PO
--- NOTE | 2020-12-09 20:58 | RAD ---
XR LT WRIST 3VIEWS DATE: 12/09/2020 7:49 PM INDICATION: PAIN COMPARISON: None. FINDINGS: Bones: There is no evidence of acute fracture or dislocation. Joints: The joint spaces are normal. Miscellaneous: None. IMPRESSION: No evidence of acute fracture. Electronically signed by: Osito Lofton MD (12/09/2020 8:56 PM) AMBER
== END ==
LOC: RAD 19:40
PROVIDERS: ATTEND Orthopaedic Surgery
DX: M25.532 Pain in left wrist (principal)
CPT/HCPCS: 73110

== ENCOUNTER 2021-03-25 01:45 | Emergency (ER) | payer OTHER ==
[~2021-03-25] VITALS: Ht 167.6 cm; Wt 110.3 kg
[~2021-03-25 01:45] MED LIST changes: -CYCL-331 PO; +CYCL10TA19 PO; +DICY20TA PO; -DICY20TA3 PO
[2021-03-25] MEDS ORDERED: IOHEXOL 300 MG/ML 75 ML VIAL. IV ONE (02:15)
[2021-03-25] MEDS ORDERED: ONDANSETRON PF 4 MG/2 ML VIAL. IVP ONE ×2 (02:15→04:15)
--- NOTE | 2021-03-25 02:16 | PHYS DOC ---
Past History Past Medical History: Anemia, Asthma, Gallstones, GERD, Other Additional Past Medical Histor: chronic GI bleed Past Surgical History: Appendectomy, Cholecystectomy, Tonsillectomy, Other Additional Past Surgical Histo: abd hernia repair Smoking: Cigarettes Alcohol Use: Occasionally Drug Use: None General Adult EDM: Chief Complaint: PELVIC PAIN HPI: HPI: Patient is a 22-year-old female coming in for suprapubic vaginal pain after intercourse. Patient denies any rough intercourse. States it started about 4 hours prior to arrival. States describes the pain as to pubic getting worse with movement and that there is pressure in her rectum. Denies any vaginal bleeding or discharge. Patient states she is monogamous with and is not currently taking control. Patient has a history of ruptured ovarian cyst that felt similar. Has a history of appendectomy and cholecystectomy Review of Systems: Review of Systems: All other systems within normal limits except for as noted in the HPI Allergies: Allergies: Allergies Coded Allergies Type Severity Reaction Last Updated Verified No Known Drug Allergies 08/09/20 No Physical Exam: PE: Constitutional: Well developed, well nourished, no acute distress, non-toxic appearance. [] HENT: Normocephalic, atraumatic, bilateral external ears normal, nose normal. [] Eyes: PERRLA, conjunctiva normal, no discharge. [] Neck: No rigidity, supple, no stridor. [] Cardiovascular: Regular rate and rhythm, brisk cap refill [] Lungs & Thorax: Non labored symmetric respirations, no tachypnea or respiratory distress [] Abdomen: Soft, nondistended bilateral lower abdominal pain worse on right, guarding : Normal external vagina, scant amount of white discharge, no ecchymosis, no lacerations. Skin: Warm, dry, no erythema, no rash. [] Back: Unremarkable Extremities: No deformities, range of motion grossly intact, no lower extremity edema [] Neurologic: Alert and oriented X 3, no focal deficits noted. [] Psychologic: Affect normal, judgement normal, mood normal. [] Current Patient Data: Labs: RUN DATE: 03/25/21 [facility] *LIVE* PAGE 1 RUN TIME: 236 Specimen Inquiry PATIENT: HARIS ORTA ACCT: [id number] LOC: [facility] U: [id number] AGE/SX: 25/ ROOM: RE03/25/[address]: ANN MA MD : 1995 BED: DIS: STATUS: REG ER TLOC: SPEC #: [id number] BERENICE: 03/25/21 STATUS: COMP REQ #: [id number] RECD: 03/25/[address]: ANN MA MD SOURCE: VAGINAL ENTR: 03/25/[address]: FEDE [place] SPDESC: ORDERED: WET PREP COMMENTS: Has specimen been collected/obtained? Y -- Procedure Result WET PREP Final YEAST NONE SEEN TRICHOMONAS NONE SEEN CLUE CELLS NONE SEEN WBCS OCCASIONAL RBCS NO RBCS SEEN SQUAMOUS EPS OCCASIONAL Vital Signs: Vital Signs Date Time Temp Pulse Resp B/P (MAP) Pulse Ox O2 Delivery O2 Flow Rate FiO2 03/25/21 01:58 98.0 108 16 131/84 (639) 98 EKG: EKG: [] Radiology/Procedures: Radiology/Procedures: [place] [address] IMAGING REPORT Signed PATIENT: HARIS ORTA ACCOUNT: [id number] : 1995 LOCATION: ER AGE: 25 SEX: F EXAM STATUS: REG ER ORD. PHYSICIAN: ANN MA MD REASON: OMNI 300,75ML IV.Abd pain after intercourse.HX OVARIAN CYSTS PROCEDURE: CT ABD PELV W/ IV CONTRST ONLY INDICATION: Reason: OMNI 300,75ML IV.Abd pain after intercourse.HX OVARIAN CYSTS / Spl. Instructions: / History: COMPARISON: August 09, 2020 TECHNIQUE: Axial CT images were obtained through the abdomen and pelvis with intravenous contrast. One or more of the following individualized dose reduction techniques were utilized for this examination: 1. Automated exposure control; 2. Adjustment of the mA and/or kV according to patient size; 3. Use of iterative reconstruction technique. FINDINGS: Vascular: No abdominal aortic aneurysm. Hepatobiliary: Postcholecystectomy changes. Suspected trace subcapsular fluid at the liver measuring up to about 5 mm in thickness. Pancreas: No peripancreatic edema. Spleen: Spleen unremarkable. Renal/Bladder: Heterogenous enhancement of the kidneys which could be from phase of contrast but limits evaluation of parenchyma. Low-density lesion in the righ t kidney. Most commonly benign in a patient of this age. No hydronephrosis. Gastrointestinal: Within the left adnexa there is a thick walled centrally low- density structure identified with the central low density component measuring 35 x 24 mm with a thick higher density rim. There are some edema and fluid identified including at right lower quadrant of the pelvis this fluid is seen tracking posterior to the right-side of colon as well. Mild degenerative changes spine. Pars defect L5 IMPRESSION: * Low-density structure seen in the left adnexa with a higher density rim. Differential considerations would include cystic lesion of the left ovary but would also correlate with infectious symptoms to ensure that this is not secondary to pelvic inflammatory disease/tubo-ovarian abscess. * There is some free fluid identified within the pelvis with a small amount tracking into the abdomen as well as some edema to the mesenteric fat at the right lower quadrant. * There is suspected trace amount of fluid at the right lobe of the liver medially which may be subcapsular in location. Given the very small size is difficult to tell if this is secondary to trace simple fluid or if there is a complex component from trace blood. Electronically signed by: Fran Bejarano MD (03/25/2021 3:43 AM) DESKTOP- [id number] DICTATED AND SIGNED BY: FRAN BEJARANO MD DATE: 03/25/21 0333 CC: ANN MA MD; FEDE [place] ~MTH0 0 [] Heart Score: C/O Chest Pain: No Risk Factors: Risk Factors: DM, Current or recent (<one month) smoker, HTN, HLP, family history of CAD, obesity. Risk Scores: Score 0 - 3: 2.5% MACE over next 6 weeks - Discharge Home Score 4 - 6: 20.3% MACE over next 6 weeks - Admit for Clinical Observation Score 7 - 10: 72.7% MACE over next 6 weeks - Early Invasive Strategies Course & Med Decision Making: Course & Med Decision Making Pertinent Labs and Imaging studies reviewed. (See chart for details) Patient still having significant amount of pain despite medications. Concern for infectious etiology due to white count. Patient was recently treated for bronchitis and only took 3 days of her steroids but states she has not had any steroids in [address] Coyne from [facility], has been is out of proportion for a simple ovarian cyst and patient has a white count will transfer to [facility] for IV antibiotics. [] Dragon Disclaimer: Dragon Disclaimer: This electronic medical record was generated, in whole or in part, using a voice recognition dictation system. Departure Departure: Impression: Primary Impression: TOA (tubo-ovarian abscess) Disposition: 02 SHORT TERM HOSPITAL Condition: STABLE Referrals: FEDE [place] (PCP) ANN MA MD Mar 25, 2021 02:16
[2021-03-25 02:38] LABS: BASO # 0.1 x10^3/uL (0.0-0.2); BASO % 0 % (0-3); EOS # 0.1 x10^3/uL (0.0-0.7); EOS % 1 % (0-3); HEMATOCRIT 32.4 % (36.0-47.0); HEMOGLOBIN 10.2 g/dL (12.0-15.5); LYMPH # 2.6 x10^3/uL (1.0-4.8); LYMPH % 13 % (24-48); MEAN CORPUSCULAR HEMOGLOBIN 26 pg (25-35); MEAN CORPUSCULAR HGB CONC 32 g/dL (31-37); MEAN CORPUSCULAR VOLUME 81 fL (79-100); MONO # 1.3 x10^3/uL (0.0-1.1); MONO % 7 % (0-9); NEUT # 15.9 x10^3uL (1.8-7.7); NEUT % 80 % (31-73); PLATELET COUNT 266 x10^3/uL (140-400); RED BLOOD COUNT 4.01 x10^6/uL (3.50-5.40); RED CELL DISTRIBUTION WIDTH 16.5 % (11.5-14.5)
[2021-03-25 02:44] LABS: CALCIUM 8.6 mg/dL (8.5-10.1); CREATININE 0.9 mg/dL (0.6-1.0); GFR 93.9; POTASSIUM 3.4 mmol/L (3.5-5.1)
[2021-03-25 02:50] LABS: ALBUMIN 3.7 g/dL (3.4-5.0); ALBUMIN/GLOBULIN RATIO 0.9 (1.0-1.7); TOTAL BILIRUBIN 0.2 mg/dL (0.2-1.0); TOTAL PROTEIN 7.8 g/dL (6.4-8.2)
[2021-03-25 03:00] LABS: % BANDS 2 % (0-9); % BASOS 1 % (0-3); % LYMPHS 29 % (24-48); % MONOS 2 % (0-10); % SEGS 66 % (35-66); PLT ESTIMATE ADEQUATE (ADEQUATE)
--- NOTE | 2021-03-25 03:46 | RAD ---
INDICATION: Reason: OMNI 300,75ML IV.Abd pain after intercourse.HX OVARIAN CYSTS / Spl. Instructions: / History: COMPARISON: August 09, 2020 TECHNIQUE: Axial CT images were obtained through the abdomen and pelvis with intravenous contrast. One or more of the following individualized dose reduction techniques were utilized for this examinat ion: 1. Automated exposure control; 2. Adjustment of the mA and/or kV according to patient size; 3 . Use of iterative reconstruction technique. FINDINGS: Vascular: No abdominal aortic aneurysm. Hepatobiliary: Postcholecystectomy changes. Suspected trace subcapsular fluid at the liver measuring up to about 5 mm in thickness. Pancreas: No peripancreatic edema. Spleen: Spleen unremarkable. Renal/Bladder: Heterogenous enhancement of the kidneys which could be from phase of contrast but limi ts evaluation of parenchyma. Low-density lesion in the right kidney. Most commonly benign in a patien t of this age. No hydronephrosis. Gastrointestinal: Within the left adnexa there is a thick walled centrally low-density structure iden tified with the central low density component measuring 35 x 24 mm with a thick higher density rim. There are some edema and fluid identified including at right lower quadrant of the pelvis this fluid is seen tracking posterior to the right-side of colon as well. Mild degenerative changes spine. Pars defect L5 IMPRESSION: * Low-density structure seen in the left adnexa with a higher density rim. Differential considerati ons would include cystic lesion of the left ovary but would also correlate with infectious symptoms t o ensure that this is not secondary to pelvic inflammatory disease/tubo-ovarian abscess. * There is some free fluid identified within the pelvis with a small amount tracking into the abdome n as well as some edema to the mesenteric fat at the right lower quadrant. * There is suspected trace amount of fluid at the right lobe of the liver medially which may be subc apsular in location. Given the very small size is difficult to tell if this is secondary to trace sim ple fluid or if there is a complex component from trace blood. Electronically signed by: Roc Rodríguez MD (03/25/2021 3:43 AM) [id number]
[2021-03-25] MEDS ORDERED: IV NORMAL SALINE 1,000ML 1,000 ML IV ONE ×2 (04:00→09:30)
[2021-03-25 04:20] LABS: BACTERIA,URINE 0 /HPF (0-FEW); BILIRUBIN,URINE NEG (NEG); CLARITY,URINE CLEAR; COLOR,URINE YELLOW; GLUCOSE,URINE NEG (NEG); NITRITE,URINE NEG (NEG); RBC,URINE OCC /HPF (0-2); SQUAMOUS EPITHELIAL CELL,UR OCC /LPF; UROBILINOGEN,URINE 0.2 mg/dL (0.2 mg/dL); WBC,URINE OCC /HPF (0-4)
[2021-03-25] MEDS ORDERED: MORPHINE SULFATE 4 MG/ML DISP.SYRIN. IV ONE ×2 (05:15→06:30)
[2021-03-25] MEDS ORDERED: cefTRIAXone SODIUM 1 GM VIAL ONE (05:27)
[2021-03-25] MEDS ORDERED: IV NORMAL SALINE 50ML 50 ML ONE (05:27)
[2021-03-25] MEDS ORDERED: DOXYCYCLINE HYCLATE 100 MG in IV DEXTROSE 5% 100 ML IV ONE (05:30)
[2021-03-25] MEDS ORDERED: metroNIDAZOLE 500 MG TABLET PO ONE (05:30)
[2021-03-25] MEDS ORDERED: IV DEXTROSE 5% 100 ML IV ONE (06:06)
[2021-03-25] MEDS ORDERED: DOXYCYCLINE HYCLATE 100 MG VIAL IV ONE (06:06)
[2021-03-25] MEDS ORDERED: HYDROmorphone PF 1 MG/ML DISP.SYRIN IVP ONE ×2 (09:30→16:45)
[2021-03-25] MEDS ORDERED: METOCLOPRAMIDE HCL 10 MG/2 ML VIAL. IVP ONE (09:45)
[2021-03-25 10:04] VITALS: BP 125/67
[2021-03-25] MEDS ORDERED: PROCHLORPERAZINE 10 MG/2 ML VIAL. IV ONE (12:30)
[2021-03-25] MEDS ORDERED: METR-34 PO (16:42)
[2021-03-25] MEDS ORDERED: DOXY100C3 PO (16:42)
[2021-03-25] MEDS ORDERED: HYDR-2763 PO (16:42)
[2021-03-28 16:07] LABS: CHLAMYDIA PROBE Negative (Negative)
== END 2021-03-25 17:17 | disposition home or self-care (01) ==
LOC: ER 01:45
DX: N70.93 Salpingitis and oophoritis, unspecified (principal); F17.210 Nicotine dependence, cigarettes, uncomplicated; J45.909 Unspecified asthma, uncomplicated; K21.9 Gastro-esophageal reflux disease without esophagitis; Z90.49 Acquired absence of other specified parts of digestive tract; Z20.822 Contact with and (suspected) exposure to COVID-19
CPT/HCPCS: 74177; 80053; 81001; 81025; 83690; 85007; 85025; 87426; 87491; 87591; 96361; 96365; 96367; 96375; 96376; 99285; J0696; J0780; J1170; J2060; J2270; J2405; J2765; J3010; J3490; J7030; Q0111; Q9967; U0003

== ENCOUNTER 2021-05-02 10:01 | Emergency (ER) | payer OTHER ==
[~2021-05-02] VITALS: Ht 167.6 cm; Wt 110.3 kg
[~2021-05-02 10:01] MED LIST changes: +HYDR-2763 PO; +METR-34 PO
--- NOTE | 2021-05-02 11:20 | RAD ---
XR CHEST 1V INDICATION: SOB, cough COMPARISON STUDY: 08/10/2020. FINDINGS: Lungs: Normal lung volume. No pulmonary mass or consolidation. The tracheobronchial tree and hilar st ructures are normal. Pleura: No pleural effusion or pneumothorax. Heart and Mediastinum: The cardiomediastinal silhouette is normal. The great vessels of the thorax ar e normal. Bones and Soft Tissues: The bones and soft tissues are within normal limits. IMPRESSION: No acute cardiopulmonary process. Electronically signed by: Osito Lofton MD (05/02/2021 11:17 AM) [id number]
--- NOTE | 2021-05-02 11:42 | PHYS DOC ---
Past History Past Medical History: Anemia, Asthma, Gallstones, GERD, Other Additional Past Medical Histor: chronic GI bleed (ALEA MURILLO) Past Surgical History: Appendectomy, Cholecystectomy, Tonsillectomy, Other Additional Past Surgical Histo: abd hernia repair (ALEA MURILLO) Smoking: Cigarettes Alcohol Use: Occasionally Drug Use: None (ALEA MURILLO) General Adult EDM: Chief Complaint: SHORTNESS OF BREATH HPI: HPI: Patient is a 25 year old female who presents with 9-day history of congestion, shortness of breath, cough, fever, body aches. Patient reports that the day before and 2 days before her symptoms began, she was exposed to COVID. She had a repeat exposure last week. Patient does have history of asthma, but her inhaler has been providing minimal symptom relief. Patient reports sharp, pleuritic chest pain on coughing and inspiration. She is not vaccinated against COVID-19. (ALEA MURILLO) Review of Systems: Review of Systems: ROS negative or noncontributory except as mentioned in HPI. (ALEA MURILLO) Allergies: Allergies: Allergies Coded Allergies Type Severity Reaction Last Updated Verified No Known Drug Allergies 08/09/20 No (ALEA MURILLO) Physical Exam: PE: Constitutional: Well developed, well nourished, no acute distress, non-toxic appearance. HENT: Normocephalic, atraumatic, bilateral external ears normal, oropharynx moist, no oral exudates, nose normal. Eyes: PERRLA, EOMI, conjunctiva normal, no discharge. Neck: Normal range of motion, no tenderness, supple, no stridor. Skin: Warm, dry, no erythema, no rash. Back: No step-off, no tenderness, no CVA tenderness. Extremities: No cyanosis, no clubbing, ROM intact, no edema. Neurologic: Alert and oriented x4, no focal deficits noted. (ALEA MURILLO) Current Patient Data: Vital Signs: Vital Signs Date Time Temp Pulse Resp B/P (MAP) Pulse Ox O2 Delivery O2 Flow Rate FiO2 05/02/21 10:18 98.2 83 20 122/80 (94) 98 Room Air (ALEA MURILLO) Heart Score: C/O Chest Pain: N/A (ALEA MURILLO) Course & Med Decision Making: Course & Med Decision Making Pertinent Labs and Imaging studies reviewed. (See chart for details) Patient is a 25-year-old female with history of asthma and cigarette smoker who presents with 9-day history of multiple symptoms concerning for viral illness, COVID-19 cannot be excluded. Work-up today will include chest x-ray, swabs for influenza A & B, COVID-19. Patient's COVID swab resulted positive. Patient was given supportive treatment measures instructions as well as return precautions. She understands and is agreeable to discharge plan. (ALEA MURILLO) Course & Med Decision Making I was the Attending physician on the above date of service of this patient. This patient was evaluated, examined, treated, and dispositioned from the emergency department by the mid-level practitioner. Although I was working at the time , no assistance was requested. Electronically signed, Dora Celestin DO (DORA CELESTIN DO) Chase Disclaimer: Chase Disclaimer: This electronic medical record was generated, in whole or in part, using a voice recognition dictation system. (ALEA MURILLO) Departure Departure: Impression: Primary Impression: COVID-19 virus infection Disposition: HOME / SELF CARE / HOMELESS Condition: STABLE Referrals: FEDE [place] (PCP) Patient Instructions: Viral Syndrome Additional Instructions: Follow the following supportive treatment measures: - Cool mist humidifier with plain water at bedside while you sleep - Mucinex (guaifenesin) per box instructions - Oral syrup for cough, especially at night before bed - Alternate ibuprofen and acetaminophen every four hours for body aches/fever /headache - Use the incentive spirometer 5 times per day with 10 deep breaths each time If antibiotics were prescribed, take them as directed. You have been tested for or diagnosed with COVID-19 infection. It is an infection caused by a new type of coronavirus. COVID-19 will cause cold-like or mild flu symptoms in most. It can cause more severe symptoms like problems breathing in some. There is no treatment for COVID-19. The body will clear the infection over time. Self-care will help to ease discomfort. Steps to Take: - Rest as needed. - Choose healthy foods including fruits and vegetables. Drink water throughout the day. - Get plenty of sleep each night. - If you smoke, try to quit. It may ease breathing. - Avoid alcohol. - Keep Others Healthy - The virus can spread to others. Droplets are released every time you sneeze or cough. The droplets can get into the mouth, nose, or eyes of people near you and lead to infection. To lower the chances of spreading COVID-19 to others: Stay at home until your doctor has said it is safe to leave. If you tested positive this will mean staying isolated until both of the following are true: - At least 7 days have passed since the start of illness. - You are free of fever for at least 72 hours without the use of medicine. During this time: - Avoid public areas, events, or transportation. Do not return to work or school until your doctor has said it is safe to do so. - Call ahead if you need to go to a medical center. Let them know you may have COVID-19. It will help them guide you where to go. They may also ask you to wear a facemask when you come to the office. - If you call for emergency medical services, let them know you may have COVID- 19. While at home: - Try to avoid close contact with others. Stay about 6 feet away. - If possible, spend most of your time in a separate room from others. - Use a face mask if you will be in close contact with others such as sharing a room or vehicle. - Have someone wipe down common surfaces in the home. Use household amalgamator every day on areas like doorknobs, counters, or sinks. - Cough or sneeze into a tissue. Throw the tissue away right after use. If a tissue is not available, cough or sneeze into your elbow. - Wash your hands often. Wash them after sneezing or coughing. Use soap and water and wash or at least 20 seconds. Alcohol based hand industrial sweeper cleaner can be used if soap and water is not available. - Do not prepare food for others. Avoid sharing personal items like forks, spoons, or toothbrushes. - Avoid close contact with pets while you are sick. There is no evidence of the virus passing to pets. This is a safety step until more is known about this virus. - Isolation can be frustrating. Social interaction can help. Keep in touch with friends and family through phone and tech options. You can still interact with others in your home, just keep a safe distance of about 6 feet. Follow-up: - Your doctors office will check in with you to see if there are any changes in your health. - You may be asked to keep track of symptoms to share with them. They will also let you know when you are clear to be in public again. Contact your doctor if your recovery is not going as you expect. Get emergency care if you have problems such as: - Trouble breathing with oxygen saturation <90% - Nonstop chest pain or pressure - Changes in awareness, confusion, or problems waking - Lips or face have bluish color - Worsening of symptoms If you think you have an emergency, call for emergency medical services right away. As taken from [facility] Promethazine HCl/Codeine (Prometh-Codein 6.25-10 mg/5 ml) 5 Ml Syrup 5 ML PO HS PRN for cough MDD 30 Milliliter(s), #120 ML 0 Refills Prov: ALEA MURILLO 05/02/21 ALEA MURILLO May 02, 2021 11:42 DORA CELESTIN DO May 02, 2021 15:23
[2021-05-02 11:58] LABS: INFLUENZA A PATIENT NEGATIVE (NEGATIVE); INFLUENZA B PATIENT NEGATIVE (NEGATIVE)
[2021-05-02 12:14] VITALS: BP 139/87
[2021-05-02] MEDS ORDERED: PROM5SYR2 PO (12:17)
== END 2021-05-02 12:30 | disposition home or self-care (01) ==
LOC: ER 10:01
DX: U07.1 COVID-19 (principal); J45.909 Unspecified asthma, uncomplicated; K21.9 Gastro-esophageal reflux disease without esophagitis; F17.210 Nicotine dependence, cigarettes, uncomplicated; Z86.2 Personal history of diseases of the blood and blood-forming organs and certain disorders involving the immune mechanism
CPT/HCPCS: 71045; 87426; 87804; 99284